=== PATIENT | female | born 1950 | race Hispanic/Latino ===

== ENCOUNTER 2017-08-07 15:00 | Outpatient (RCR) | payer MEDICARE, OTHER ==
[~2017-08-07 15:00] MED LIST: CARAFATE1 GM PO; DIOVAN80 MG PO; ESTER-C 500 MG1 EACH PO; KEFLEX500 MG PO; LANTUS100 UNITS/ SC; LOVASTATIN40 MG PO; NORCO 7.5-3251 EACH PO; TYLENOL PO; TYLENOL W/ CODEINE PO
== END 2017-08-08 ==
LOC: PT 15:00
PROVIDERS: ATTEND Specialist
DX: M47.816 Spondylosis without myelopathy or radiculopathy, lumbar region (principal); M54.5 Low back pain; M53.86 Other specified dorsopathies, lumbar region; M62.81 Muscle weakness (generalized)
CPT/HCPCS: 97110 ×2; 97162; G8978; G8979

== ENCOUNTER 2017-08-25 11:00 | Outpatient (RCR) | payer MEDICARE, OTHER | END 2017-09-08 | LOC: PT 11:00 | PROVIDERS: ATTEND Specialist | DX: M47.816 Spondylosis without myelopathy or radiculopathy, lumbar region (principal); M53.86 Other specified dorsopathies, lumbar region; M54.5 Low back pain; M62.81 Muscle weakness (generalized) | CPT/HCPCS: 97010; 97110 ×7; G8979; G8980 ==

== ENCOUNTER 2018-08-06 10:00 | Outpatient (RCR) | payer MEDICARE, OTHER | END 2018-08-08 | LOC: ST 10:00 | PROVIDERS: ATTEND Physical Medicine & Rehabilitation | DX: I62.9 Nontraumatic intracranial hemorrhage, unspecified (principal); R13.10 Dysphagia, unspecified; Z87.01 Personal history of pneumonia (recurrent) | CPT/HCPCS: 92523 ==

== ENCOUNTER 2018-08-25 11:53 | Outpatient (RCR) | payer MEDICARE, OTHER | END 2018-09-08 | LOC: ST 11:53 | PROVIDERS: ATTEND Physical Medicine & Rehabilitation | DX: I62.9 Nontraumatic intracranial hemorrhage, unspecified (principal); I69.315 Cognitive social or emotional deficit following cerebral infarction; R53.1 Weakness; M62.81 Muscle weakness (generalized); R27.8 Other lack of coordination; R26.9 Unspecified abnormalities of gait and mobility; R26.81 Unsteadiness on feet ==

== ENCOUNTER 2018-09-11 14:58 | Inpatient (IN) | payer MEDICARE, OTHER ==
[~2018-09-11] VITALS: Ht 160 cm; Wt 72.1 kg
--- OUTSIDE RECORDS SUMMARY | 2018-09-11 15:03 | XMS REPORT ---
Author Author [facility] Address Unknown Phone Unavailable Care Team Providers Care Call Or Contact Centre Operator Name Role Phone Unavailable Unavailable Payers Payer Name Policy Type Policy Number Effective Date Expiration Date Problems This patient has no known problems. Allergies, Adverse Reactions, Alerts Allergy Name Allergy Type Status Severity Reaction(s) Onset Date Inactive Date Treating Clinician Comments No Known Allergies DA Active U 2018-08-10 00:00:00 No Known Allergies DA Active U 2018-07-02 00:00:00 No Known Allergies DA Active U 2018-06-24 00:00:00 No Known Allergies DA Active U 2017-09-11 00:00:00 Medications This patient has no known medications. Results Test Description Test Time Test Comments Text Results Atomic Results Result Comments GLUBED 2018-08-10 04:59:00 GLUBED (test code=GLUBED) 185 mg/dL 74-106 Performed by certified chief operator hydroformer at [facility] B-TYPE NATRIURETIC [id number] 04:25:00* Test Item Value Reference Range Comments B-TYPE NATRIURETIC PEPTIDE (test code=BNP) 71.85 pgram/mL 0-100 COMPREHENSIVE METABOLIC [id number] 04:18:00* Test Item Value Reference Range Comments SODIUM (test code=NA) 142 mmol/L 136-145 POTASSIUM (test code=K) 3.6 mmol/L 3.5-5.1 CHLORIDE (test code=CL) 110.0 mmol/L 98-107 CARBON DIOXIDE (test code=CO2) 23.0 mmol/L 21-32 ANION GAP (test code=GAP) 12.6 10-20 GLUCOSE (test code=GLU) 112 mg/dL 74-106 BLOOD UREA NITROGEN (test code=BUN) 12 mg/dL 7-18 GLOMERULAR FILTRATION RATE (test code=GFR) > 60 mL/min >=60 Estimated GFR by using Modified MDRD formula.Chronic kidney disease is defined as either kidney damageor GFR <60 mL/min/1.73 m2 for >3 months. CREATININE (test code=CREAT) 0.80 mg/dL 0.55-1.02 Note change in reference range due to change in reagent. BUN/CREATININE RATIO (test code=BUN/CREA) 15.0 10-20 TOTAL PROTEIN (test code=PROT) 6.2 gram/dL 6.4-8.2 ALBUMIN (test code=ALB) 2.2 g/dL 3.4-5.0 GLOBULIN (test code=GLOB) 4.0 gram/dL 2.7-4.2 ALBUMIN/GLOBULIN RATIO (test code=A/G) 0.6 0.75-1.50 CALCIUM (test code=CA) 8.5 mg/dL 8.5-10.1 BILIRUBIN TOTAL (test code=BILT) 0.20 mg/dL 0.0-1.0 SGOT/AST (test code=AST) 27 IUnit/L 15-37 SGPT/ALT (test code=ALT) 15 IUnit/L 12-78 ALKALINE PHOSPHATASE TOTAL (test code=ALKP) 95 IUnit/L 45-117 Note change in reference range due to change in reagent. [id number] 04:18:00* Test Item Value Reference Range Comments LIPASE (test code=LIP) 27 U/L 73.0-393.0 [id number] 04:18:00* Test Item Value Reference Range Comments CKMB (test code=CKMBT) < 1.0 ng/mL 0-6.0 [id number] 04:18:00* Test Item Value Reference Range Comments TROPONIN-I (test code=TROPI) <0.015 ng/mL 0-0.045 COMPREHENSIVE METABOLIC [id number] 04:01:00* Test Item Value Reference Range Comments SODIUM (test code=NA) 142 mmol/L 136-145 POTASSIUM (test code=K) 3.6 mmol/L 3.5-5.1 CHLORIDE (test code=CL) 110.0 mmol/L 98-107 CARBON DIOXIDE (test code=CO2) mmol/L 21-32 ANION GAP (test code=GAP) 10-20 GLUCOSE (test code=GLU) mg/dL 74-106 BLOOD UREA NITROGEN (test code=BUN) mg/dL 7-18 GLOMERULAR FILTRATION RATE (test code=GFR) mL/min >=60 CREATININE (test code=CREAT) mg/dL 0.55-1.02 BUN/CREATININE RATIO (test code=BUN/CREA) 10-20 TOTAL PROTEIN (test code=PROT) gram/dL 6.4-8.2 ALBUMIN (test code=ALB) g/dL 3.4-5.0 GLOBULIN (test code=GLOB) gram/dL 2.7-4.2 ALBUMIN/GLOBULIN RATIO (test code=A/G) 0.75-1.50 CALCIUM (test code=CA) mg/dL 8.5-10.1 BILIRUBIN TOTAL (test code=BILT) mg/dL 0.0-1.0 SGOT/AST (test code=AST) IUnit/L 15-37 SGPT/ALT (test code=ALT) IUnit/L 12-78 ALKALINE PHOSPHATASE TOTAL (test code=ALKP) IUnit/L 45-117 [id number] 04:01:00* Test Item Value Reference Range Comments LIPASE (test code=LIP) U/L 73.0-393.0 [id number] 04:01:00* Test Item Value Reference Range Comments CKMB (test code=CKMBT) ng/mL 0-6.0 [id number] 04:01:00* Test Item Value Reference Range Comments TROPONIN-I (test code=TROPI) ng/mL 0-0.045 URINALYSIS [id number] 03:49:00* Test Item Value Reference Range Comments UA COLOR (test code=COLU) COLORLESS YELLOW UA APPEARANCE (test code=APPU) CLEAR CLEAR UA GLUCOSE DIPSTICK (test code=DGLUU) NEGATIVE mg/dL NEGATIVE UA BILIRUBIN DIPSTICK (test code=BILU) NEGATIVE mg/dL NEGATIVE UA KETONE DIPSTICK (test code=KETU) NEGATIVE mg/dL NEGATIVE UA SPECIFIC GRAVITY (test code=SGU) 1.005 1.001-1.035 UA BLOOD DIPSTICK (test code=AZAEL) Negative mg/dL NEGATIVE UA PH DIPSTICK (test code=MARK) 6.0 5.0-8.0 UA PROTEIN DIPSTICK (test code=PROU) NEGATIVE mg/dL NEGATIVE UA UROBILINIOGEN DIPSTICK (test code=URO) Normal mg/dL NEGATIVE UA NITRITE DIPSTICK (test code=ROXANN) NEGATIVE NEGATIVE UA LEUKOCYTE ESTERASE W REFLEX (test code=LEUUR) NEGATIVE Gloria/uL NEGATIVE UA WBC (test code=WBCU) 0-5 per HPF 0-5 UA RBC (test code=RBCU) 0-2 #/HPF 0-5 UA EPITHELIAL CELLS (test code=EPIU) FEW per HPF FEW UA BACTERIA (test code=BACU) MODERATE #/HPF NONE Urine Source? Clean CatchCBC W/AUTO [id number] 03:43:00* Test Item Value Reference Range Comments WHITE BLOOD CELL (test code=WBC) 7.3 K/mm3 4.5-12.5 RED BLOOD CELL (test code=RBC) 4.04 mill/mm3 3.7-5.2 HEMOGLOBIN (test code=HGB) 12.9 gram/dL 11.5-15.5 HEMATOCRIT (test code=HCT) 41.3 % 36.0-46.0 MEAN CELL VOLUME (test code=MCV) 102.2 fL 80-98 MEAN CELL HGB (test code=MCH) 31.9 picogram 27.0-33.0 MEAN CELL HGB CONCETRATION (test code=MCHC) 31.2 gram/dL 33.0-36.0 RED CELL DISTRIBUTION WIDTH (test code=RDW) 12.3 % 11.6-16.2 RED CELL DISTRIBUTION WIDTH SD (test code=RDW-SD) 45.9 fL 37.0-51.0 PLATELET COUNT (test code=PLT) 171 K/mm3 150-450 MEAN PLATELET VOLUME (test code=MPV) 9.8 fL 6.7-11.0 NEUTROPHIL % (test code=NT%) 73.1 % 39.0-69.0 IMMATURE GRANULOCYTE % (test code=IG%) 0.3 % 0.0-5.0 LYMPHOCYTE % (test code=LY%) 19.2 % 25.0-55.0 MONOCYTE % (test code=MO%) 6.6 % 0.0-10.0 EOSINOPHIL % (test code=EO%) 0.4 % 0.0-5.0 BASOPHIL % (test code=BA%) 0.4 % 0.0-1.0 NUCLEATED RBC % (test code=NRBC%) 0.0 % 0-0 NEUTROPHIL # (test code=NT#) 5.30 K/mm3 1.8-7.7 IMMATURE GRANULOCYTE # (test code=IG#) 0.02 x10 3/uL 0-0.03 LYMPHOCYTE # (test code=LY#) 1.39 K/mm3 1.0-5.0 MONOCYTE # (test code=MO#) 0.48 K/mm3 0-0.8 EOSINOPHIL # (test code=EO#) 0.03 K/mm3 0.0-0.5 BASOPHIL # (test code=BA#) 0.03 K/mm3 0.0-0.2 NUCLEATED RBC # (test code=NRBC#) 0.00 K/mm3 0.0-0.1 CBC W/AUTO [id number] 03:39:00* Test Item Value Reference Range Comments WHITE BLOOD CELL (test code=WBC) K/mm3 4.5-12.5 RED BLOOD CELL (test code=RBC) mill/mm3 3.7-5.2 HEMOGLOBIN (test code=HGB) 12.9 gram/dL 11.5-15.5 HEMATOCRIT (test code=HCT) 41.3 % 36.0-46.0 MEAN CELL VOLUME (test code=MCV) fL 80-98 MEAN CELL HGB (test code=MCH) picogram 27.0-33.0 MEAN CELL HGB CONCETRATION (test code=MCHC) gram/dL 33.0-36.0 RED CELL DISTRIBUTION WIDTH (test code=RDW) % 11.6-16.2 RED CELL DISTRIBUTION WIDTH SD (test code=RDW-SD) fL 37.0-51.0 PLATELET COUNT (test code=PLT) K/mm3 150-450 MEAN PLATELET VOLUME (test code=MPV) fL 6.7-11.0 NEUTROPHIL % (test code=NT%) % 39.0-69.0 IMMATURE GRANULOCYTE % (test code=IG%) % 0.0-5.0 LYMPHOCYTE % (test code=LY%) % 25.0-55.0 MONOCYTE % (test code=MO%) % 0.0-10.0 EOSINOPHIL % (test code=EO%) % 0.0-5.0 BASOPHIL % (test code=BA%) % 0.0-1.0 NEUTROPHIL # (test code=NT#) K/mm3 1.8-7.7 LYMPHOCYTE # (test code=LY#) K/mm3 1.0-5.0 MONOCYTE # (test code=MO#) K/mm3 0-0.8 EOSINOPHIL # (test code=EO#) K/mm3 0.0-0.5 BASOPHIL # (test code=BA#) K/mm3 0.0-0.2 - CT HEAD/BRAIN W/O [id number] 03:07:00 Name: DALLINSABRINA [facility] : 1950 Age/S: 68 / F [address] [facility] Unit #: [id number] Loc: [place] [address] Phys: Audrey Valencia MD Acct: [id number] Dis Date: Status: PRE ER PHONE #: [phone] Exam Date: 08/10/2018 0300 FAX #: [phone] Reason: ams EXAMS: CPT CODE: [id number] CT HEAD/BRAIN W/O CONT 24182 EXAM: - CT HEAD/BRAIN W/O CONT Location code:C3 HISTORY: 68 years -old Female with ams TECHNIQUE: Axial CT images from the skull base to the vertex without intravenous contrast. Coronal and sagittal reformatted images were created from the data set. One or more of the following dose reduction techniques were used: Automated exposure control, adjustment of the mA and/or kV according to patient size, and/or utilization of iterative reconstruction technique. COMPARISON: 07/13/2018 FINDINGS: Intracranial: There is left temporal encepha lomalacia present in the area of previously seen hemorrhage or infarction. No new area of intracranial hemorrhage demonstrated No hyd rocephalus. No intracranial mass demonstrated. Previously seen mass effe ct is improved. No acute osseous abnormalities. No significant sinus opa cification. Vascular calcifications are noted. No other changes. IMPRESSION: 1. Expected evolutionary changes of prev iously seen area left temporal hemorrhage with encephalomalacia noted in this region. Mass effect is improved. No new hemorrhage demonstrated. No other changes. at 0307 Reported and signed by: Pratibha Donovan MD CC: John Santillan MD; Audrey Valencia MD Technol ogist:JOSEPHINE ARANDA CT CTDI: DLP: Trnscb Date/Time: 08/10/2018 (030) [email or web address] Orig Print D/T: S: 08/10/2018 (6849) PAGE 1 Signed Report - XR CHEST 1 [id number] 03:04:00 FAX: John Lombardo [phone] [place]: St: PRE FAX: Audrey Marquez [phone] Name: SABRINA ZAMARRIPA [facility] : 1950 Age/S: 68/F [address] [facility] Unit #: [id number] Loc: [place] [address] Phys: Audrey Valencia MD Acct: [id number] Dis Date: Status: PRE ER PHONE #: [phone] Exam Date: 08/10/2018 030 FAX #: [phone] Reason: ams EXAMS: CPT CODE: [id number] XR CHEST 1 V 24050 HISTORY: Altered mental status Location: C3 COMPARISON:07/09/2018 FINDINGS: There is car diomegaly. Vascularity is upper normal. The lungs are clear of focal con solidation. No effusion, pneumothorax, or acute osseous abnormality. IMPRESSION: 1. Cardiomegaly. No focal con solidation. at 0304 Reported and signed by: Pratibha Donovan MD CC: John Santillan MD; Audrey Valencia MD Techn ologist: RT RAKESH Trnscrd Date/Grant e/By: 08/10/2018 (030) : By: [email or web address] Orig Print D/T: S: 08/10/2018 (6891) PAGE 1 Signed Report [id number] 02:54:00* Test Item Value Reference Range Comments GLUBED (test code=GLUBED) 72 mg/dL 74-106 Performed by certified chief operator hydroformer at [facility] [id number] 11:11:00* Test Item Value Reference Range Comments GLUBED (test code=GLUBED) 172 mg/dL 74-106 Performed by certified chief operator hydroformer at [facility] [id number] 21:32:00* Test Item Value Reference Range Comments GLUBED (test code=GLUBED) 168 mg/dL 74-106 Performed by certified chief operator hydroformer at [facility] [id number] 20:16:00* Test Item Value Reference Range Comments GLUBED (test code=GLUBED) 66 mg/dL 74-106 Performed by certified chief operator hydroformer at [facility] [id number] 15:57:00* Test Item Value Reference Range Comments GLUBED (test code=GLUBED) 168 mg/dL 74-106 Performed by certified chief operator hydroformer at [facility] - CT HEAD/BRAIN W/O [id number] 13:13:00 Name: SABRINA ZAMARRIPA [facility] : 1950 Age/S: 68 / F [address] [facility] Unit #: [id number] Loc: [place] [address] Phys: Doris Bush MD Acct: [id number] Dis Date: Status: ADM IN PHONE #: [phone] Exam Date: 07/13/2018 1305 FAX #: [phone] Reason: AMS, headache EXAMS: CPT CODE: [id number] CT HEAD/BRAIN W/O CONT 08688 HISTORY: Confusion and headaches. COMPARISON: Head CT July 05, 2018. CT brain without contrast: Automated exposure control.. Resolving extensive left frontal and parietal hemorrhage noted. There is decreasing mass effect on the subjacent brain parenchyma. Decreasing subfalcine herniation towards the right side estimated at 7.3 cm. No new hemorrhage is noted. 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 No new hemorrhage. No hydrocephalus. Fourth ventricle remains midline. No new acute territorial vascular infarction. Chronic white matter ischemic disease. The intraorbital contents are unremarkable. The paranasal sinuses are clear. Mastoid air cells are clear. 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 IMPRESSION: Decreasing parenchymal hemorrhage in the left temporal and parietal cortex with decreasing mass effect and decreasing subfalcine herniation. No new hemorrhage or new territorial infarction. at 1313 Reported and sign ed by: Cortez Esparza M.D. CC: Doris Bush MD; Wendi Chaudhary [facility]; John Santillan MD Technologist:Rajwinder Daly RT(R),CT CTDI: D LP: Trnscb Date/Time: 07/13/2018 (1313) [email or web address] Orig Print D/T: S: 07/13/2018 (5775) PAGE 1 Signed R eport [id number] 11:19:00* Test Item Value Reference Range Comments GLUBED (test code=GLUBED) 240 mg/dL 74-106 Performed by certified chief operator hydroformer at [facility] [id number] 06:49:00* Test Item Value Reference Range Comments GLUBED (test code=GLUBED) 104 mg/dL 74-106 Performed by certified chief operator hydroformer at [facility] [id number] 20:41:00* Test Item Value Reference Range Comments GLUBED (test code=GLUBED) 130 mg/dL 74-106 Performed by certified chief operator hydroformer at [facility] [id number] 15:23:00* Test Item Value Reference Range Comments GLUBED (test code=GLUBED) 198 mg/dL 74-106 Performed by certified chief operator hydroformer at [facility] [id number] 10:51:00* Test Item Value Reference Range Comments GLUBED (test code=GLUBED) 160 mg/dL 74-106 Performed by certified chief operator hydroformer at [facility] [id number] 07:14:00* Test Item Value Reference Range Comments GLUBED (test code=GLUBED) 99 mg/dL 74-106 Performed by certified chief operator hydroformer at [facility] URINALYSIS [id number] 21:51:00* Test Item Value Reference Range Comments UA COLOR (test code=COLU) YELLOW YELLOW UA APPEARANCE (test code=APPU) CLEAR CLEAR UA GLUCOSE DIPSTICK (test code=DGLUU) NEGATIVE mg/dL NEGATIVE UA BILIRUBIN DIPSTICK (test code=BILU) NEGATIVE mg/dL NEGATIVE UA KETONE DIPSTICK (test code=KETU) NEGATIVE mg/dL NEGATIVE UA SPECIFIC GRAVITY (test code=SGU) 1.019 1.001-1.035 UA BLOOD DIPSTICK (test code=AZAEL) Negative mg/dL NEGATIVE UA PH DIPSTICK (test code=MARK) 7.0 5.0-8.0 UA PROTEIN DIPSTICK (test code=PROU) NEGATIVE mg/dL NEGATIVE UA UROBILINIOGEN DIPSTICK (test code=URO) 4.0 (2+) mg/dL NEGATIVE UA NITRITE DIPSTICK (test code=ROXANN) NEGATIVE NEGATIVE UA LEUKOCYTE ESTERASE W REFLEX (test code=LEUUR) NEGATIVE Gloria/uL NEGATIVE UA WBC (test code=WBCU) 0-5 per HPF 0-5 UA RBC (test code=RBCU) 0-2 #/HPF 0-5 UA EPITHELIAL CELLS (test code=EPIU) FEW per HPF FEW UA BACTERIA (test code=BACU) FEW #/HPF NONE UA MUCUS (test code=MUCU) FEW #/LPF FEW Urine Source? Clean CatchURINALYSIS [id number] 21:47:00* Test Item Value Reference Range Comments UA COLOR (test code=COLU) YELLOW YELLOW UA APPEARANCE (test code=APPU) CLEAR CLEAR UA GLUCOSE DIPSTICK (test code=DGLUU) NEGATIVE mg/dL NEGATIVE UA BILIRUBIN DIPSTICK (test code=BILU) NEGATIVE mg/dL NEGATIVE UA KETONE DIPSTICK (test code=KETU) NEGATIVE mg/dL NEGATIVE UA SPECIFIC GRAVITY (test code=SGU) 1.019 1.001-1.035 UA BLOOD DIPSTICK (test code=AZAEL) Negative mg/dL NEGATIVE UA PH DIPSTICK (test code=MARK) 7.0 5.0-8.0 UA PROTEIN DIPSTICK (test code=PROU) NEGATIVE mg/dL NEGATIVE UA UROBILINIOGEN DIPSTICK (test code=URO) 4.0 (2+) mg/dL NEGATIVE UA NITRITE DIPSTICK (test code=ROXANN) NEGATIVE NEGATIVE UA LEUKOCYTE ESTERASE W REFLEX (test code=LEUUR) NEGATIVE Gloria/uL NEGATIVE UA WBC (test code=WBCU) per HPF 0-5 UA RBC (test code=RBCU) per HPF 0-5 UA EPITHELIAL CELLS (test code=EPIU) per HPF Few UA BACTERIA (test code=BACU) per HPF NONE Urine Source? Clean [id number] 20:05:00* Test Item Value Reference Range Comments GLUBED (test code=GLUBED) 166 mg/dL 74-106 Performed by certified chief operator hydroformer at [facility] BASIC METABOLIC [id number] 19:56:00* Test Item Value Reference Range Comments SODIUM (test code=NA) 140 mmol/L 136-145 POTASSIUM (test code=K) 3.9 mmol/L 3.5-5.1 CHLORIDE (test code=CL) 104.0 mmol/L 98-107 CARBON DIOXIDE (test code=CO2) 31.0 mmol/L 21-32 ANION GAP (test code=GAP) 8.9 10-20 GLUCOSE (test code=GLU) 174 mg/dL 74-106 BLOOD UREA NITROGEN (test code=BUN) 16 mg/dL 7-18 GLOMERULAR FILTRATION RATE (test code=GFR) > 60 mL/min >=60 Estimated GFR by using Modified MDRD formula.Chronic kidney disease is defined as either kidney damageor GFR <60 mL/min/1.73 m2 for >3 months. CREATININE (test code=CREAT) 0.80 mg/dL 0.55-1.02 Note change in reference range due to change in reagent. BUN/CREATININE RATIO (test code=BUN/CREA) 20.0 10-20 CALCIUM (test code=CA) 9.3 mg/dL 8.5-10.1 BASIC METABOLIC [id number] 19:53:00* Test Item Value Reference Range Comments SODIUM (test code=NA) 140 mmol/L 136-145 POTASSIUM (test code=K) 3.9 mmol/L 3.5-5.1 CHLORIDE (test code=CL) 104.0 mmol/L 98-107 CARBON DIOXIDE (test code=CO2) mmol/L 21-32 ANION GAP (test code=GAP) 10-20 GLUCOSE (test code=GLU) mg/dL 74-106 BLOOD UREA NITROGEN (test code=BUN) mg/dL 7-18 GLOMERULAR FILTRATION RATE (test code=GFR) mL/min >=60 CREATININE (test code=CREAT) mg/dL 0.55-1.02 BUN/CREATININE RATIO (test code=BUN/CREA) 10-20 CALCIUM (test code=CA) mg/dL 8.5-10.1 BASIC METABOLIC [id number] 19:53:00* Test Item Value Reference Range Comments SODIUM (test code=NA) 140 mmol/L 136-145 POTASSIUM (test code=K) 3.9 mmol/L 3.5-5.1 CHLORIDE (test code=CL) 104.0 mmol/L 98-107 CARBON DIOXIDE (test code=CO2) mmol/L 21-32 ANION GAP (test code=GAP) 10-20 GLUCOSE (test code=GLU) mg/dL 74-106 BLOOD UREA NITROGEN (test code=BUN) mg/dL 7-18 GLOMERULAR FILTRATION RATE (test code=GFR) mL/min >=60 CREATININE (test code=CREAT) mg/dL 0.55-1.02 BUN/CREATININE RATIO (test code=BUN/CREA) 10-20 CALCIUM (test code=CA) 9.3 mg/dL 8.5-10.1 CBC W/AUTO [id number] 19:33:00* Test Item Value Reference Range Comments WHITE BLOOD CELL (test code=WBC) 8.9 K/mm3 4.5-12.5 RED BLOOD CELL (test code=RBC) 3.46 mill/mm3 3.7-5.2 HEMOGLOBIN (test code=HGB) 11.8 gram/dL 11.5-15.5 HEMATOCRIT (test code=HCT) 37.7 % 36.0-46.0 MEAN CELL VOLUME (test code=MCV) 109.0 fL 80-98 MEAN CELL HGB (test code=MCH) 34.1 picogram 27.0-33.0 MEAN CELL HGB CONCETRATION (test code=MCHC) 31.3 gram/dL 33.0-36.0 RED CELL DISTRIBUTION WIDTH (test code=RDW) 12.8 % 11.6-16.2 RED CELL DISTRIBUTION WIDTH SD (test code=RDW-SD) 51.6 fL 37.0-51.0 PLATELET COUNT (test code=PLT) 235 K/mm3 150-450 MEAN PLATELET VOLUME (test code=MPV) 9.3 fL 6.7-11.0 NEUTROPHIL % (test code=NT%) 71.7 % 39.0-69.0 IMMATURE GRANULOCYTE % (test code=IG%) 0.4 % 0.0-5.0 LYMPHOCYTE % (test code=LY%) 17.0 % 25.0-55.0 MONOCYTE % (test code=MO%) 9.1 % 0.0-10.0 EOSINOPHIL % (test code=EO%) 1.6 % 0.0-5.0 BASOPHIL % (test code=BA%) 0.2 % 0.0-1.0 NUCLEATED RBC % (test code=NRBC%) 0.0 % 0-0 NEUTROPHIL # (test code=NT#) 6.40 K/mm3 1.8-7.7 IMMATURE GRANULOCYTE # (test code=IG#) 0.04 x10 3/uL 0-0.03 LYMPHOCYTE # (test code=LY#) 1.52 K/mm3 1.0-5.0 MONOCYTE # (test code=MO#) 0.81 K/mm3 0-0.8 EOSINOPHIL # (test code=EO#) 0.14 K/mm3 0.0-0.5 BASOPHIL # (test code=BA#) 0.02 K/mm3 0.0-0.2 NUCLEATED RBC # (test code=NRBC#) 0.00 K/mm3 0.0-0.1 MANUAL DIFF REQUIRED (test code=MDIFF) NO CBC W/AUTO [id number] 19:32:00* Test Item Value Reference Range Comments WHITE BLOOD CELL (test code=WBC) K/mm3 4.5-12.5 RED BLOOD CELL (test code=RBC) mill/mm3 3.7-5.2 HEMOGLOBIN (test code=HGB) 11.8 gram/dL 11.5-15.5 HEMATOCRIT (test code=HCT) 37.7 % 36.0-46.0 MEAN CELL VOLUME (test code=MCV) fL 80-98 MEAN CELL HGB (test code=MCH) picogram 27.0-33.0 MEAN CELL HGB CONCETRATION (test code=MCHC) gram/dL 33.0-36.0 RED CELL DISTRIBUTION WIDTH (test code=RDW) % 11.6-16.2 RED CELL DISTRIBUTION WIDTH SD (test code=RDW-SD) fL 37.0-51.0 PLATELET COUNT (test code=PLT) K/mm3 150-450 MEAN PLATELET VOLUME (test code=MPV) fL 6.7-11.0 NEUTROPHIL % (test code=NT%) % 39.0-69.0 IMMATURE GRANULOCYTE % (test code=IG%) % 0.0-5.0 LYMPHOCYTE % (test code=LY%) % 25.0-55.0 MONOCYTE % (test code=MO%) % 0.0-10.0 EOSINOPHIL % (test code=EO%) % 0.0-5.0 BASOPHIL % (test code=BA%) % 0.0-1.0 NEUTROPHIL # (test code=NT#) K/mm3 1.8-7.7 LYMPHOCYTE # (test code=LY#) K/mm3 1.0-5.0 MONOCYTE # (test code=MO#) K/mm3 0-0.8 EOSINOPHIL # (test code=EO#) K/mm3 0.0-0.5 BASOPHIL # (test code=BA#) K/mm3 0.0-0.2 [id number] 15:35:00* Test Item Value Reference Range Comments GLUBED (test code=GLUBED) 200 mg/dL 74-106 Performed by certified chief operator hydroformer at [facility] [id number] 12:24:00* Test Item Value Reference Range Comments GLUBED (test code=GLUBED) 199 mg/dL 74-106 Performed by certified chief operator hydroformer at [facility] [id number] 06:26:00* Test Item Value Reference Range Comments GLUBED (test code=GLUBED) 125 mg/dL 74-106 Performed by certified chief operator hydroformer at [facility] [id number] 19:57:00* Test Item Value Reference Range Comments GLUBED (test code=GLUBED) 282 mg/dL 74-106 Performed by certified chief operator hydroformer at [facility] [id number] 16:18:00* Test Item Value Reference Range Comments GLUBED (test code=GLUBED) 222 mg/dL 74-106 Performed by certified chief operator hydroformer at [facility] [id number] 11:29:00* Test Item Value Reference Range Comments GLUBED (test code=GLUBED) 165 mg/dL 74-106 Performed by certified chief operator hydroformer at [facility] [id number] 07:17:00* Test Item Value Reference Range Comments GLUBED (test code=GLUBED) 88 mg/dL 74-106 Performed by certified chief operator hydroformer at [facility] BASIC METABOLIC [id number] 07:15:00* Test Item Value Reference Range Comments SODIUM (test code=NA) 144 mmol/L 136-145 POTASSIUM (test code=K) 3.5 mmol/L 3.5-5.1 CHLORIDE (test code=CL) 108.0 mmol/L 98-107 CARBON DIOXIDE (test code=CO2) 33.0 mmol/L 21-32 ANION GAP (test code=GAP) 6.5 10-20 GLUCOSE (test code=GLU) 66 mg/dL 74-106 BLOOD UREA NITROGEN (test code=BUN) 21 mg/dL 7-18 GLOMERULAR FILTRATION RATE (test code=GFR) > 60 mL/min >=60 Estimated GFR by using Modified MDRD formula.Chronic kidney disease is defined as either kidney damageor GFR <60 mL/min/1.73 m2 for >3 months. CREATININE (test code=CREAT) 0.60 mg/dL 0.55-1.02 Note change in reference range due to change in reagent. BUN/CREATININE RATIO (test code=BUN/CREA) 35.0 10-20 CALCIUM (test code=CA) 9.0 mg/dL 8.5-10.1 [id number] 07:15:00* Test Item Value Reference Range Comments MAGNESIUM (test code=MAG) 2.0 mg/dL 1.8-2.4 BASIC METABOLIC [id number] 07:09:00* Test Item Value Reference Range Comments SODIUM (test code=NA) 144 mmol/L 136-145 POTASSIUM (test code=K) 3.5 mmol/L 3.5-5.1 CHLORIDE (test code=CL) 108.0 mmol/L 98-107 CARBON DIOXIDE (test code=CO2) mmol/L 21-32 ANION GAP (test code=GAP) 10-20 GLUCOSE (test code=GLU) mg/dL 74-106 BLOOD UREA NITROGEN (test code=BUN) mg/dL 7-18 GLOMERULAR FILTRATION RATE (test code=GFR) mL/min >=60 CREATININE (test code=CREAT) mg/dL 0.55-1.02 BUN/CREATININE RATIO (test code=BUN/CREA) 10-20 CALCIUM (test code=CA) mg/dL 8.5-10.1 [id number] 07:09:00* Test Item Value Reference Range Comments MAGNESIUM (test code=MAG) mg/dL 1.8-2.4 CBC W/O [id number] 06:54:00* Test Item Value Reference Range Comments WHITE BLOOD CELL (test code=WBC) 12.0 K/mm3 4.5-12.5 RED BLOOD CELL (test code=RBC) 3.13 mill/mm3 3.7-5.2 HEMOGLOBIN (test code=HGB) 10.8 gram/dL 11.5-15.5 HEMATOCRIT (test code=HCT) 34.3 % 36.0-46.0 MEAN CELL VOLUME (test code=MCV) 109.6 fL 80-98 MEAN CELL HGB (test code=MCH) 34.5 picogram 27.0-33.0 MEAN CELL HGB CONCETRATION (test code=MCHC) 31.5 gram/dL 33.0-36.0 RED CELL DISTRIBUTION WIDTH (test code=RDW) 13.0 % 11.6-16.2 PLATELET COUNT (test code=PLT) 223 K/mm3 150-450 MEAN PLATELET VOLUME (test code=MPV) 9.7 fL 6.7-11.0 [id number] 19:59:00* Test Item Value Reference Range Comments GLUBED (test code=GLUBED) 231 mg/dL 74-106 Performed by certified chief operator hydroformer at [facility] [id number] 15:56:00* Test Item Value Reference Range Comments GLUBED (test code=GLUBED) 290 mg/dL 74-106 Performed by certified chief operator hydroformer at [facility] - XR CHEST 2 [id number] 12:11:00 FAX: Grant Sotelo [phone] [place]: St: ADM FAX: John Lombardo [phone] Name: SABRINA ZAMARRIPA [facility] : 1950 Age/S: 68/F [address] [facility] Unit #: [id number] Loc: V.3095 [place] [address] Phys: Grant Chaudhary DO Acct: [id number] Dis Date: Status: ADM IN PHONE #: [phone] Exam Date: 07/09/2018 1120 FAX #: [phone] Reason: congestion EXAMS: CPT CODE: [id number] XR CHEST 2 V 24642 HISTORY: Congestion. COMPARISON: July 01, 2018. AP and lateral view of the chest: No acute infiltrates, effusion or congestion. Suboptimal inspiration. Dependent changes. Cardiac silhouette is mildly enlarged. DJD of the dorsal spine. IMPRESSION: No acute infiltrates, effusion or congestion. at 1211 Reported and signed by: Cortez Esparza M.D. CC: Grant Chaudhary DO; John Santillan MD Technologist: SUKI MEAD) Trnscrd Date/Time/By: 07/09/2018 (6931) : By: [email or web address] Orig Print D/T: S: 07/09/2018 (0820) PAGE 1 Signed Report [id number] 11:08:00* Test Item Value Reference Range Comments GLUBED (test code=GLUBED) 230 mg/dL 74-106 Performed by certified chief operator hydroformer at [facility] [id number] 06:07:00* Test Item Value Reference Range Comments GLUBED (test code=GLUBED) 123 mg/dL 74-106 Performed by certified chief operator hydroformer at [facility] [id number] 20:08:00* Test Item Value Reference Range Comments GLUBED (test code=GLUBED) 228 mg/dL 74-106 Performed by certified chief operator hydroformer at [facility] [id number] 19:53:00* Test Item Value Reference Range Comments GLUBED (test code=GLUBED) 240 mg/dL 74-106 Performed by certified chief operator hydroformer at [facility] [id number] 11:19:00* Test Item Value Reference Range Comments GLUBED (test code=GLUBED) 137 mg/dL 74-106 Performed by certified chief operator hydroformer at [facility] [id number] 06:23:00* Test Item Value Reference Range Comments GLUBED (test code=GLUBED) 153 mg/dL 74-106 Performed by certified chief operator hydroformer at [facility] [id number] 20:25:00* Test Item Value Reference Range Comments GLUBED (test code=GLUBED) 142 mg/dL 74-106 Performed by certified chief operator hydroformer at [facility] [id number] 16:22:00* Test Item Value Reference Range Comments GLUBED (test code=GLUBED) 150 mg/dL 74-106 Performed by certified chief operator hydroformer at [facility] [id number] 11:52:00* Test Item Value Reference Range Comments GLUBED (test code=GLUBED) 131 mg/dL 74-106 Performed by certified chief operator hydroformer at [facility] [id number] 06:45:00* Test Item Value Reference Range Comments GLUBED (test code=GLUBED) 166 mg/dL 74-106 Performed by certified chief operator hydroformer at [facility] URINALYSIS [id number] 22:15:00* Test Item Value Reference Range Comments UA COLOR (test code=COLU) YELLOW YELLOW UA APPEARANCE (test code=APPU) Cloudy CLEAR UA GLUCOSE DIPSTICK (test code=DGLUU) NEGATIVE mg/dL NEGATIVE UA BILIRUBIN DIPSTICK (test code=BILU) NEGATIVE mg/dL NEGATIVE UA KETONE DIPSTICK (test code=KETU) NEGATIVE mg/dL NEGATIVE UA SPECIFIC GRAVITY (test code=SGU) 1.025 1.001-1.035 UA BLOOD DIPSTICK (test code=AZAEL) Negative mg/dL NEGATIVE UA PH DIPSTICK (test code=MARK) 6.0 5.0-8.0 UA PROTEIN DIPSTICK (test code=PROU) 10 (Trace) mg/dL NEGATIVE UA UROBILINIOGEN DIPSTICK (test code=URO) 4.0 (2+) mg/dL NEGATIVE UA NITRITE DIPSTICK (test code=ROXANN) NEGATIVE NEGATIVE UA LEUKOCYTE ESTERASE W REFLEX (test code=LEUUR) 250 Gloria/uL (2+) Gloria/uL NEGATIVE UA WBC (test code=WBCU) 21-50 per HPF 0-5 UA RBC (test code=RBCU) 0-2 #/HPF 0-5 UA EPITHELIAL CELLS (test code=EPIU) FEW per HPF FEW UA BACTERIA (test code=BACU) MANY #/HPF NONE UA MUCUS (test code=MUCU) FEW #/LPF FEW Urine Source? CatheterURINALYSIS [id number] 22:12:00* Test Item Value Reference Range Comments UA COLOR (test code=COLU) YELLOW YELLOW UA APPEARANCE (test code=APPU) Cloudy CLEAR UA GLUCOSE DIPSTICK (test code=DGLUU) NEGATIVE mg/dL NEGATIVE UA BILIRUBIN DIPSTICK (test code=BILU) NEGATIVE mg/dL NEGATIVE UA KETONE DIPSTICK (test code=KETU) NEGATIVE mg/dL NEGATIVE UA SPECIFIC GRAVITY (test code=SGU) 1.025 1.001-1.035 UA BLOOD DIPSTICK (test code=AZAEL) Negative mg/dL NEGATIVE UA PH DIPSTICK (test code=MARK) 6.0 5.0-8.0 UA PROTEIN DIPSTICK (test code=PROU) 10 (Trace) mg/dL NEGATIVE UA UROBILINIOGEN DIPSTICK (test code=URO) 4.0 (2+) mg/dL NEGATIVE UA NITRITE DIPSTICK (test code=ROXANN) NEGATIVE NEGATIVE UA LEUKOCYTE ESTERASE W REFLEX (test code=LEUUR) 250 Gloria/uL (2+) Gloria/uL NEGATIVE UA WBC (test code=WBCU) per HPF 0-5 UA RBC (test code=RBCU) per HPF 0-5 UA EPITHELIAL CELLS (test code=EPIU) per HPF Few UA BACTERIA (test code=BACU) per HPF NONE Urine Source? [id number] 20:27:00* Test Item Value Reference Range Comments GLUBED (test code=GLUBED) 163 mg/dL 74-106 Performed by certified chief operator hydroformer at [facility] [id number] 16:14:00* Test Item Value Reference Range Comments GLUBED (test code=GLUBED) 209 mg/dL 74-106 Performed by certified chief operator hydroformer at [facility] - XR SWLW FUNC W/C [id number] 14:25:00 FAX: Grant Sotelo [phone] [place]: St: ADM FAX: John Lombardo [phone] Name: SABRINA ZAMARRIPA [facility] : 1950 Age/S: 68/F [address] [facility] Unit #: [id number] Loc: V.3095 [place] [address] Phys: Grant Chaudhary Adams DO Acct: [id number] Dis Date: Status: ADM IN PHONE #: [phone] Exam Date: 07/06/2018 1220 FAX #: [phone] Reason: SWALLOW EVAL EXAMS: CPT CODE: [id number] XR SWLW FUNC W/C V 45524 HISTORY: Dysphagia and aspiration. This study was performed in concert with the speech pathologist. Varying grades o f barium were administered. Single episode of aspiration with thin liquids. IMPRESSION: Single episode of aspira tion with thin liquids. For detailed evaluation please see the accompanying sheet provided by the speech therapist. Fluoroscopy time utilized was 86 seconds and 8 images were obtained duri ng the study. 19 at 1425 Reported and signed by: Cortez Esparza M.D. CC: Grant Chaudhary DO; John Santillan MD echnologist: RT KELSEY(R) Trnscrd Date /Time/By: 07/06/2018 (3561) : By: [email or web address] Orig Print D/T: S: 019 (5133) PAGE 1 Signed Report [id number] 11:33:00* Test Item Value Reference Range Comments GLUBED (test code=GLUBED) 143 mg/dL 74-106 Performed by certified chief operator hydroformer at [facility] [id number] 07:09:00* Test Item Value Reference Range Comments GLUBED (test code=GLUBED) 167 mg/dL 74-106 Performed by certified chief operator hydroformer at [facility] [id number] 20:55:00* Test Item Value Reference Range Comments GLUBED (test code=GLUBED) 101 mg/dL 74-106 Performed by certified chief operator hydroformer at [facility] [id number] 15:56:00* Test Item Value Reference Range Comments GLUBED (test code=GLUBED) 173 mg/dL 74-106 Performed by certified chief operator hydroformer at [facility] - CT HEAD/BRAIN W/O [id number] 12:32:00 Name: SABRINA ZAMARRIPA [facility] : 1950 Age/S: 68 / F [address] [facility] Unit #: [id number] Loc: [place] [address] Phys: Grant Chaudhary DO Acct: [id number] Dis Date: Status: ADM IN PHONE #: [phone] Exam Date: 07/05/2018 1211 FAX #: [phone] Reason: FALL EXAMS: CPT CODE: [id number] CT HEAD/BRAIN W/O CONT 08269 HISTORY: FALL; status post craniotomy TECHNIQUE: Noncontrast 2.[address] of the head. Examination acquired within 24 hours of arrival. Automated exposure control for dose reduction; DLP: 769 mGy-cm. COMPARISON: 07/01/18 FINDINGS: No acute hemorrhage. No CT evidence of acute infarct. No intracranial mass or mass effect. No hydrocephalus. No extra-axial fluid collection. Visualized paranasal sinuses are clear. Mastoid air cells and middle ear cavities are clear. Orbital contents are unremarkable. Calvarium and skull base are intact. IMPRESSION: Negative CT head. El ectronically Signed by Aure Rios D.O. on 07/05/2018 at 1232 Reported and signed by: Aure Rios D.O. CC: Grant Chaudhary DO; John Santillan MD Technologist:Rajwinder Daly RT(R),CT CTDI: DLP: Trnscb Date/Time: 07/05/2018 (1232) t.[email or web address] Orig Print D/T: S: 07/05/2018 (7347) PAGE 1 Signed Report [id number] 11:20:00* Test Item Value Reference Range Comments GLUBED (test code=GLUBED) 163 mg/dL 74-106 Performed by certified chief operator hydroformer at [facility] [id number] 07:17:00* Test Item Value Reference Range Comments GLUBED (test code=GLUBED) 141 mg/dL 74-106 Performed by certified chief operator hydroformer at [facility] [id number] 20:53:00* Test Item Value Reference Range Comments GLUBED (test code=GLUBED) 151 mg/dL 74-106 Performed by certified chief operator hydroformer at [facility] [id number] 15:58:00* Test Item Value Reference Range Comments GLUBED (test code=GLUBED) 218 mg/dL 74-106 Performed by certified chief operator hydroformer at [facility] [id number] 11:18:00* Test Item Value Reference Range Comments GLUBED (test code=GLUBED) 134 mg/dL 74-106 Performed by certified chief operator hydroformer at [facility] [id number] 07:14:00* Test Item Value Reference Range Comments GLUBED (test code=GLUBED) 123 mg/dL 74-106 Performed by certified chief operator hydroformer at [facility] [id number] 20:02:00* Test Item Value Reference Range Comments GLUBED (test code=GLUBED) 160 mg/dL 74-106 Performed by certified chief operator hydroformer at [facility] [id number] 16:25:00* Test Item Value Reference Range Comments GLUBED (test code=GLUBED) 304 mg/dL 74-106 Performed by certified chief operator hydroformer at [facility] [id number] 11:22:00* Test Item Value Reference Range Comments GLUBED (test code=GLUBED) 128 mg/dL 74-106 Performed by certified chief operator hydroformer at [facility] [id number] 06:02:00* Test Item Value Reference Range Comments GLUBED (test code=GLUBED) 155 mg/dL 74-106 Performed by certified chief operator hydroformer at [facility] [id number] 20:25:00* Test Item Value Reference Range Comments GLUBED (test code=GLUBED) 259 mg/dL 74-106 Performed by certified chief operator hydroformer at [facility] [id number] 16:55:00* Test Item Value Reference Range Comments GLUBED (test code=GLUBED) 277 mg/dL 74-106 Performed by certified chief operator hydroformer at [facility] [id number] 12:32:00* Test Item Value Reference Range Comments GLUBED (test code=GLUBED) 162 mg/dL 74-106 Performed by certified chief operator hydroformer at [facility] CBC W/O [id number] 10:18:00* Test Item Value Reference Range Comments WHITE BLOOD CELL (test code=WBC) 17.9 K/mm3 4.5-12.5 RED BLOOD CELL (test code=RBC) 3.22 mill/mm3 3.7-5.2 HEMOGLOBIN (test code=HGB) 11.1 gram/dL 11.5-15.5 HEMATOCRIT (test code=HCT) 34.9 % 36.0-46.0 MEAN CELL VOLUME (test code=MCV) 108.4 fL 80-98 MEAN CELL HGB (test code=MCH) 34.5 picogram 27.0-33.0 MEAN CELL HGB CONCETRATION (test code=MCHC) 31.8 gram/dL 33.0-36.0 RED CELL DISTRIBUTION WIDTH (test code=RDW) 12.0 % 11.6-16.2 PLATELET COUNT (test code=PLT) 203 K/mm3 150-450 MEAN PLATELET VOLUME (test code=MPV) 10.2 fL 6.7-11.0 [id number] 08:19:00* Test Item Value Reference Range Comments GLUBED (test code=GLUBED) 84 mg/dL 74-106 Performed by certified chief operator hydroformer at [facility] COMPREHENSIVE METABOLIC [id number] 05:16:00* Test Item Value Reference Range Comments SODIUM (test code=NA) 142 mmol/L 136-145 POTASSIUM (test code=K) 4.1 mmol/L 3.5-5.1 CHLORIDE (test code=CL) 109.0 mmol/L 98-107 CARBON DIOXIDE (test code=CO2) 24.0 mmol/L 21-32 ANION GAP (test code=GAP) 13.1 10-20 GLUCOSE (test code=GLU) 72 mg/dL 74-106 BLOOD UREA NITROGEN (test code=BUN) 22 mg/dL 7-18 GLOMERULAR FILTRATION RATE (test code=GFR) > 60 mL/min >=60 Estimated GFR by using Modified MDRD formula.Chronic kidney disease is defined as either kidney damageor GFR <60 mL/min/1.73 m2 for >3 months. CREATININE (test code=CREAT) 0.50 mg/dL 0.55-1.02 Note change in reference range due to change in reagent. BUN/CREATININE RATIO (test code=BUN/CREA) 44.0 10-20 TOTAL PROTEIN (test code=PROT) 5.1 gram/dL 6.4-8.2 ALBUMIN (test code=ALB) 2.1 g/dL 3.4-5.0 GLOBULIN (test code=GLOB) 3.0 gram/dL 2.7-4.2 ALBUMIN/GLOBULIN RATIO (test code=A/G) 0.7 0.75-1.50 CALCIUM (test code=CA) 7.5 mg/dL 8.5-10.1 BILIRUBIN TOTAL (test code=BILT) 0.50 mg/dL 0.0-1.0 SGOT/AST (test code=AST) 37 IUnit/L 15-37 SGPT/ALT (test code=ALT) 42 IUnit/L 12-78 ALKALINE PHOSPHATASE TOTAL (test code=ALKP) 68 IUnit/L 45-117 Note change in reference range due to change in reagent. [id number] 05:16:00* Test Item Value Reference Range Comments LIPASE (test code=LIP) 93 U/L 73.0-393.0 [id number] 05:11:00* Test Item Value Reference Range Comments AMMONIA (test code=AMM) 20 umol/L 11-32 COMPREHENSIVE METABOLIC [id number] 05:11:00* Test Item Value Reference Range Comments SODIUM (test code=NA) 142 mmol/L 136-145 POTASSIUM (test code=K) 4.1 mmol/L 3.5-5.1 CHLORIDE (test code=CL) 109.0 mmol/L 98-107 CARBON DIOXIDE (test code=CO2) mmol/L 21-32 ANION GAP (test code=GAP) 10-20 GLUCOSE (test code=GLU) mg/dL 74-106 BLOOD UREA NITROGEN (test code=BUN) mg/dL 7-18 GLOMERULAR FILTRATION RATE (test code=GFR) mL/min >=60 CREATININE (test code=CREAT) mg/dL 0.55-1.02 BUN/CREATININE RATIO (test code=BUN/CREA) 10-20 TOTAL PROTEIN (test code=PROT) gram/dL 6.4-8.2 ALBUMIN (test code=ALB) g/dL 3.4-5.0 GLOBULIN (test code=GLOB) gram/dL 2.7-4.2 ALBUMIN/GLOBULIN RATIO (test code=A/G) 0.75-1.50 CALCIUM (test code=CA) mg/dL 8.5-10.1 BILIRUBIN TOTAL (test code=BILT) mg/dL 0.0-1.0 SGOT/AST (test code=AST) IUnit/L 15-37 SGPT/ALT (test code=ALT) IUnit/L 12-78 ALKALINE PHOSPHATASE TOTAL (test code=ALKP) IUnit/L 45-117 [id number] 05:11:00* Test Item Value Reference Range Comments LIPASE (test code=LIP) U/L 73.0-393.0 [id number] 03:37:00* Test Item Value Reference Range Comments GLUBED (test code=GLUBED) 76 mg/dL 74-106 Performed by certified chief operator hydroformer at [facility] [id number] 20:33:00* Test Item Value Reference Range Comments GLUBED (test code=GLUBED) 302 mg/dL 74-106 Performed by certified chief operator hydroformer at [facility] - XR CHEST 1 [id number] 20:06:00 FAX: Byron Woodard MD [phone] [place]: St: ADM FAX: John Lombardo [phone] FAX: Josephine Ha [phone] Name: SABRINA ZAMARRIPA [facility] : 1950 Age/S: 68/F [address] [facility] Unit #: [id number] Loc: V.5005 [place] [address] Phys: Byron Barron MD Acct: [id number] Dis Date: Status: ADM IN [facility] #: [phone] Exam Date: 07/01/20181947 FAX #: [phone] Reason: screening, AMS EXAMS: CPT CODE: [id number] XR CHEST 1 V 37303 HISTORY: Confu duran. COMPARISON: June 29, 2018. No acute infiltrates , effusion or congestion is noted. Suboptimal inspiration with dependent changes. Cardiomegaly. IMPRESSION: No acute infiltrates, effusion or congestion. Electronically Si gned by Lm Esparza on 07/01/2018 at 2006 Reported and signed by: Cortez Esparza M.D. CC: Byron Barron MD; John Santillan MD; Josephine Ha Technologist: Dari Gregorio) [facility] Date/Time/By: 07/01/2018 (2005) : By: [email or web address] Orig Print D/T: S: 07/01/2018 (2008) PAGE 1 Signed Report GLURAMIN 2018-07-01 17:31:00* Test Item Value Reference Range Comments GLURAMIN (test code=GLURAMIN) 405 mg/dL 74-106 Performed by certified chief operator hydroformer at [facility] - CT HEAD/BRAIN W/O [id number] 16:49:00 Name: SABRINA ZAMARRIPA [facility] : 1950 Age/S: 68 / F [address] [facility] Unit #: [id number] Loc: [facility] [place] [address] Phys: Emaneul Lam MD Acct: [id number] Dis Date: Status: ADM IN PHONE #: [phone] Exam Date: 07/01/2018 1640 FAX #: [phone] Reason: f/u hemorrhage EXAMS: CPT CODE: [id number] CT HEAD/BRAIN W/O CONT 69640 TECHNIQUE: - CT HEAD/BRAIN W/O CONT . This exam was performed using one or more of the following dose reduction techniques: Automated exposure control, adjustment of the mA and/ or kV according to patient size or use of iterative reconstruction technique. COMPARISON: CT brain 06/26/2018 HISTORY: 68 years Female f/u hemorrhage FINDINGS: Diffuse areas of hemorrhage most prominent left temporal lobe, left frontal lobe, left basal ganglia. Moderate surrounding edema and mass effect. This area of hemorrhage measures at least 7 x 3 cm in greatest diameter. Effacement of the left lateral ventricle. Yvcv-zs-ckhrd shift of the midline at the level of the lateral ventricles are at least 8 mm. Diffuse swelling of the left cerebral hemisphere. Subtle prominence of the right lateral ventricle suggesting early entrapment. Effacement of the basilar cisterns on the left side. Overall since the previous CT of the brain 06/26/2018 decreased left to right shift of midli ne. Decreased dilatation of the right lateral ventricle. Decreased areas o f swelling and hemorrhage on the left side. Previously seen air in the ext ra-axial space has resolved on the current exam. Left tempor al frontal craniotomy unremarkable. IMPRESSION: Diffuse areas of hemorrhage most prominent left temporal lobe, left fron katalina lobe, left basal ganglia. Moderate surrounding edema and mass effect . This area of hemorrhage measures at least 7 x 3 cm in greatest diamete r. Effacement of the left lateral ventricle. Dzlm-lu-opiqi shift of the midline at the level of the lateral ventricles are at least 8 mm. Diffus e swelling of the left cerebral hemisphere. Subtle prominence of the rig ht lateral ventricle suggesting early entrapment. Effacement of the basi lar cisterns on the left side. Overall since the previous CT of the brai n 06/26/2018 decreased left to right shift of PAGE 1 S igned Report (CONTINUED) Name: SABRINA ZAMARRIPA [facility] : 1950 Age/S: 68 / F [address] [facility] Unit #: [id number] Loc: [place] [address] Phys: Emanuel Lam MD Acct: [id number] Dis Date: Status: ADM IN PHONE #: [phone] Exam Date: 07/01/2018 1640 FAX #: [phone] Reason: f/u hemorrhage EXAMS: CPT CODE: [id number] CT HEAD/BRAIN W/O CONT 94406 <Continued> midline. Decreased dilatation of the right lateral ventricle. Decreased areas of swelling and hemorrhage on the left side. Previously seen air in the extra-axial space has resolved on the current exam. at 4437 Reported and signed by: Josephine Luciano M.D. CC: Emanuel Lam MD; John Santillan MD; Josephine Ha Technologist:PRATIBHA DUFF, RT(R) CT CTDI: DLP: Trnscb Date/Time: 07/01/2018 (164) t.TOMI Orig Print D/T: S: 07/01/2018 (738) PAGE 2 Signed Report CBC W/AUTO [id number] 16:38:00* Test Item Value Reference Range Comments WHITE BLOOD CELL (test code=WBC) 17.0 K/mm3 4.5-12.5 RED BLOOD CELL (test code=RBC) 3.47 mill/mm3 3.7-5.2 HEMOGLOBIN (test code=HGB) 12.1 gram/dL 11.5-15.5 HEMATOCRIT (test code=HCT) 36.7 % 36.0-46.0 MEAN CELL VOLUME (test code=MCV) 105.8 fL 80-98 MEAN CELL HGB (test code=MCH) 34.9 picogram 27.0-33.0 MEAN CELL HGB CONCETRATION (test code=MCHC) 33.0 gram/dL 33.0-36.0 RED CELL DISTRIBUTION WIDTH (test code=RDW) 12.0 % 11.6-16.2 RED CELL DISTRIBUTION WIDTH SD (test code=RDW-SD) 47.0 fL 37.0-51.0 PLATELET COUNT (test code=PLT) 222 K/mm3 150-450 RESULT VERIFIED BY REPEAT ANALYSIS MEAN PLATELET VOLUME (test code=MPV) 10.1 fL 6.7-11.0 NEUTROPHIL % (test code=NT%) 89.4 % 39.0-69.0 IMMATURE GRANULOCYTE % (test code=IG%) 1.6 % 0.0-5.0 LYMPHOCYTE % (test code=LY%) 4.4 % 25.0-55.0 MONOCYTE % (test code=MO%) 4.3 % 0.0-10.0 EOSINOPHIL % (test code=EO%) 0.1 % 0.0-5.0 BASOPHIL % (test code=BA%) 0.2 % 0.0-1.0 NUCLEATED RBC % (test code=NRBC%) 0.0 % 0-0 NEUTROPHIL # (test code=NT#) 15.23 K/mm3 1.8-7.7 IMMATURE GRANULOCYTE # (test code=IG#) 0.28 x10 3/uL 0-0.03 LYMPHOCYTE # (test code=LY#) 0.75 K/mm3 1.0-5.0 MONOCYTE # (test code=MO#) 0.73 K/mm3 0-0.8 EOSINOPHIL # (test code=EO#) 0.01 K/mm3 0.0-0.5 BASOPHIL # (test code=BA#) 0.03 K/mm3 0.0-0.2 NUCLEATED RBC # (test code=NRBC#) 0.00 K/mm3 0.0-0.1 MANUAL DIFF REQUIRED (test code=MDIFF) NO BASIC METABOLIC [id number] 16:15:00* Test Item Value Reference Range Comments SODIUM (test code=NA) 139 mmol/L 136-145 POTASSIUM (test code=K) 4.3 mmol/L 3.5-5.1 CHLORIDE (test code=CL) 103.0 mmol/L 98-107 CARBON DIOXIDE (test code=CO2) 24.0 mmol/L 21-32 ANION GAP (test code=GAP) 16.3 10-20 GLUCOSE (test code=GLU) 365 mg/dL 74-106 BLOOD UREA NITROGEN (test code=BUN) 27 mg/dL 7-18 GLOMERULAR FILTRATION RATE (test code=GFR) > 60 mL/min >=60 Estimated GFR by using Modified MDRD formula.Chronic kidney disease is defined as either kidney damageor GFR <60 mL/min/1.73 m2 for >3 months. CREATININE (test code=CREAT) 0.70 mg/dL 0.55-1.02 Note change in reference range due to change in reagent. BUN/CREATININE RATIO (test code=BUN/CREA) 38.6 10-20 CALCIUM (test code=CA) 8.5 mg/dL 8.5-10.1 BASIC METABOLIC [id number] 16:08:00* Test Item Value Reference Range Comments SODIUM (test code=NA) 139 mmol/L 136-145 POTASSIUM (test code=K) 4.3 mmol/L 3.5-5.1 CHLORIDE (test code=CL) 103.0 mmol/L 98-107 CARBON DIOXIDE (test code=CO2) mmol/L 21-32 ANION GAP (test code=GAP) 10-20 GLUCOSE (test code=GLU) mg/dL 74-106 BLOOD UREA NITROGEN (test code=BUN) mg/dL 7-18 GLOMERULAR FILTRATION RATE (test code=GFR) mL/min >=60 CREATININE (test code=CREAT) mg/dL 0.55-1.02 BUN/CREATININE RATIO (test code=BUN/CREA) 10-20 CALCIUM (test code=CA) mg/dL 8.5-10.1 [id number] 13:50:00* Test Item Value Reference Range Comments GLUBED (test code=GLUBED) 144 mg/dL 74-106 Performed by certified chief operator hydroformer at [facility] [id number] 10:27:00* Test Item Value Reference Range Comments GLUBED (test code=GLUBED) 264 mg/dL 74-106 Performed by certified chief operator hydroformer at [facility] [id number] 05:45:00* Test Item Value Reference Range Comments GLUBED (test code=GLUBED) 114 mg/dL 74-106 Performed by certified chief operator hydroformer at [facility] [id number] 01:45:00* Test Item Value Reference Range Comments GLUBED (test code=GLUBED) 116 mg/dL 74-106 Performed by certified chief operator hydroformer at [facility] [id number] 21:55:00* Test Item Value Reference Range Comments GLUBED (test code=GLUBED) 129 mg/dL 74-106 Performed by certified chief operator hydroformer at [facility] [id number] 17:59:00* Test Item Value Reference Range Comments GLUBED (test code=GLUBED) 114 mg/dL 74-106 Performed by certified chief operator hydroformer at [facility] [id number] 14:47:00* Test Item Value Reference Range Comments GLUBED (test code=GLUBED) 252 mg/dL 74-106 Performed by certified chief operator hydroformer at [facility] [id number] 14:43:00* Test Item Value Reference Range Comments GLUBED (test code=GLUBED) 342 mg/dL 74-106 Performed by certified chief operator hydroformer at [facility] CBC W/AUTO [id number] 06:32:00* Test Item Value Reference Range Comments WHITE BLOOD CELL (test code=WBC) 13.5 K/mm3 4.5-12.5 RED BLOOD CELL (test code=RBC) 3.50 mill/mm3 3.7-5.2 HEMOGLOBIN (test code=HGB) 12.1 gram/dL 11.5-15.5 HEMATOCRIT (test code=HCT) 38.1 % 36.0-46.0 MEAN CELL VOLUME (test code=MCV) 108.9 fL 80-98 MEAN CELL HGB (test code=MCH) 34.6 picogram 27.0-33.0 MEAN CELL HGB CONCETRATION (test code=MCHC) 31.8 gram/dL 33.0-36.0 RED CELL DISTRIBUTION WIDTH (test code=RDW) 11.9 % 11.6-16.2 RED CELL DISTRIBUTION WIDTH SD (test code=RDW-SD) 48.0 fL 37.0-51.0 PLATELET COUNT (test code=PLT) 160 K/mm3 150-450 RESULT VERIFIED BY REPEAT ANALYSIS MEAN PLATELET VOLUME (test code=MPV) 11.3 fL 6.7-11.0 NEUTROPHIL % (test code=NT%) 84.0 % 39.0-69.0 IMMATURE GRANULOCYTE % (test code=IG%) 1.6 % 0.0-5.0 LYMPHOCYTE % (test code=LY%) 8.9 % 25.0-55.0 MONOCYTE % (test code=MO%) 5.2 % 0.0-10.0 EOSINOPHIL % (test code=EO%) 0.0 % 0.0-5.0 BASOPHIL % (test code=BA%) 0.3 % 0.0-1.0 NUCLEATED RBC % (test code=NRBC%) 0.1 % 0-0 NEUTROPHIL # (test code=NT#) 11.38 K/mm3 1.8-7.7 IMMATURE GRANULOCYTE # (test code=IG#) 0.22 x10 3/uL 0-0.03 LYMPHOCYTE # (test code=LY#) 1.20 K/mm3 1.0-5.0 MONOCYTE # (test code=MO#) 0.70 K/mm3 0-0.8 EOSINOPHIL # (test code=EO#) 0.00 K/mm3 0.0-0.5 BASOPHIL # (test code=BA#) 0.04 K/mm3 0.0-0.2 NUCLEATED RBC # (test code=NRBC#) 0.02 K/mm3 0.0-0.1 MANUAL DIFF REQUIRED (test code=MDIFF) NO, ONLY SCAN NEEDED DIFFERENTIAL [id number] 06:32:00* Test Item Value Reference Range Comments STAIN ACCEPTABILITY (test code=STN ACCEPTABLE) STAIN ACCEPTABLE POLYCHROMASIA (test code=POLC) 3+ POIKILOCYTOSIS (test code=POIK) 2+ ANISOCYTOSIS (test code=ANISO) 3+ MACROCYTOSIS (test code=MACR) 3+ CRENATED CELLS (test code=CREN) 2+ PLATELET ESTIMATE (test code=PLTEST) ADEQUATE PLATELET MORPHOLOGY (test code=PLTMORPH) NORMAL [id number] 06:13:00* Test Item Value Reference Range Comments GLUBED (test code=GLUBED) 172 mg/dL 74-106 Performed by certified chief operator hydroformer at [facility] BASIC METABOLIC [id number] 05:56:00* Test Item Value Reference Range Comments SODIUM (test code=NA) 140 mmol/L 136-145 POTASSIUM (test code=K) 4.1 mmol/L 3.5-5.1 CHLORIDE (test code=CL) 105.0 mmol/L 98-107 CARBON DIOXIDE (test code=CO2) 25.0 mmol/L 21-32 ANION GAP (test code=GAP) 14.1 10-20 GLUCOSE (test code=GLU) 229 mg/dL 74-106 BLOOD UREA NITROGEN (test code=BUN) 26 mg/dL 7-18 RESULT VERIFIED BY REPEAT ANALYSIS GLOMERULAR FILTRATION RATE (test code=GFR) > 60 mL/min >=60 Estimated GFR by using Modified MDRD formula.Chronic kidney disease is defined as either kidney damageor GFR <60 mL/min/1.73 m2 for >3 months. CREATININE (test code=CREAT) 0.70 mg/dL 0.55-1.02 Note change in reference range due to change in reagent. BUN/CREATININE RATIO (test code=BUN/CREA) 37.1 10-20 CALCIUM (test code=CA) 8.9 mg/dL 8.5-10.1 VITAMIN [id number] 05:33:00* Test Item Value Reference Range Comments VITAMIN B12 (test code=VITB12) 355 pg/mL 193-986 CBC W/AUTO [id number] 04:49:00* Test Item Value Reference Range Comments WHITE BLOOD CELL (test code=WBC) 13.5 K/mm3 4.5-12.5 RED BLOOD CELL (test code=RBC) 3.50 mill/mm3 3.7-5.2 HEMOGLOBIN (test code=HGB) 12.1 gram/dL 11.5-15.5 HEMATOCRIT (test code=HCT) 38.1 % 36.0-46.0 MEAN CELL VOLUME (test code=MCV) 108.9 fL 80-98 MEAN CELL HGB (test code=MCH) 34.6 picogram 27.0-33.0 MEAN CELL HGB CONCETRATION (test code=MCHC) 31.8 gram/dL 33.0-36.0 RED CELL DISTRIBUTION WIDTH (test code=RDW) 11.9 % 11.6-16.2 RED CELL DISTRIBUTION WIDTH SD (test code=RDW-SD) 48.0 fL 37.0-51.0 PLATELET COUNT (test code=PLT) 160 K/mm3 150-450 RESULT VERIFIED BY REPEAT ANALYSIS MEAN PLATELET VOLUME (test code=MPV) 11.3 fL 6.7-11.0 NEUTROPHIL % (test code=NT%) 84.0 % 39.0-69.0 IMMATURE GRANULOCYTE % (test code=IG%) 1.6 % 0.0-5.0 LYMPHOCYTE % (test code=LY%) 8.9 % 25.0-55.0 MONOCYTE % (test code=MO%) 5.2 % 0.0-10.0 EOSINOPHIL % (test code=EO%) 0.0 % 0.0-5.0 BASOPHIL % (test code=BA%) 0.3 % 0.0-1.0 NUCLEATED RBC % (test code=NRBC%) 0.1 % 0-0 NEUTROPHIL # (test code=NT#) 11.38 K/mm3 1.8-7.7 IMMATURE GRANULOCYTE # (test code=IG#) 0.22 x10 3/uL 0-0.03 LYMPHOCYTE # (test code=LY#) 1.20 K/mm3 1.0-5.0 MONOCYTE # (test code=MO#) 0.70 K/mm3 0-0.8 EOSINOPHIL # (test code=EO#) 0.00 K/mm3 0.0-0.5 BASOPHIL # (test code=BA#) 0.04 K/mm3 0.0-0.2 NUCLEATED RBC # (test code=NRBC#) 0.02 K/mm3 0.0-0.1 MANUAL DIFF REQUIRED (test code=MDIFF) NO, ONLY SCAN NEEDED DIFFERENTIAL [id number] 04:49:00* Test Item Value Reference Range Comments STAIN ACCEPTABILITY (test code=STN ACCEPTABLE) CABOT RINGS (test code=CAB) MORPHOLOGY COMMENT (test code=MOC) PLATELET ESTIMATE (test code=PLTEST) PLATELET MORPHOLOGY (test code=PLTMORPH) CBC W/AUTO [id number] 04:49:00* Test Item Value Reference Range Comments WHITE BLOOD CELL (test code=WBC) 13.5 K/mm3 4.5-12.5 RED BLOOD CELL (test code=RBC) 3.50 mill/mm3 3.7-5.2 HEMOGLOBIN (test code=HGB) 12.1 gram/dL 11.5-15.5 HEMATOCRIT (test code=HCT) 38.1 % 36.0-46.0 MEAN CELL VOLUME (test code=MCV) 108.9 fL 80-98 MEAN CELL HGB (test code=MCH) 34.6 picogram 27.0-33.0 MEAN CELL HGB CONCETRATION (test code=MCHC) 31.8 gram/dL 33.0-36.0 RED CELL DISTRIBUTION WIDTH (test code=RDW) 11.9 % 11.6-16.2 RED CELL DISTRIBUTION WIDTH SD (test code=RDW-SD) 48.0 fL 37.0-51.0 PLATELET COUNT (test code=PLT) 160 K/mm3 150-450 RESULT VERIFIED BY REPEAT ANALYSIS MEAN PLATELET VOLUME (test code=MPV) 11.3 fL 6.7-11.0 NEUTROPHIL % (test code=NT%) 84.0 % 39.0-69.0 IMMATURE GRANULOCYTE % (test code=IG%) 1.6 % 0.0-5.0 LYMPHOCYTE % (test code=LY%) 8.9 % 25.0-55.0 MONOCYTE % (test code=MO%) 5.2 % 0.0-10.0 EOSINOPHIL % (test code=EO%) 0.0 % 0.0-5.0 BASOPHIL % (test code=BA%) 0.3 % 0.0-1.0 NUCLEATED RBC % (test code=NRBC%) 0.1 % 0-0 NEUTROPHIL # (test code=NT#) 11.38 K/mm3 1.8-7.7 IMMATURE GRANULOCYTE # (test code=IG#) 0.22 x10 3/uL 0-0.03 LYMPHOCYTE # (test code=LY#) 1.20 K/mm3 1.0-5.0 MONOCYTE # (test code=MO#) 0.70 K/mm3 0-0.8 EOSINOPHIL # (test code=EO#) 0.00 K/mm3 0.0-0.5 BASOPHIL # (test code=BA#) 0.04 K/mm3 0.0-0.2 NUCLEATED RBC # (test code=NRBC#) 0.02 K/mm3 0.0-0.1 MANUAL DIFF REQUIRED (test code=MDIFF) NO, ONLY SCAN NEEDED DIFFERENTIAL [id number] 04:49:00* Test Item Value Reference Range Comments STAIN ACCEPTABILITY (test code=STN ACCEPTABLE) CABOT RINGS (test code=CAB) MORPHOLOGY COMMENT (test code=MOC) PLATELET ESTIMATE (test code=PLTEST) PLATELET MORPHOLOGY (test code=PLTMORPH) CBC W/AUTO [id number] 04:49:00* Test Item Value Reference Range Comments WHITE BLOOD CELL (test code=WBC) 13.5 K/mm3 4.5-12.5 RED BLOOD CELL (test code=RBC) 3.50 mill/mm3 3.7-5.2 HEMOGLOBIN (test code=HGB) 12.1 gram/dL 11.5-15.5 HEMATOCRIT (test code=HCT) 38.1 % 36.0-46.0 MEAN CELL VOLUME (test code=MCV) 108.9 fL 80-98 MEAN CELL HGB (test code=MCH) 34.6 picogram 27.0-33.0 MEAN CELL HGB CONCETRATION (test code=MCHC) 31.8 gram/dL 33.0-36.0 RED CELL DISTRIBUTION WIDTH (test code=RDW) 11.9 % 11.6-16.2 RED CELL DISTRIBUTION WIDTH SD (test code=RDW-SD) 48.0 fL 37.0-51.0 PLATELET COUNT (test code=PLT) 160 K/mm3 150-450 RESULT VERIFIED BY REPEAT ANALYSIS MEAN PLATELET VOLUME (test code=MPV) 11.3 fL 6.7-11.0 NEUTROPHIL % (test code=NT%) 84.0 % 39.0-69.0 IMMATURE GRANULOCYTE % (test code=IG%) 1.6 % 0.0-5.0 LYMPHOCYTE % (test code=LY%) 8.9 % 25.0-55.0 MONOCYTE % (test code=MO%) 5.2 % 0.0-10.0 EOSINOPHIL % (test code=EO%) 0.0 % 0.0-5.0 BASOPHIL % (test code=BA%) 0.3 % 0.0-1.0 NUCLEATED RBC % (test code=NRBC%) 0.1 % 0-0 NEUTROPHIL # (test code=NT#) 11.38 K/mm3 1.8-7.7 IMMATURE GRANULOCYTE # (test code=IG#) 0.22 x10 3/uL 0-0.03 LYMPHOCYTE # (test code=LY#) 1.20 K/mm3 1.0-5.0 MONOCYTE # (test code=MO#) 0.70 K/mm3 0-0.8 EOSINOPHIL # (test code=EO#) 0.00 K/mm3 0.0-0.5 BASOPHIL # (test code=BA#) 0.04 K/mm3 0.0-0.2 NUCLEATED RBC # (test code=NRBC#) 0.02 K/mm3 0.0-0.1 MANUAL DIFF REQUIRED (test code=MDIFF) NO, ONLY SCAN NEEDED DIFFERENTIAL [id number] 04:49:00* Test Item Value Reference Range Comments STAIN ACCEPTABILITY (test code=STN ACCEPTABLE) MORPHOLOGY COMMENT (test code=MOC) PLATELET ESTIMATE (test code=PLTEST) PLATELET MORPHOLOGY (test code=PLTMORPH) CBC W/AUTO [id number] 04:49:00* Test Item Value Reference Range Comments WHITE BLOOD CELL (test code=WBC) 13.5 K/mm3 4.5-12.5 RED BLOOD CELL (test code=RBC) 3.50 mill/mm3 3.7-5.2 HEMOGLOBIN (test code=HGB) 12.1 gram/dL 11.5-15.5 HEMATOCRIT (test code=HCT) 38.1 % 36.0-46.0 MEAN CELL VOLUME (test code=MCV) 108.9 fL 80-98 MEAN CELL HGB (test code=MCH) 34.6 picogram 27.0-33.0 MEAN CELL HGB CONCETRATION (test code=MCHC) 31.8 gram/dL 33.0-36.0 RED CELL DISTRIBUTION WIDTH (test code=RDW) 11.9 % 11.6-16.2 RED CELL DISTRIBUTION WIDTH SD (test code=RDW-SD) 48.0 fL 37.0-51.0 PLATELET COUNT (test code=PLT) 160 K/mm3 150-450 RESULT VERIFIED BY REPEAT ANALYSIS MEAN PLATELET VOLUME (test code=MPV) 11.3 fL 6.7-11.0 NEUTROPHIL % (test code=NT%) 84.0 % 39.0-69.0 IMMATURE GRANULOCYTE % (test code=IG%) 1.6 % 0.0-5.0 LYMPHOCYTE % (test code=LY%) 8.9 % 25.0-55.0 MONOCYTE % (test code=MO%) 5.2 % 0.0-10.0 EOSINOPHIL % (test code=EO%) 0.0 % 0.0-5.0 BASOPHIL % (test code=BA%) 0.3 % 0.0-1.0 NUCLEATED RBC % (test code=NRBC%) 0.1 % 0-0 NEUTROPHIL # (test code=NT#) 11.38 K/mm3 1.8-7.7 IMMATURE GRANULOCYTE # (test code=IG#) 0.22 x10 3/uL 0-0.03 LYMPHOCYTE # (test code=LY#) 1.20 K/mm3 1.0-5.0 MONOCYTE # (test code=MO#) 0.70 K/mm3 0-0.8 EOSINOPHIL # (test code=EO#) 0.00 K/mm3 0.0-0.5 BASOPHIL # (test code=BA#) 0.04 K/mm3 0.0-0.2 NUCLEATED RBC # (test code=NRBC#) 0.02 K/mm3 0.0-0.1 MANUAL DIFF REQUIRED (test code=MDIFF) NO, ONLY SCAN NEEDED DIFFERENTIAL [id number] 04:49:00* Test Item Value Reference Range Comments STAIN ACCEPTABILITY (test code=STN ACCEPTABLE) CABOT RINGS (test code=CAB) MORPHOLOGY COMMENT (test code=MOC) PLATELET ESTIMATE (test code=PLTEST) PLATELET MORPHOLOGY (test code=PLTMORPH) BASIC METABOLIC [id number] 04:47:00* Test Item Value Reference Range Comments SODIUM (test code=NA) 140 mmol/L 136-145 POTASSIUM (test code=K) 4.1 mmol/L 3.5-5.1 CHLORIDE (test code=CL) 105.0 mmol/L 98-107 CARBON DIOXIDE (test code=CO2) mmol/L 21-32 ANION GAP (test code=GAP) 10-20 GLUCOSE (test code=GLU) mg/dL 74-106 BLOOD UREA NITROGEN (test code=BUN) mg/dL 7-18 GLOMERULAR FILTRATION RATE (test code=GFR) mL/min >=60 CREATININE (test code=CREAT) mg/dL 0.55-1.02 BUN/CREATININE RATIO (test code=BUN/CREA) 10-20 CALCIUM (test code=CA) mg/dL 8.5-10.1 [id number] 02:28:00* Test Item Value Reference Range Comments GLUBED (test code=GLUBED) 249 mg/dL 74-106 Performed by certified chief operator hydroformer at [facility] [id number] 20:33:00* Test Item Value Reference Range Comments GLUBED (test code=GLUBED) 332 mg/dL 74-106 Performed by certified chief operator hydroformer at [facility] [id number] 17:33:00* Test Item Value Reference Range Comments GLUBED (test code=GLUBED) 102 mg/dL 74-106 Performed by certified chief operator hydroformer at [facility] [id number] 13:58:00* Test Item Value Reference Range Comments GLUBED (test code=GLUBED) 207 mg/dL 74-106 Performed by certified chief operator hydroformer at [facility] [id number] 10:09:00* Test Item Value Reference Range Comments GLUBED (test code=GLUBED) 291 mg/dL 74-106 Performed by certified chief operator hydroformer at [facility] - XR CHEST 1 [id number] 06:43:00 FAX: Byron Woodard MD [phone] [place]: St: [facility] FAX: John Lombardo [phone] FAX: Josephine Ha [facility] [phone] Name: SABRINA ZAMARRIPA [facility] : 1950 Age/S: 68/F [address] Unit #: [id number] Loc: [place] [address] Phys: Byron Barron MD Acct: [id number] Dis Date: Status: ADM IN ONE #: [phone] Exam Date: 06/29/2018 05 FAX #: [phone] Reason: chf EXAMS: CPT CODE: [id number] XR CHEST 1 V [id number] REASON FOR EXAM: chf EXAM ORDER DATE: 06/29/2018 5:00 AM Or kyle Amato: Byron Barron MD PROCEDURE: - XR CHEST 1 V COMPARISON: 06/28/2018 FINDINGS: Portable AP frontal view of the chest obtained at 5:15 AM shows diffuse airspace opacity. There is no evidence of effusion. The heart size is minimally enlarged. Pulmonary vasculatures are minimally congested. IMPRESSION: Congest chase heart failure with pulmonary edema at 0643 Reported and signed by: Dashawn Plasencia M.D. CC: Byron Barron MD; John Santillan MD; Josephine Hah Technologist: PAL Rodriguez Trnscrd Date/Time/By: 06/29/2018 (0643) : By: [email or web address] Orig Print D /T: S: 06/29/2018 (0646) PAGE 1 S igned Report [id number] 05:30:00* Test Item Value Reference Range Comments GLUBED (test code=GLUBED) 163 mg/dL 74-106 Performed by certified chief operator hydroformer at [facility] COMPREHENSIVE METABOLIC [id number] 04:59:00* Test Item Value Reference Range Comments SODIUM (test code=NA) 144 mmol/L 136-145 POTASSIUM (test code=K) 3.8 mmol/L 3.5-5.1 CHLORIDE (test code=CL) 113.0 mmol/L 98-107 CARBON DIOXIDE (test code=CO2) 23.0 mmol/L 21-32 ANION GAP (test code=GAP) 11.8 10-20 GLUCOSE (test code=GLU) 177 mg/dL 74-106 BLOOD UREA NITROGEN (test code=BUN) 18 mg/dL 7-18 GLOMERULAR FILTRATION RATE (test code=GFR) > 60 mL/min >=60 Estimated GFR by using Modified MDRD formula.Chronic kidney disease is defined as either kidney damageor GFR <60 mL/min/1.73 m2 for >3 months. CREATININE (test code=CREAT) 0.50 mg/dL 0.55-1.02 Note change in reference range due to change in reagent. BUN/CREATININE RATIO (test code=BUN/CREA) 36.0 10-20 TOTAL PROTEIN (test code=PROT) 6.7 gram/dL 6.4-8.2 ALBUMIN (test code=ALB) 2.5 g/dL 3.4-5.0 GLOBULIN (test code=GLOB) 4.2 gram/dL 2.7-4.2 ALBUMIN/GLOBULIN RATIO (test code=A/G) 0.6 0.75-1.50 CALCIUM (test code=CA) 8.2 mg/dL 8.5-10.1 BILIRUBIN TOTAL (test code=BILT) 0.60 mg/dL 0.0-1.0 SGOT/AST (test code=AST) 34 IUnit/L 15-37 SGPT/ALT (test code=ALT) 25 IUnit/L 12-78 ALKALINE PHOSPHATASE TOTAL (test code=ALKP) 63 IUnit/L 45-117 Note change in reference range due to change in reagent. [id number] 04:59:00* Test Item Value Reference Range Comments PHOSPHORUS (test code=PHOS) 1.8 mg/dL 2.5-4.9 [id number] 04:59:00* Test Item Value Reference Range Comments MAGNESIUM (test code=MAG) 1.8 mg/dL 1.8-2.4 CBC W/O [id number] 04:53:00* Test Item Value Reference Range Comments WHITE BLOOD CELL (test code=WBC) 12.0 K/mm3 4.5-12.5 RED BLOOD CELL (test code=RBC) 3.00 mill/mm3 3.7-5.2 HEMOGLOBIN (test code=HGB) 10.5 gram/dL 11.5-15.5 HEMATOCRIT (test code=HCT) 31.7 % 36.0-46.0 MEAN CELL VOLUME (test code=MCV) 105.7 fL 80-98 MEAN CELL HGB (test code=MCH) 35.0 picogram 27.0-33.0 MEAN CELL HGB CONCETRATION (test code=MCHC) 33.1 gram/dL 33.0-36.0 RED CELL DISTRIBUTION WIDTH (test code=RDW) 11.9 % 11.6-16.2 PLATELET COUNT (test code=PLT) 244 K/mm3 150-450 MEAN PLATELET VOLUME (test code=MPV) 10.1 fL 6.7-11.0 COMPREHENSIVE METABOLIC [id number] 04:49:00* Test Item Value Reference Range Comments SODIUM (test code=NA) 144 mmol/L 136-145 POTASSIUM (test code=K) 3.8 mmol/L 3.5-5.1 CHLORIDE (test code=CL) 113.0 mmol/L 98-107 CARBON DIOXIDE (test code=CO2) mmol/L 21-32 ANION GAP (test code=GAP) 10-20 GLUCOSE (test code=GLU) mg/dL 74-106 BLOOD UREA NITROGEN (test code=BUN) mg/dL 7-18 GLOMERULAR FILTRATION RATE (test code=GFR) mL/min >=60 CREATININE (test code=CREAT) mg/dL 0.55-1.02 BUN/CREATININE RATIO (test code=BUN/CREA) 10-20 TOTAL PROTEIN (test code=PROT) gram/dL 6.4-8.2 ALBUMIN (test code=ALB) g/dL 3.4-5.0 GLOBULIN (test code=GLOB) gram/dL 2.7-4.2 ALBUMIN/GLOBULIN RATIO (test code=A/G) 0.75-1.50 CALCIUM (test code=CA) mg/dL 8.5-10.1 BILIRUBIN TOTAL (test code=BILT) mg/dL 0.0-1.0 SGOT/AST (test code=AST) IUnit/L 15-37 SGPT/ALT (test code=ALT) IUnit/L 12-78 ALKALINE PHOSPHATASE TOTAL (test code=ALKP) IUnit/L 45-117 [id number] 04:49:00* Test Item Value Reference Range Comments PHOSPHORUS (test code=PHOS) mg/dL 2.5-4.9 [id number] 04:49:00* Test Item Value Reference Range Comments MAGNESIUM (test code=MAG) mg/dL 1.8-2.4 [id number] 01:45:00* Test Item Value Reference Range Comments GLUBED (test code=GLUBED) 188 mg/dL 74-106 Performed by certified chief operator hydroformer at [facility] [id number] 20:51:00* Test Item Value Reference Range Comments GLUBED (test code=GLUBED) 210 mg/dL 74-106 Performed by certified chief operator hydroformer at [facility] [id number] 16:54:00* Test Item Value Reference Range Comments GLUBED (test code=GLUBED) 213 mg/dL 74-106 Performed by certified chief operator hydroformer at [facility] [id number] 11:25:00* Test Item Value Reference Range Comments GLUBED (test code=GLUBED) 287 mg/dL 74-106 Performed by certified chief operator hydroformer at [facility] - XR CHEST 1 [id number] 08:15:00 FAX: Byron Woodard MD [phone] [place]: B St: ADM FAX: John Lombardo [phone] FAX: Josephine Ha [facility] [phone] Name: SABRINA ZAMARRIPA [facility] : 1950 Age/S: 68/F [address] Unit #: [id number] Loc: V.S11 [place] [address] Phys: Byron Barron MD Acct: [id number] Dis Date: Status: ADM IN ONE #: [phone] Exam Date: 06/28/2018409 FAX #: [phone] Reason: chf EXAMS: CPT CODE: [id number] XR CHEST 1 V 38563 TECHNIQUE - XR CHEST 1 V . COMPARISON: Chest x-ray 06/27/2018 HIS TORY: 68 years Female chf FINDINGS: Moderate congestion. This is more prominent since old study 2018. No pneumothorax. Cardiac selected is enlarged. Lungs are hyp oinflated. IMPRESSION: Moderate congestion. Th is is more prominent since old study 06/27/2018. Electronically Alisson d by Josephine Luciano M.D. on 06/28/2018 at 0815 Reported and signed by: Josephine Luciano M.D. CC: Byron Barron MD; John Victoria MD; Josephine Ha Technologist: RT ALYCE(R) Trnscrd Date/Time/By: 06/28/2018 (814) : By: [email or web address] Orig Print D/T: S: 06/28/2018 (817) PAGE 1 Signed Report BASIC METABOLIC PANEL 2018-06-28 07:15:00* Test Item Value Reference Range Comments SODIUM (test code=NA) 147 mmol/L 136-145 POTASSIUM (test code=K) 4.0 mmol/L 3.5-5.1 CHLORIDE (test code=CL) 119.0 mmol/L 98-107 CARBON DIOXIDE (test code=CO2) 22.0 mmol/L 21-32 ANION GAP (test code=GAP) 10.0 10-20 GLUCOSE (test code=GLU) 178 mg/dL 74-106 BLOOD UREA NITROGEN (test code=BUN) 23 mg/dL 7-18 RESULT VERIFIED BY REPEAT ANALYSIS GLOMERULAR FILTRATION RATE (test code=GFR) > 60 mL/min >=60 Estimated GFR by using Modified MDRD formula.Chronic kidney disease is defined as either kidney damageor GFR <60 mL/min/1.73 m2 for >3 months. CREATININE (test code=CREAT) 0.50 mg/dL 0.55-1.02 Note change in reference range due to change in reagent. BUN/CREATININE RATIO (test code=BUN/CREA) 46.0 10-20 CALCIUM (test code=CA) 7.7 mg/dL 8.5-10.1 BASIC METABOLIC [id number] 07:08:00* Test Item Value Reference Range Comments SODIUM (test code=NA) 147 mmol/L 136-145 POTASSIUM (test code=K) 4.0 mmol/L 3.5-5.1 CHLORIDE (test code=CL) 119.0 mmol/L 98-107 CARBON DIOXIDE (test code=CO2) mmol/L 21-32 ANION GAP (test code=GAP) 10-20 GLUCOSE (test code=GLU) mg/dL 74-106 BLOOD UREA NITROGEN (test code=BUN) mg/dL 7-18 GLOMERULAR FILTRATION RATE (test code=GFR) mL/min >=60 CREATININE (test code=CREAT) mg/dL 0.55-1.02 BUN/CREATININE RATIO (test code=BUN/CREA) 10-20 CALCIUM (test code=CA) mg/dL 8.5-10.1 CBC W/O [id number] 07:02:00* Test Item Value Reference Range Comments WHITE BLOOD CELL (test code=WBC) 17.6 K/mm3 4.5-12.5 RED BLOOD CELL (test code=RBC) 2.88 mill/mm3 3.7-5.2 HEMOGLOBIN (test code=HGB) 10.0 gram/dL 11.5-15.5 HEMATOCRIT (test code=HCT) 30.8 % 36.0-46.0 MEAN CELL VOLUME (test code=MCV) 106.9 fL 80-98 MEAN CELL HGB (test code=MCH) 34.7 picogram 27.0-33.0 MEAN CELL HGB CONCETRATION (test code=MCHC) 32.5 gram/dL 33.0-36.0 RED CELL DISTRIBUTION WIDTH (test code=RDW) 12.2 % 11.6-16.2 PLATELET COUNT (test code=PLT) 235 K/mm3 150-450 MEAN PLATELET VOLUME (test code=MPV) 10.3 fL 6.7-11.0 [id number] 05:54:00* Test Item Value Reference Range Comments GLUBED (test code=GLUBED) 169 mg/dL 74-106 Performed by certified chief operator hydroformer at [facility] [id number] 01:56:00* Test Item Value Reference Range Comments GLUBED (test code=GLUBED) 217 mg/dL 74-106 Performed by certified chief operator hydroformer at [facility] [id number] 00:04:00* Test Item Value Reference Range Comments GLUBED (test code=GLUBED) 301 mg/dL 74-106 Performed by certified chief operator hydroformer at [facility] [id number] 18:14:00* Test Item Value Reference Range Comments GLUBED (test code=GLUBED) 408 mg/dL 74-106 Performed by certified chief operator hydroformer at [facility] [id number] 16:13:00* Test Item Value Reference Range Comments GLUBED (test code=GLUBED) 311 mg/dL 74-106 Performed by certified chief operator hydroformer at [facility] BASIC METABOLIC [id number] 07:22:00* Test Item Value Reference Range Comments SODIUM (test code=NA) 145 mmol/L 136-145 POTASSIUM (test code=K) 3.9 mmol/L 3.5-5.1 CHLORIDE (test code=CL) 117.0 mmol/L 98-107 CARBON DIOXIDE (test code=CO2) 20.0 mmol/L 21-32 ANION GAP (test code=GAP) 11.9 10-20 GLUCOSE (test code=GLU) 321 mg/dL 74-106 BLOOD UREA NITROGEN (test code=BUN) 31 mg/dL 7-18 GLOMERULAR FILTRATION RATE (test code=GFR) > 60 mL/min >=60 Estimated GFR by using Modified MDRD formula.Chronic kidney disease is defined as either kidney damageor GFR <60 mL/min/1.73 m2 for >3 months. CREATININE (test code=CREAT) 0.80 mg/dL 0.55-1.02 Note change in reference range due to change in reagent. BUN/CREATININE RATIO (test code=BUN/CREA) 38.8 10-20 CALCIUM (test code=CA) 7.3 mg/dL 8.5-10.1 [id number] 07:22:00* Test Item Value Reference Range Comments PHOSPHORUS (test code=PHOS) 2.0 mg/dL 2.5-4.9 [id number] 07:22:00* Test Item Value Reference Range Comments MAGNESIUM (test code=MAG) 2.1 mg/dL 1.8-2.4 CALCIUM [id number] 07:22:00* Test Item Value Reference Range Comments CALCIUM IONIZED (test code=JEVON) 1.15 mmol/L 1.12-1.32 - XR CHEST 1 [id number] 07:17:00 FAX: Byron Woodard MD [phone] [place]: [address]: ADM FAX: John Lombardo [phone] FAX: Josephine Ha [phone] Name: SABRINA ZAMARRIPA [facility] : 1950 Age/S: 68/F [address] [facility] Unit #: [id number] Loc: [address] [address] Phys: Byron Barron MD Acct: [id number] Dis Date: Status: ADM IN ONE #: [phone] Exam Date: 06/27/2018 0435 FAX #: [phone] Reason: screening EXAMS: CPT CODE: [id number] XR CHEST 1 V [id number] REASON FOR EXAM: screening Exam Order Date: 06/27/2018 5:00 AM Ordering M.D.: Byron Barron MD PROCEDURE: - XR CHEST 1 V COMPARISON: AP chest x-ray June 24, 2018 FINDINGS: ET tube and OG tube are appropriately positioned. There is w orsening opacification of the bilateral lung bases and the left hemidiaphr agm is no longer clearly visualized. These opacities may reflect any combi nation of layering effusions, atelectatic changes, and consolidations. The cardiomediastinal silhouette appears slightly prominent however this may be due to technique and patient positioning. Degener ative changes of the spine and other musculoskeletal findings are unchange d. IMPRESSION: Worsening opacification of the bilateral lung ba ses may reflect any combination of layering effusions, atelectatic garcias es, and consolidations. at 0717 Reported and signed by: Raphael Baptiste MD CC: Byron Barron MD; John Santillan MD; Josephine Ha Te chnologist: LISA SHERIFF, RT(R); Alison SantosMiguel Trnscrd Date/ Time/By: 06/27/2018 (0751) : By: [email or web address] [facility] Print D/T: S: 06/28/19 (4717) PAGE 1 Signed Report BASIC METABOLIC [id number] 07:15:00* Test Item Value Reference Range Comments SODIUM (test code=NA) 145 mmol/L 136-145 POTASSIUM (test code=K) 3.9 mmol/L 3.5-5.1 CHLORIDE (test code=CL) 117.0 mmol/L 98-107 CARBON DIOXIDE (test code=CO2) 20.0 mmol/L 21-32 ANION GAP (test code=GAP) 11.9 10-20 GLUCOSE (test code=GLU) 321 mg/dL 74-106 BLOOD UREA NITROGEN (test code=BUN) 31 mg/dL 7-18 GLOMERULAR FILTRATION RATE (test code=GFR) > 60 mL/min >=60 Estimated GFR by using Modified MDRD formula.Chronic kidney disease is defined as either kidney damageor GFR <60 mL/min/1.73 m2 for >3 months. CREATININE (test code=CREAT) 0.80 mg/dL 0.55-1.02 Note change in reference range due to change in reagent. BUN/CREATININE RATIO (test code=BUN/CREA) 38.8 10-20 CALCIUM (test code=CA) 7.3 mg/dL 8.5-10.1 [id number] 07:15:00* Test Item Value Reference Range Comments PHOSPHORUS (test code=PHOS) 2.0 mg/dL 2.5-4.9 [id number] 07:15:00* Test Item Value Reference Range Comments MAGNESIUM (test code=MAG) 2.1 mg/dL 1.8-2.4 CALCIUM [id number] 07:15:00* Test Item Value Reference Range Comments CALCIUM IONIZED (test code=JEVON) mmol/L 1.12-1.32 [id number] 07:07:00* Test Item Value Reference Range Comments GLUBED (test code=GLUBED) 343 mg/dL 74-106 Performed by certified chief operator hydroformer at [facility] [id number] 07:07:00* Test Item Value Reference Range Comments GLUBED (test code=GLUBED) 295 mg/dL 74-106 Performed by certified chief operator hydroformer at [facility] CBC W/AUTO [id number] 06:47:00* Test Item Value Reference Range Comments WHITE BLOOD CELL (test code=WBC) 16.7 K/mm3 4.5-12.5 RED BLOOD CELL (test code=RBC) 2.66 mill/mm3 3.7-5.2 HEMOGLOBIN (test code=HGB) 9.5 gram/dL 11.5-15.5 HEMATOCRIT (test code=HCT) 28.7 % 36.0-46.0 MEAN CELL VOLUME (test code=MCV) 107.9 fL 80-98 MEAN CELL HGB (test code=MCH) 35.7 picogram 27.0-33.0 MEAN CELL HGB CONCETRATION (test code=MCHC) 33.1 gram/dL 33.0-36.0 RED CELL DISTRIBUTION WIDTH (test code=RDW) 12.2 % 11.6-16.2 RED CELL DISTRIBUTION WIDTH SD (test code=RDW-SD) 47.9 fL 37.0-51.0 PLATELET COUNT (test code=PLT) 233 K/mm3 150-450 MEAN PLATELET VOLUME (test code=MPV) 10.4 fL 6.7-11.0 NEUTROPHIL % (test code=NT%) 91.9 % 39.0-69.0 IMMATURE GRANULOCYTE % (test code=IG%) 0.5 % 0.0-5.0 LYMPHOCYTE % (test code=LY%) 4.1 % 25.0-55.0 MONOCYTE % (test code=MO%) 3.4 % 0.0-10.0 EOSINOPHIL % (test code=EO%) 0.0 % 0.0-5.0 BASOPHIL % (test code=BA%) 0.1 % 0.0-1.0 NUCLEATED RBC % (test code=NRBC%) 0.0 % 0-0 NEUTROPHIL # (test code=NT#) 15.39 K/mm3 1.8-7.7 IMMATURE GRANULOCYTE # (test code=IG#) 0.09 x10 3/uL 0-0.03 LYMPHOCYTE # (test code=LY#) 0.68 K/mm3 1.0-5.0 MONOCYTE # (test code=MO#) 0.57 K/mm3 0-0.8 EOSINOPHIL # (test code=EO#) 0.00 K/mm3 0.0-0.5 BASOPHIL # (test code=BA#) 0.01 K/mm3 0.0-0.2 NUCLEATED RBC # (test code=NRBC#) 0.00 K/mm3 0.0-0.1 MANUAL DIFF REQUIRED (test code=MDIFF) NO [id number] 20:35:00* Test Item Value Reference Range Comments GLUBED (test code=GLUBED) 251 mg/dL 74-106 Performed by certified chief operator hydroformer at [facility] [id number] 17:40:00* Test Item Value Reference Range Comments GLUBED (test code=GLUBED) 215 mg/dL 74-106 Performed by certified chief operator hydroformer at [facility] [id number] 12:22:00* Test Item Value Reference Range Comments GLUBED (test code=GLUBED) 220 mg/dL 74-106 Performed by certified chief operator hydroformer at [facility] BASIC METABOLIC [id number] 06:53:00* Test Item Value Reference Range Comments SODIUM (test code=NA) 146 mmol/L 136-145 POTASSIUM (test code=K) 4.0 mmol/L 3.5-5.1 CHLORIDE (test code=CL) 114.0 mmol/L 98-107 CARBON DIOXIDE (test code=CO2) 24.0 mmol/L 21-32 ANION GAP (test code=GAP) 12.0 10-20 GLUCOSE (test code=GLU) 209 mg/dL 74-106 BLOOD UREA NITROGEN (test code=BUN) 19 mg/dL 7-18 GLOMERULAR FILTRATION RATE (test code=GFR) > 60 mL/min >=60 Estimated GFR by using Modified MDRD formula.Chronic kidney disease is defined as either kidney damageor GFR <60 mL/min/1.73 m2 for >3 months. CREATININE (test code=CREAT) 0.70 mg/dL 0.55-1.02 Note change in reference range due to change in reagent. BUN/CREATININE RATIO (test code=BUN/CREA) 27.1 10-20 CALCIUM (test code=CA) 7.7 mg/dL 8.5-10.1 [id number] 06:53:00* Test Item Value Reference Range Comments PHOSPHORUS (test code=PHOS) 2.9 mg/dL 2.5-4.9 [id number] 06:53:00* Test Item Value Reference Range Comments MAGNESIUM (test code=MAG) 2.0 mg/dL 1.8-2.4 VITAMIN [id number] 06:53:00* Test Item Value Reference Range Comments VITAMIN B12 (test code=VITB12) 322 pg/mL 193-986 THYROID PROFILE [id number] 06:53:00* Test Item Value Reference Range Comments T3 UPTAKE (test code=T3UP) 37.0 % 30.0-40.0 T4 (THYROXINE) (test code=T4) 9.1 ug/dL 4.5-13.9 T7 (FREE THYROXINE INDEX) (test code=T7) 3.36 FTI 1.3-5.1 THYROID STIMULATING HORMONE (test code=TSH) 0.395 uIU/mL 0.36-3.74 TSH REFERENCE RANGES: EUTHYROID: 0.35 - 4.3 mIU/mL HYPO : > 5.5 mIU/mL HYPER : < 0.35 mIU/mL [id number] 06:21:00* Test Item Value Reference Range Comments GLYCOSYLATED HEMOGLOBIN (HA1C) (test code=GLYHGB) 7.5 % HbA1 4.8-6.0 ESTIMATED AVERAGE GLUCOSE (test code=EAG) 169 MG/DL BASIC METABOLIC [id number] 06:09:00* Test Item Value Reference Range Comments SODIUM (test code=NA) 146 mmol/L 136-145 POTASSIUM (test code=K) 4.0 mmol/L 3.5-5.1 CHLORIDE (test code=CL) 114.0 mmol/L 98-107 CARBON DIOXIDE (test code=CO2) mmol/L 21-32 ANION GAP (test code=GAP) 10-20 GLUCOSE (test code=GLU) mg/dL 74-106 BLOOD UREA NITROGEN (test code=BUN) mg/dL 7-18 GLOMERULAR FILTRATION RATE (test code=GFR) mL/min >=60 CREATININE (test code=CREAT) mg/dL 0.55-1.02 BUN/CREATININE RATIO (test code=BUN/CREA) 10-20 CALCIUM (test code=CA) mg/dL 8.5-10.1 [id number] 06:09:00* Test Item Value Reference Range Comments PHOSPHORUS (test code=PHOS) mg/dL 2.5-4.9 [id number] 06:09:00* Test Item Value Reference Range Comments MAGNESIUM (test code=MAG) mg/dL 1.8-2.4 VITAMIN [id number] 06:09:00* Test Item Value Reference Range Comments VITAMIN B12 (test code=VITB12) pg/mL 193-986 THYROID PROFILE [id number] 06:09:00* Test Item Value Reference Range Comments T3 UPTAKE (test code=T3UP) % 30.0-40.0 T4 (THYROXINE) (test code=T4) ug/dL 4.5-13.9 T7 (FREE THYROXINE INDEX) (test code=T7) FTI 1.3-5.1 THYROID STIMULATING HORMONE (test code=TSH) uIU/mL 0.36-3.74 CBC W/AUTO [id number] 06:03:00* Test Item Value Reference Range Comments WHITE BLOOD CELL (test code=WBC) 21.4 K/mm3 4.5-12.5 RED BLOOD CELL (test code=RBC) 2.88 mill/mm3 3.7-5.2 HEMOGLOBIN (test code=HGB) 10.2 gram/dL 11.5-15.5 HEMATOCRIT (test code=HCT) 31.1 % 36.0-46.0 MEAN CELL VOLUME (test code=MCV) 108.0 fL 80-98 MEAN CELL HGB (test code=MCH) 35.4 picogram 27.0-33.0 MEAN CELL HGB CONCETRATION (test code=MCHC) 32.8 gram/dL 33.0-36.0 RED CELL DISTRIBUTION WIDTH (test code=RDW) 12.0 % 11.6-16.2 RED CELL DISTRIBUTION WIDTH SD (test code=RDW-SD) 48.6 fL 37.0-51.0 PLATELET COUNT (test code=PLT) 266 K/mm3 150-450 MEAN PLATELET VOLUME (test code=MPV) 9.6 fL 6.7-11.0 NEUTROPHIL % (test code=NT%) 91.7 % 39.0-69.0 IMMATURE GRANULOCYTE % (test code=IG%) 0.7 % 0.0-5.0 LYMPHOCYTE % (test code=LY%) 3.6 % 25.0-55.0 MONOCYTE % (test code=MO%) 3.9 % 0.0-10.0 EOSINOPHIL % (test code=EO%) 0.0 % 0.0-5.0 BASOPHIL % (test code=BA%) 0.1 % 0.0-1.0 NUCLEATED RBC % (test code=NRBC%) 0.0 % 0-0 NEUTROPHIL # (test code=NT#) 19.62 K/mm3 1.8-7.7 IMMATURE GRANULOCYTE # (test code=IG#) 0.16 x10 3/uL 0-0.03 LYMPHOCYTE # (test code=LY#) 0.78 K/mm3 1.0-5.0 MONOCYTE # (test code=MO#) 0.84 K/mm3 0-0.8 EOSINOPHIL # (test code=EO#) 0.00 K/mm3 0.0-0.5 BASOPHIL # (test code=BA#) 0.02 K/mm3 0.0-0.2 NUCLEATED RBC # (test code=NRBC#) 0.00 K/mm3 0.0-0.1 [id number] 05:46:00* Test Item Value Reference Range Comments GLUBED (test code=GLUBED) 166 mg/dL 74-106 Performed by certified chief operator hydroformer at [facility] - CT HEAD/BRAIN W/O [id number] 04:28:00 Name: SABRINA ZAMARRIPA [facility] : 1950 Age/S: 68 / F [address] [facility] Unit #: [id number] Loc: [facility] [address] Phys: Emanuel Lam MD Acct: [id number] Dis Date: Status: ADM IN PHONE #: [phone] Exam Date: 06/26/2018 0410 FAX #: [phone] Reason: f/u hemorrhage EXAMS: CPT CODE: [id number] CT HEAD/BRAIN W/O CONT [id number] EXAM: CT Head without contrast Location code:J9 HISTORY: Postoperative COMPARISON: CT head 06/25/2018 TECHNIQUE: Multiple transaxial images of the brain were obtained without intravenous contrast using 5mm slices. FINDINGS: Postsurgical changes from left parietal craniotomy are noted. Stable large left temporal lobe hemorrhage.. Interval decrease in pneumocephalus noted in the subdural space anterior to the frontal lobes and in the middle cranial fossa. Interval decrease in acute hemorrhage is noted in the left subdural space adjacent to the temporal lobe at the surgical bed. Stable 7 mm of rightward midline shift is noted. Stable mass effect on the left lateral ventricle is noted. Stable mass effect on the midbrain is noted. Brain parenchymal volume and ventricular caliber are within normal limits. Kaur-white differentiation is maintained. There is no evidence for acute major vessel infarct. P aranasal sinuses, mastoid air cells and visualized orbital contents are wi thin normal limits. Osseous structures are within normal limits. IMPRESSION: No significant interval change. Stable large left temporal lobe hemorrhage with postsurgical changes from left craniotomy and evacuation and rightward midline shift. at 0428 Reported and signed by: Aleksander Guerra M.D. CC: Emanuel Calhoun MD; John Santillan MD; Josephine Hah Technologist:RT RAKESH CTDI: DLP: Trnscb Date/Time: 06/26/2018 (0428) [email or web address] Orig Print D/T: S: 06/26/2018 (0431) PAGE 1 Signed Report [id number] 00:41:00* Test Item Value Reference Range Comments GLUBED (test code=GLUBED) 271 mg/dL 74-106 Performed by certified chief operator hydroformer at [facility] [id number] 22:10:00* Test Item Value Reference Range Comments GLUBED (test code=GLUBED) 298 mg/dL 74-106 Performed by certified chief operator hydroformer at [facility] [id number] 19:11:00* Test Item Value Reference Range Comments GLUBED (test code=GLUBED) 280 mg/dL 74-106 Performed by certified chief operator hydroformer at [facility] BASIC METABOLIC [id number] 05:51:00* Test Item Value Reference Range Comments SODIUM (test code=NA) 142 mmol/L 136-145 POTASSIUM (test code=K) 3.4 mmol/L 3.5-5.1 CHLORIDE (test code=CL) 108.0 mmol/L 98-107 CARBON DIOXIDE (test code=CO2) 24.0 mmol/L 21-32 ANION GAP (test code=GAP) 13.4 10-20 GLUCOSE (test code=GLU) 196 mg/dL 74-106 BLOOD UREA NITROGEN (test code=BUN) 12 mg/dL 7-18 GLOMERULAR FILTRATION RATE (test code=GFR) > 60 mL/min >=60 Estimated GFR by using Modified MDRD formula.Chronic kidney disease is defined as either kidney damageor GFR <60 mL/min/1.73 m2 for >3 months. CREATININE (test code=CREAT) 0.80 mg/dL 0.55-1.02 Note change in reference range due to change in reagent. BUN/CREATININE RATIO (test code=BUN/CREA) 15.0 10-20 CALCIUM (test code=CA) 8.1 mg/dL 8.5-10.1 [id number] 05:51:00* Test Item Value Reference Range Comments PHOSPHORUS (test code=PHOS) 1.3 mg/dL 2.5-4.9 [id number] 05:51:00* Test Item Value Reference Range Comments MAGNESIUM (test code=MAG) 1.3 mg/dL 1.8-2.4 CALCIUM [id number] 05:51:00* Test Item Value Reference Range Comments CALCIUM IONIZED (test code=JEVON) 1.19 mmol/L 1.12-1.32 BASIC METABOLIC [id number] 05:49:00* Test Item Value Reference Range Comments SODIUM (test code=NA) 142 mmol/L 136-145 POTASSIUM (test code=K) 3.4 mmol/L 3.5-5.1 CHLORIDE (test code=CL) 108.0 mmol/L 98-107 CARBON DIOXIDE (test code=CO2) mmol/L 21-32 ANION GAP (test code=GAP) 10-20 GLUCOSE (test code=GLU) mg/dL 74-106 BLOOD UREA NITROGEN (test code=BUN) mg/dL 7-18 GLOMERULAR FILTRATION RATE (test code=GFR) mL/min >=60 CREATININE (test code=CREAT) mg/dL 0.55-1.02 BUN/CREATININE RATIO (test code=BUN/CREA) 10-20 CALCIUM (test code=CA) mg/dL 8.5-10.1 [id number] 05:49:00* Test Item Value Reference Range Comments PHOSPHORUS (test code=PHOS) mg/dL 2.5-4.9 [id number] 05:49:00* Test Item Value Reference Range Comments MAGNESIUM (test code=MAG) mg/dL 1.8-2.4 CALCIUM [id number] 05:49:00* Test Item Value Reference Range Comments CALCIUM IONIZED (test code=JEVON) 1.19 mmol/L 1.12-1.32 BASIC METABOLIC [id number] 05:46:00* Test Item Value Reference Range Comments SODIUM (test code=NA) 142 mmol/L 136-145 POTASSIUM (test code=K) 3.4 mmol/L 3.5-5.1 CHLORIDE (test code=CL) 108.0 mmol/L 98-107 CARBON DIOXIDE (test code=CO2) mmol/L 21-32 ANION GAP (test code=GAP) 10-20 GLUCOSE (test code=GLU) mg/dL 74-106 BLOOD UREA NITROGEN (test code=BUN) mg/dL 7-18 GLOMERULAR FILTRATION RATE (test code=GFR) mL/min >=60 CREATININE (test code=CREAT) mg/dL 0.55-1.02 BUN/CREATININE RATIO (test code=BUN/CREA) 10-20 CALCIUM (test code=CA) mg/dL 8.5-10.1 [id number] 05:46:00* Test Item Value Reference Range Comments PHOSPHORUS (test code=PHOS) mg/dL 2.5-4.9 [id number] 05:46:00* Test Item Value Reference Range Comments MAGNESIUM (test code=MAG) mg/dL 1.8-2.4 CALCIUM [id number] 05:46:00* Test Item Value Reference Range Comments CALCIUM IONIZED (test code=JEVON) mmol/L 1.12-1.32 CBC W/AUTO [id number] 05:31:00* Test Item Value Reference Range Comments WHITE BLOOD CELL (test code=WBC) 12.3 K/mm3 4.5-12.5 RED BLOOD CELL (test code=RBC) 3.08 mill/mm3 3.7-5.2 HEMOGLOBIN (test code=HGB) 10.8 gram/dL 11.5-15.5 HEMATOCRIT (test code=HCT) 32.2 % 36.0-46.0 MEAN CELL VOLUME (test code=MCV) 104.5 fL 80-98 MEAN CELL HGB (test code=MCH) 35.1 picogram 27.0-33.0 MEAN CELL HGB CONCETRATION (test code=MCHC) 33.5 gram/dL 33.0-36.0 RED CELL DISTRIBUTION WIDTH (test code=RDW) 11.8 % 11.6-16.2 RED CELL DISTRIBUTION WIDTH SD (test code=RDW-SD) 45.7 fL 37.0-51.0 PLATELET COUNT (test code=PLT) 246 K/mm3 150-450 MEAN PLATELET VOLUME (test code=MPV) 9.5 fL 6.7-11.0 NEUTROPHIL % (test code=NT%) 90.5 % 39.0-69.0 IMMATURE GRANULOCYTE % (test code=IG%) 0.4 % 0.0-5.0 LYMPHOCYTE % (test code=LY%) 6.9 % 25.0-55.0 MONOCYTE % (test code=MO%) 2.0 % 0.0-10.0 EOSINOPHIL % (test code=EO%) 0.0 % 0.0-5.0 BASOPHIL % (test code=BA%) 0.2 % 0.0-1.0 NUCLEATED RBC % (test code=NRBC%) 0.0 % 0-0 NEUTROPHIL # (test code=NT#) 11.12 K/mm3 1.8-7.7 IMMATURE GRANULOCYTE # (test code=IG#) 0.05 x10 3/uL 0-0.03 LYMPHOCYTE # (test code=LY#) 0.85 K/mm3 1.0-5.0 MONOCYTE # (test code=MO#) 0.25 K/mm3 0-0.8 EOSINOPHIL # (test code=EO#) 0.00 K/mm3 0.0-0.5 BASOPHIL # (test code=BA#) 0.02 K/mm3 0.0-0.2 NUCLEATED RBC # (test code=NRBC#) 0.00 K/mm3 0.0-0.1 [id number] 05:14:00* Test Item Value Reference Range Comments GLUBED (test code=GLUBED) 160 mg/dL 74-106 Performed by certified chief operator hydroformer at [facility] ARTERIAL BLOOD [id number] 04:54:00* Test Item Value Reference Range Comments ARTERIAL BLOOD GAS PH (test code=PHA) 7.45 7.35-7.45 ARTERIAL BLOOD GAS PCO2 (test code=PCO2A) 31.7 mm Hg 35-45 ARTERIAL BLOOD GAS PO2 (test code=PO2A) 189.2 mmHg 80-100 BICARBONATE TOTAL HCO3 (test code=HCO3) 21.3 mmol/L 23.0-27.0 BASE EXCESS (test code=SUSANA) -2.0 mmol/L -3.0-5.0 ABG O2 SATURATION (test code=SATA) 98.2 % 90.0-98.0 ABG TYPE (test code=TYPEA) Arterial FIO2 (test code=FIO2A) 50.0 ABG L/M (test code=L/M) 50.00 L/MIN ABG VENT MODE (test code=MODEA) Assist Control ABG VENT RESP RATE (test code=RRA) 14.0 per min ABG TIDAL VOLUME (test code=TVA) 450.0 mL ABG PEEP (test code=PEEPA) 5.0 cmH2O ABG TEMPERATURE (test code=TEMPA) 35.2 Celsius ABG SITE (test code=SITEA) ARTERIAL LINE MODIFIED ALLENS (test code=MODALL) Unable CHECK PERFORMED SODIUM (test code=NA/ABG) 138.5 mEq/L 135-148 POTASSIUM (test code=K/ABG) 3.3 mEq/L 3.5-4.5 CHLORIDE (test code=CL/ABG) 107 mEq/L 98-106 GLUCOSE (test code=GLU/ABG) 193 mg/dL 74-99 HEMATOCRIT (test code=HCT/ABG) 34 % 35-47 IONIZED CALCIUM (test code=CAIABG) 1.07 mmol/L 1.1-1.37 TOTAL HGB (test code=THB) 11.5 gram/dL 11.5-15.5 HGB O2 SAT (test code=HBOSAT) 97.9 % 94.00-98.00 CARBOXYHEMOGLOBIN (test code=HOHGBT) 0.3 %totalHg 0.5-1.5 Results called to and read back by Damian 04:50 - 06/25/2018; by Quinten Peterson, LUIS METHEMOGLOBIN (test code=METHGB) 0.0 % 0.0-1.50 O2 CONTENT (test code=O2CT) 16.2 % vol 18.0-22.0 A-A GRADIENT (test code=AAGRADE) 145.9 mm Hg - CT HEAD/BRAIN W/O [id number] 03:16:00 [facility] 1950 Age/S: 68 / F [address] [facility] Unit #: [id number] Loc: [place] [address] Phys: Emanuel Lam MD Acct: [id number] Dis Date: Status: ADM IN PHONE #: [phone] Exam Date: 06/25/2018 0240 FAX #: [phone] Reason: POST OP EXAMS: CPT CODE: [id number] CT HEAD/BRAIN W/O CONT [id number] EXAM: CT Head without contrast Location code:J9 HISTORY: Postoperative COMPARISON: CT head 06/24/2018, 2331 TECHNIQUE: Multiple transaxial images of the brain were obtained without intravenous contrast using 5mm slices. FINDINGS: Postsurgical changes from left parietal craniotomy are noted. Interval decrease in left temporal lobe hemorrhage. The left temporal hemorrhage measures 3.2 x 6.0 x 3.0 cm. Previously, the left temporal lobe hemorrhage measures 8.0 x 5.0 x 4.6 cm. Pneumocephalus is noted in the subdural space anterior to the frontal lobes and in the middle cranial fossa. Acute hemorrhage is noted in the left subdural space adjacent to the temporal lobe at the surgical bed. 7 mm of rightward midline shift is noted. Previously the midline shift measures 12 mm. Decreased mass effect on the left lateral ventricle is noted. Stable mass effect on the midbrain is noted. Brain parenchymal volume and ventricular caliber are within normal limits. Kaur-white differentiation is maintained. There is no evidence for acute major vessel infarct. Paranasal sinuses, mastoid air cells and visualized orbital contents are within normal limits. Osseous structures are within normal limits. IMPRESSION: Interval left parietal craniotomy and evacuation of left temporal lobe hemorrhage with expected postoperative changes. Interval decrease in left temporal lobe parenchymal hemorrhage and associated rightward midline shift. at 0316 Reported and signed by: Aleksander Guerra M.D. CC: Emanuel Lam MD; John Santillan MD; Josephine Ha Technologist:JOSEPHINE ARANDA CT CTDI: DLP: Trnscb Date/Time: 06/25/2018 (315) [email or web address] Orig Print D/T: S: 06/25/2018 (318) PAGE 1 Signed Report URINALYSIS [id number] 01:30:00* Test Item Value Reference Range Comments UA COLOR (test code=COLU) COLORLESS YELLOW UA APPEARANCE (test code=APPU) CLEAR CLEAR UA GLUCOSE DIPSTICK (test code=DGLUU) NEGATIVE mg/dL NEGATIVE UA BILIRUBIN DIPSTICK (test code=BILU) NEGATIVE mg/dL NEGATIVE UA KETONE DIPSTICK (test code=KETU) NEGATIVE mg/dL NEGATIVE UA SPECIFIC GRAVITY (test code=SGU) 1.007 1.001-1.035 UA BLOOD DIPSTICK (test code=AZAEL) Negative mg/dL NEGATIVE UA PH DIPSTICK (test code=MARK) 7.5 5.0-8.0 UA PROTEIN DIPSTICK (test code=PROU) NEGATIVE mg/dL NEGATIVE UA UROBILINIOGEN DIPSTICK (test code=URO) Normal mg/dL NEGATIVE UA NITRITE DIPSTICK (test code=ROXANN) NEGATIVE NEGATIVE UA LEUKOCYTE ESTERASE W REFLEX (test code=LEUUR) NEGATIVE Gloria/uL NEGATIVE UA WBC (test code=WBCU) 0-5 per HPF 0-5 UA RBC (test code=RBCU) 0-2 #/HPF 0-5 UA EPITHELIAL CELLS (test code=EPIU) FEW per HPF FEW UA BACTERIA (test code=BACU) FEW #/HPF NONE UA MUCUS (test code=MUCU) FEW #/LPF FEW Urine Source? Clean CatchDRUGS OF ABUSE SCREEN [id number] 01:30:00* Test Item Value Reference Range Comments URN COCAINE (test code=COCAURN) NEGATIVE <300 ng/mL URN CANNABINOIDS (test code=CANNABURN) NEGATIVE <50 ng/mL URN AMPHETAMINE (test code=AMPHETURN) NEGATIVE <1000 ng/mL URN BARBITURATE (test code=BARBITURN) NEGATIVE <200 ng/mL URN BENZODIAZEPINE (test code=BENZOURN) NEGATIVE <200 ng/mL URN OPIATES (test code=OPIATURN) NEGATIVE <300 ng/mL URN PHENCYCLIDINE (PCP) (test code=PHENCURN) NEGATIVE <25 ng/mL URN METHADONE (test code=METHAURN) NEGATIVE <300 ng/mL Urine Source? Clean Catch- CTA [id number] 01:22:00 Name: SABRINA ZAMARRIPA [facility] : 1950 Age/S: 68 / F [address] [facility] Unit #: [id number] Loc: [place] [address] Phys: Emanuel Lam MD Acct: [id number] Dis Date: Status: ADM IN PHONE #: [phone] Exam Date: 06/25/2018 0022 FAX #: [phone] Reason: r/o aneurysm EXAMS: CPT CODE: [id number] CTA HEAD 14779 HISTORY: r/o aneurysm TECHNIQUE: Axial CT images were obtained from the skull base to the vertex after intravenous contrast utilizing CTA protocol. Axial, coronal and sagittal maximum intensity projection images were created from the data set. One or more of the following dose reduction techniques were used: Automated exposure control, adjustment of the mA and/or kV according to patient size, and/or iterative reconstruction. COMPARISON: None FINDINGS: The petrous, cavernous, and supraclinoid segments of the bilateral internal carotid arteries are normal. The ophthalmic artery origins are visualized and normal. The posterior communicating arteries are patent. Anterior and middle cerebral arteries are normal bilaterally. The anterior communicating artery is patent. Both posterior cerebral arteries are normal. The vertebral arteries are patent and codominant. The basilar artery and origins of the bilateral posterior inferior cerebellar arteries, anterior inferior cerebellar arteries, and superior cerebellar arteries are normal. No saccular aneurysm, proximal arterial cut off, intra-arterial clot, or hemodynamically significant intracranial arterial stenosis is present. Axial, coronal and sagittal maximum int ensity projection images confirm these findings. Again noted is a large left parietal and temporal lobe acute hemorrhage which measures 8.0 x 5.0 x 4.6 cm. Rightward midline shift with mass effect on the mid brain is again noted. IMPRESSION: PAGE 1 Signed Report (CONTINUED) [facility] Age/S: 68 / F Lana Lopez Unit #: [id number] Loc: [place] [address] Phys: Emanuel Lam MD Acct: [id number] Dis Date: Status: ADM IN PHONE #: [phone] Exam Date: 06/25/2018 0022 FAX #: [phone] Re ason: r/o aneurysm EXAMS: CPT CODE: [id number] CTA HEAD [id number] <Continued> 1. No significant stenosis or aneurysm. 2. Again noted is a large left parietal and temporal lobe acute hemorrhage. at 0122 Reported and signed by: Aleksander Guerra M.D. CC: Emanuel Lam MD; John Santillan MD; Lokesh Elias DO Technologist:JOSEPHINE ARANDA CT CTDI: DLP: Trnscb Date/Time: 06/25/2018 (012) [id number] Orig Print D/T: S: 06/25/2018 (012) PAGE 2 Signed Report URINALYSIS [id number] 01:05:00* Test Item Value Reference Range Comments UA COLOR (test code=COLU) COLORLESS YELLOW UA APPEARANCE (test code=APPU) CLEAR CLEAR UA GLUCOSE DIPSTICK (test code=DGLUU) NEGATIVE mg/dL NEGATIVE UA BILIRUBIN DIPSTICK (test code=BILU) NEGATIVE mg/dL NEGATIVE UA KETONE DIPSTICK (test code=KETU) NEGATIVE mg/dL NEGATIVE UA SPECIFIC GRAVITY (test code=SGU) 1.007 1.001-1.035 UA BLOOD DIPSTICK (test code=AZAEL) Negative mg/dL NEGATIVE UA PH DIPSTICK (test code=MARK) 7.5 5.0-8.0 UA PROTEIN DIPSTICK (test code=PROU) NEGATIVE mg/dL NEGATIVE UA UROBILINIOGEN DIPSTICK (test code=URO) Normal mg/dL NEGATIVE UA NITRITE DIPSTICK (test code=ROXANN) NEGATIVE NEGATIVE UA LEUKOCYTE ESTERASE W REFLEX (test code=LEUUR) NEGATIVE Gloria/uL NEGATIVE UA WBC (test code=WBCU) 0-5 per HPF 0-5 UA RBC (test code=RBCU) 0-2 #/HPF 0-5 UA EPITHELIAL CELLS (test code=EPIU) FEW per HPF FEW UA BACTERIA (test code=BACU) FEW #/HPF NONE UA MUCUS (test code=MUCU) FEW #/LPF FEW Urine Source? Clean CatchDRUGS OF ABUSE SCREEN [id number] 01:05:00* Test Item Value Reference Range Comments URN COCAINE (test code=COCAURN) <300 ng/mL URN CANNABINOIDS (test code=CANNABURN) <50 ng/mL URN AMPHETAMINE (test code=AMPHETURN) <1000 ng/mL URN BARBITURATE (test code=BARBITURN) <200 ng/mL URN BENZODIAZEPINE (test code=BENZOURN) <200 ng/mL URN OPIATES (test code=OPIATURN) <300 ng/mL URN PHENCYCLIDINE (PCP) (test code=PHENCURN) <25 ng/mL URN METHADONE (test code=METHAURN) <300 ng/mL Urine Source? Clean CatchURINALYSIS [id number] 00:57:00* Test Item Value Reference Range Comments UA COLOR (test code=COLU) COLORLESS YELLOW UA APPEARANCE (test code=APPU) CLEAR CLEAR UA GLUCOSE DIPSTICK (test code=DGLUU) NEGATIVE mg/dL NEGATIVE UA BILIRUBIN DIPSTICK (test code=BILU) NEGATIVE mg/dL NEGATIVE UA KETONE DIPSTICK (test code=KETU) NEGATIVE mg/dL NEGATIVE UA SPECIFIC GRAVITY (test code=SGU) 1.007 1.001-1.035 UA BLOOD DIPSTICK (test code=AZAEL) Negative mg/dL NEGATIVE UA PH DIPSTICK (test code=MARK) 7.5 5.0-8.0 UA PROTEIN DIPSTICK (test code=PROU) NEGATIVE mg/dL NEGATIVE UA UROBILINIOGEN DIPSTICK (test code=URO) Normal mg/dL NEGATIVE UA NITRITE DIPSTICK (test code=ROXANN) NEGATIVE NEGATIVE UA LEUKOCYTE ESTERASE W REFLEX (test code=LEUUR) NEGATIVE Gloria/uL NEGATIVE UA WBC (test code=WBCU) per HPF 0-5 UA RBC (test code=RBCU) per HPF 0-5 UA EPITHELIAL CELLS (test code=EPIU) per HPF Few UA BACTERIA (test code=BACU) per HPF NONE Urine Source? Clean CatchDRUGS OF ABUSE SCREEN [id number] 00:57:00* Test Item Value Reference Range Comments URN COCAINE (test code=COCAURN) <300 ng/mL URN CANNABINOIDS (test code=CANNABURN) <50 ng/mL URN AMPHETAMINE (test code=AMPHETURN) <1000 ng/mL URN BARBITURATE (test code=BARBITURN) <200 ng/mL URN BENZODIAZEPINE (test code=BENZOURN) <200 ng/mL URN OPIATES (test code=OPIATURN) <300 ng/mL URN PHENCYCLIDINE (PCP) (test code=PHENCURN) <25 ng/mL URN METHADONE (test code=METHAURN) <300 ng/mL Urine Source? Clean CatchARTERIAL BLOOD [id number] 00:44:00* Test Item Value Reference Range Comments ARTERIAL BLOOD GAS PH (test code=PHA) 7.51 7.35-7.45 ARTERIAL BLOOD GAS PCO2 (test code=PCO2A) 31.6 mm Hg 35-45 ARTERIAL BLOOD GAS PO2 (test code=PO2A) 480.9 mmHg 80-100 BICARBONATE TOTAL HCO3 (test code=HCO3) 24.6 mmol/L 23.0-27.0 BASE EXCESS (test code=SUSANA) 2.1 mmol/L -3.0-5.0 ABG O2 SATURATION (test code=SATA) 98.8 % 90.0-98.0 ABG TYPE (test code=TYPEA) Arterial FIO2 (test code=FIO2A) 100.0 ABG L/M (test code=L/M) 50.00 L/MIN ABG VENT MODE (test code=MODEA) Assist Control ABG VENT RESP RATE (test code=RRA) 14.0 per min ABG TIDAL VOLUME (test code=TVA) 450.0 mL ABG PEEP (test code=PEEPA) 5.0 cmH2O ABG SITE (test code=SITEA) Rt RADIAL ARTERY MODIFIED ALLENS (test code=MODALL) Yes CHECK PERFORMED HEMATOCRIT (test code=HCT/ABG) 37 % 35-47 TOTAL HGB (test code=THB) 12.5 gram/dL 11.5-15.5 HGB O2 SAT (test code=HBOSAT) 98.4 % 94.00-98.00 CARBOXYHEMOGLOBIN (test code=HOHGBT) 0.1 %totalHg 0.5-1.5 Results called to and read back by Padmini 00:16 - 06/25/2018; by QUINTEN PETERSON, SAFETY SEALER METHEMOGLOBIN (test code=METHGB) 0.3 % 0.0-1.50 O2 CONTENT (test code=O2CT) 18.6 % vol 18.0-22.0 B-TYPE NATRIURETIC [id number] 00:30:00* Test Item Value Reference Range Comments B-TYPE NATRIURETIC PEPTIDE (test code=BNP) 19.18 pgram/mL 0-100 BASIC METABOLIC [id number] 00:11:00* Test Item Value Reference Range Comments SODIUM (test code=NA) 142 mmol/L 136-145 POTASSIUM (test code=K) 3.9 mmol/L 3.5-5.1 CHLORIDE (test code=CL) 105.0 mmol/L 98-107 CARBON DIOXIDE (test code=CO2) 28.0 mmol/L 21-32 ANION GAP (test code=GAP) 12.9 10-20 GLUCOSE (test code=GLU) 158 mg/dL 74-106 BLOOD UREA NITROGEN (test code=BUN) 12 mg/dL 7-18 GLOMERULAR FILTRATION RATE (test code=GFR) > 60 mL/min >=60 Estimated GFR by using Modified MDRD formula.Chronic kidney disease is defined as either kidney damageor GFR <60 mL/min/1.73 m2 for >3 months. CREATININE (test code=CREAT) 0.70 mg/dL 0.55-1.02 Note change in reference range due to change in reagent. BUN/CREATININE RATIO (test code=BUN/CREA) 17.1 10-20 CALCIUM (test code=CA) 8.6 mg/dL 8.5-10.1 HEPATIC FUNCTION [id number] 00:11:00* Test Item Value Reference Range Comments TOTAL PROTEIN (test code=PROT) 7.7 gram/dL 6.4-8.2 ALBUMIN (test code=ALB) 3.4 g/dL 3.4-5.0 GLOBULIN (test code=GLOB) 4.3 gram/dL 2.7-4.2 ALBUMIN/GLOBULIN RATIO (test code=A/G) 0.8 0.75-1.50 BILIRUBIN TOTAL (test code=BILT) 0.30 mg/dL 0.0-1.0 BILIRUBIN DIRECT (test code=BILD) 0.05 mg/dL 0.0-0.20 SGOT/AST (test code=AST) 44 IUnit/L 15-37 SGPT/ALT (test code=ALT) 24 IUnit/L 12-78 ALKALINE PHOSPHATASE TOTAL (test code=ALKP) 125 IUnit/L 45-117 Note change in reference range due to change in reagent. [id number] 00:11:00* Test Item Value Reference Range Comments LIPASE (test code=LIP) 45 U/L 73.0-393.0 [id number] 00:11:00* Test Item Value Reference Range Comments MAGNESIUM (test code=MAG) 1.4 mg/dL 1.8-2.4 [id number] 00:11:00* Test Item Value Reference Range Comments TROPONIN-I (test code=TROPI) <0.015 ng/mL 0-0.045 [id number] 00:11:00* Test Item Value Reference Range Comments ALCOHOL (test code=ALC) < 3 mg/dL 0.0-3.0 INTERPRETIVE DATA NOTE: POSITIVE SCREENING RESULTS SHOULD BE CONSIDERED PRESUMPTIVE.WHEN COLLECTED FOR MEDICAL PURPOSES ONLY. SPECIMEN WILL NOTBE COLLECTED BY CHAIN OF CUSTODY.IF A CONFIRMATION OF POSITIVE RESULTS IS DESIRED, ACONFIRMATION TEST MUST BE REQUESTED BY THE PHYSICIAN AT ANADDITIONAL CHARGE TO THE PATIENT. TROPONIN I [id number] 00:04:00* Test Item Value Reference Range Comments TROPONIN I RAPID (test code=TROPIRAP) 0.07 ng/mL <0.08 Please Note New Reference Range 0.00-0.079 ng/mL - Negative>or=0.08 ng/mL - Positive The use of serial sampling and testing protocol is arecommended practice.An elevated troponin level alone is often not sufficient fordiagnosis of myocardial infarction. Troponin results obtained by different assays may vary.Evaluation of the extent of myocardial damage based onincrease of troponin would be valid only if similarmethodology is used. PROTHROMBIN [id number] 00:01:00* Test Item Value Reference Range Comments PROTHROMBIN TIME PATIENT (test code=PTP) 11.6 seconds 9.0-14.0 INTERNATIONAL NORMAL RATIO (test code=INR) 1.0 0.8-1.2 The therapeutic range for oral anticoagulant therapy formost indications is an international normalized ratio (INR)of between 2.0 and 3.0. The recommended therapeutic INRrange for various clinical situations is listed below: Clinical Situation INR range Pulmonary e mbolism treatment (2.0-3.0)Venous thrombosis treatmentVenous thrombosis prophylaxis (high risk surgery)Prevention of systemic embolism from: Acute myocardial infarction Valvular heart disease Atrial fibrillation Mechanical prosthetic heart valves (2.5-3.5) IS PATIENT ON ANTICOAGULANTS? NTHROMBOPLASTIN TIME [id number] 00:01:00* Test Item Value Reference Range Comments THROMBOPLASTIN TIME PARTIAL (test code=PTT) 31.0 seconds 25.0-36.5 IS PATIENT ON ANTICOAGULANTS? NBASIC METABOLIC [id number] 23:55:00* Test Item Value Reference Range Comments SODIUM (test code=NA) 142 mmol/L 136-145 POTASSIUM (test code=K) 3.9 mmol/L 3.5-5.1 CHLORIDE (test code=CL) 105.0 mmol/L 98-107 CARBON DIOXIDE (test code=CO2) mmol/L 21-32 ANION GAP (test code=GAP) 10-20 GLUCOSE (test code=GLU) mg/dL 74-106 BLOOD UREA NITROGEN (test code=BUN) mg/dL 7-18 GLOMERULAR FILTRATION RATE (test code=GFR) mL/min >=60 CREATININE (test code=CREAT) mg/dL 0.55-1.02 BUN/CREATININE RATIO (test code=BUN/CREA) 10-20 CALCIUM (test code=CA) mg/dL 8.5-10.1 HEPATIC FUNCTION [id number] 23:55:00* Test Item Value Reference Range Comments TOTAL PROTEIN (test code=PROT) gram/dL 6.4-8.2 ALBUMIN (test code=ALB) g/dL 3.4-5.0 GLOBULIN (test code=GLOB) gram/dL 2.7-4.2 ALBUMIN/GLOBULIN RATIO (test code=A/G) 0.75-1.50 BILIRUBIN TOTAL (test code=BILT) mg/dL 0.0-1.0 BILIRUBIN DIRECT (test code=BILD) mg/dL 0.0-0.20 SGOT/AST (test code=AST) IUnit/L 15-37 SGPT/ALT (test code=ALT) IUnit/L 12-78 ALKALINE PHOSPHATASE TOTAL (test code=ALKP) IUnit/L 45-117 [id number] 23:55:00* Test Item Value Reference Range Comments LIPASE (test code=LIP) U/L 73.0-393.0 [id number] 23:55:00* Test Item Value Reference Range Comments MAGNESIUM (test code=MAG) mg/dL 1.8-2.4 [id number] 23:55:00* Test Item Value Reference Range Comments TROPONIN-I (test code=TROPI) ng/mL 0-0.045 [id number] 23:55:00* Test Item Value Reference Range Comments ALCOHOL (test code=ALC) mg/dL 0-3 - XR CHEST 1 [id number] 23:55:00 FAX: John Lombardo [phone] [place]: B St: REG FAX: Lokesh Elias DO Name: SABRINA ZAMARRIPA [facility] : 1950 Age/S: 68/F [address] [facility] Unit #: [id number] Loc: CHRISTINE Gandhi [address] Phys: Lokesh Elias DO Acct: [id number] Dis Date: Status: REG ER PHONE #: [phone] Exam Date: 06/24/2018 1222 FAX #: [phone] Reason: SHORTNESS OF BREATH EXAMS: CPT CODE: [id number] XR CHEST 1 V 34146 EXAM: - XR CHEST 1 V HISTORY: Unresponsive. COMPARISON: September 11, 2017. FINDINGS: Single AP view of the chest is provided. Endotracheal tube is 4 cm above the alejandra. Nasogastric tube is in the stomach. Heart size and vascularity are within normal limits. Calcific plaques in aorta. The lungs are clear of focal consolidation. No effusion, pneumothorax, or acute osseous abnormality. IMPRESSION: ET tube and NG tube are in place. No consolidation or effusion. at 1075 Reported and signed by: Efrain Judge MD CC: John Santillan MD; Lokesh Elias DO Technologist: Shani Rodriguez Trnscrd Date/Time/By: 06/24/2018 (7095) : By: [email or web address] Orig Print D/T: S: 06/24/2018 (5514) PAGE 1 Signed Report CBC W/AUTO [id number] 23:47:00* Test Item Value Reference Range Comments WHITE BLOOD CELL (test code=WBC) 11.0 K/mm3 4.5-12.5 RED BLOOD CELL (test code=RBC) 3.21 mill/mm3 3.7-5.2 HEMOGLOBIN (test code=HGB) 11.5 gram/dL 11.5-15.5 HEMATOCRIT (test code=HCT) 35.0 % 36.0-46.0 MEAN CELL VOLUME (test code=MCV) 109.0 fL 80-98 MEAN CELL HGB (test code=MCH) 35.8 picogram 27.0-33.0 MEAN CELL HGB CONCETRATION (test code=MCHC) 32.9 gram/dL 33.0-36.0 RED CELL DISTRIBUTION WIDTH (test code=RDW) 11.9 % 11.6-16.2 RED CELL DISTRIBUTION WIDTH SD (test code=RDW-SD) 47.9 fL 37.0-51.0 PLATELET COUNT (test code=PLT) 292 K/mm3 150-450 MEAN PLATELET VOLUME (test code=MPV) 10.4 fL 6.7-11.0 NEUTROPHIL % (test code=NT%) 53.2 % 39.0-69.0 IMMATURE GRANULOCYTE % (test code=IG%) 0.4 % 0.0-5.0 LYMPHOCYTE % (test code=LY%) 36.2 % 25.0-55.0 MONOCYTE % (test code=MO%) 5.9 % 0.0-10.0 EOSINOPHIL % (test code=EO%) 3.8 % 0.0-5.0 BASOPHIL % (test code=BA%) 0.5 % 0.0-1.0 NUCLEATED RBC % (test code=NRBC%) 0.0 % 0-0 NEUTROPHIL # (test code=NT#) 5.86 K/mm3 1.8-7.7 IMMATURE GRANULOCYTE # (test code=IG#) 0.04 x10 3/uL 0-0.03 LYMPHOCYTE # (test code=LY#) 3.98 K/mm3 1.0-5.0 MONOCYTE # (test code=MO#) 0.65 K/mm3 0-0.8 EOSINOPHIL # (test code=EO#) 0.42 K/mm3 0.0-0.5 BASOPHIL # (test code=BA#) 0.05 K/mm3 0.0-0.2 NUCLEATED RBC # (test code=NRBC#) 0.00 K/mm3 0.0-0.1 MANUAL DIFF REQUIRED (test code=MDIFF) NO - CT HEAD/BRAIN W/O [id number] 23:46:00 Name: SABRINA ZAMARRIPA [facility] : 1950 Age/S: 68 / F [address] Unit #: [id number] Loc: CHRISTINE Garcia [address] Phys: Lokesh Elias DO Acct: [id number] Dis Date: Status: REG ER PHONE #: [phone] Exam Date: 06/24/2018 2330 FAX #: [phone] Reason: CONFUSION EXAMS: CPT CODE: [id number] CT HEAD/BRAIN W/O CONT 57230 EXAM: - CT HEAD/BRAIN W/O CONT HISTORY: Altered level of consciousness TECHNIQUE: Axial tomograms through the brain were obtained without intravenous contrast. This exam was performed according to our departmental dose-optimization program, which includes automated exposure control, adjustment of the mA and/or kV according to patient size and/or use of iterative reconstruction technique. COMPARISON: None available time of interpretation. FINDINGS: There is a large acute intraparenchymal hematoma in left parietal lobe and left upper lobe. There is minimal extra- axial extension to the subdural space in left frontal region laterally. This hematoma is measuring approximately 8 x 5 x 4.6 cm in size. There is surrounding edema. There is mass effect on left lateral ventricle and midline shift to the right at 12 mm.. The osseous structures and orbits, show no significant abnormalities. The visualized sinuses are relatively clear. The soft tissues are unremarkable. Intubated. ET tube is partially seen. IMPRESSION: Acute parenchymal hematoma in left parietal and temporal lobes. There is midline shift to the right by [address] Elias in ED was called at 11:42 PM. at 5971 Reported and signed by: Efrain Judge MD PAGE 1 Signed Report (CONTINUED) Name: SABRINA ZAMARRIPA [facility] : 1950 Age/S: 68 / F [address] Unit #: [id number] Loc: CHRISTINE Garcia [address] Phys: Lokesh Elias DO Acct: [id number] Dis Date: Status: REG ER PHONE #: [phone] Exam Date: 06/24/2018 2330 FAX #: [phone] Reason: CONFUSION EXAMS: CPT CODE: [id number] CT HEAD/BRAIN W/O CONT 23129 < Continued> CC: John Santillan MD; Lokesh Elias DO Technologist:BELTRAN DAILEY RT; JOSEPHINE VAZQUEZ CTDI: DLP: Trnscb Date/Time: 06/24/2018 (6165) [email or web address] Orig Print D/T: S: 06/24/2018 (4223) PAGE 2 Signed Report [id number] 23:32:00* Test Item Value Reference Range Comments GLUBED (test code=GLUBED) 172 mg/dL 74-106 Performed by certified chief operator hydroformer at [facility] SCR MAMM BILATERAL [place] CAD [id number] 10:35:13 - SCR MAMM BILATERAL [place] CAD DIGITALBILATERAL DIGITAL SCREENING MAMMOGRAM 3D/2D WITH CAD: 02/15/2018CLINICAL: Asymptomatic. Digital breast tomosynthesis was performed in addition to routine CC and MLO views. Current mammographic images were evaluated by either a [employer] or a [employer] CAD (computer aided detection system). Comparison is made to exams dated 02/06/2017 mammogram, 12/07/2015 mammogram, and 11/10/2014 mammogram - [facility]. The re are scattered fibroglandular tissues in both breasts. No suspicious mass, ar chitectural distortion, malignant type calcification, or lymph node abnormality detected. Breast architecture is stable compared to prior exams.IMPRESSION: NEG ATIVEThere is no mammographic evidence of malignancy. Resume annual screening ma mmography in one year. Ankita Smith M.D. ar/penrad:02/15/2018 10:35 :13 Ambulance Paramedic: Cyndy Mares , [facility] sent: BIRADS 1-2 Normal Mammogram BI-RADS: 1 NegativeSCR MAMM BILATERAL [place] CAD [id number] 10:35:13 - SCR MAMM BILATERAL [place] CAD DIGITALBILATERAL DIGITAL SCREENING MAMMOGRAM 3D/2D WITH CAD: 02/15/2018CLINICAL: Asymptomatic. Digital breast tomosynthesis was performed in addition to routine CC and MLO views. Current mammographic images were evaluated by either a [employer]Vu or a [employer] CAD (computer aided detection system). Comparison is made to exams dated 02/06/2017 mammogram, 12/07/2015 mammogram, and 11/10/2014 mammogram - [facility] There are scattered fibroglandular tissues in both breasts. No suspicious mass, architectural distortion, malignant type calcification, or lymph node abnormality detected. Breast architecture is stable compared to prior exams.IMPRESSION: NEGATIVEThere is no mammographic evidence of malignancy. Resume annual screening mammography in one year. Ankita Smith M.D. ar/penrad:02/15/2018 10:35:13 Ambulance Paramedic: Cyndy Mares [place], [facility] sent: BIRADS 1-2 Normal Mammogram BI-RADS: 1 NegativeSURGICAL [id number] 10:43:00 RUN DATE: 09/19/17 [facility] *LIVE* PAGE 1 RUN TIME: 1043 Specimen Inqui ry RUN USER: INTERFACE PATIENT: SABRINA ZAMARRIPA ACCT #: [id number] LOC: [facility] U #: [id number] AGE/SX: 67/F ROOM: RE09/15/17REG DR: Freda Meyer MD : [birth year] BED: DIS: STATUS: [facility] TLOC: SPEC #: [id number] RECD: 09/16/17 STATUS: JESSE MERCADO #: [id number] TESSY: 09/16/[address] [facility] [address]: Freda Meyer MD ENTERED: 09/19/17 SP TYPE: SURG SPEC OTHR DR: John Barba MD ORDERED: LEVEL 4 CODES: [id number] - STOMACH, NOS COPIES TO: Freda Carbone MD [address] [place] [address] Ra rosmery Barba MD [address] [place] [address] PROCEDURES: GM LEVEL 4 (Incomplete) TISSUES: 1. STOMACH, NOS - Stomach, cardia, bx. 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 GROSS AND MICROSCOPIC GROSS EXAMINAT ION: Received in formalin and labeled gastric cardia polyp are segments of pink-palafox tissue that measure together up to 1.5 cm. Entirely submitted . MICROSCOPIC EXAMINATIO N: Sections of the "Stomach, cardia, bx." reveal changes of a tubulovillo us adenoma. The lesion is composed of elongated glands lined by tall colum marija epithelial cells arranged perpendicular to the gland lumens. Mitotic ac tivity is increased. No definite evidence of invasive carcinoma is seen in these slides. High-grade dysplasia and possibly adenocarcinoma in situ are identified. The Alcian blue/PAS stain does show goblet cell metaplasia. The immunostain for Helicobacter organisms is negative. (When special stains have been reviewed, the appropriate positive/negative controls have been reviewed and are appropriately positive/negative). CONTINUED ON NEXT PAGE RUN DATE: 09/19/17 [facility] *LIVE* PAGE 2 RUN TIME: 1043 Specimen Inquiry RUN USER: INTERFACE SPEC #: [id number] NATALY NT: SABRINA ZAMARRIPA #[id number] (Continued) POST-OP DIAGNOSIS Normal pancreas PRE-OP DIAGNOSIS Chronic pancr eatitis REVIEWED BY: DRE Signed SIGNATURE ON FILE Laurita Robert MD 09/19/17 1043 END OF REPORT
--- NOTE | 2018-09-11 15:57 | Diagnostic Imaging Report ---
History:Rule out stroke, MA S, slurred speech and right arm weakness Comparison studies:None Technique: Axial images were obtained from the skull base to the vertex. Coronal and sagittal images reconstructed from the axial data. Intravenous contrast: None Dose modulation, iterative reconstruction, and/or weight based adjustment of the mA/kV was utilized to reduce the radiation dose to as low as reasonably achievable. Findings: Scalp/skull: No acute abnormalities. Left temporal craniotomy changes. Extra-axial spaces: No masses. No fluid collections. Brain sulci: Mildly prominent. Ventricles: Mild compensatory dilatation. No hydrocephalus. Parenchyma: Cortical-based hypodensity at the left posterior temporal and lateral occipital lobes with associated volume loss. No other abnormal densities. No masses, hemorrhage or acute cortical vascular insults. Sellar/suprasellar region: No abnormalities. Craniocervical junction: Patent foramen magnum. No Chiari one malformation. Incidental findings: Atherosclerotic calcifications in the carotid siphons and vertebral arteries . Impression: No acute abnormalities. Chronic findings: 1. Remote infarct at the left inferior temporal and lateral occipital lobe. 2. Mild generalized volume loss. 3. Mild supratentorial white matter small vessel ischemic changes. Signed by: DR Haider Enriquez M.D. on 09/11/2018 3:54 PM
[2018-09-11 17:10] LABS: BASOPHILS % 0.4 % (0.0-1.0); EOSINOPHILS # (AUTO) 0.2 (0.0-0.4); EOSINOPHILS % 1.5 % (0.0-6.0); HEMATOCRIT 40.5 % (34.2-44.1); HEMOGLOBIN 13.3 g/dL (12.0-16.0); LYMPHOCYTES % 20.5 % (18.0-39.1); MEAN CORPUSCULAR HEMOGLOBIN 30.7 pg (28-32); MEAN CORPUSCULAR HGB CONC 32.8 g/dL (31-35); MEAN CORPUSCULAR VOLUME 93.5 fL (81-99); MONOCYTES # (AUTO) 0.5 (0.2-0.8); MONOCYTES % 5.1 % (4.4-11.3); NEUTROPHILS % 72.1 % (38.7-80.0); PLATELET COUNT 250 x10e3/uL (140-360); RED BLOOD COUNT 4.33 x10e6/uL (3.6-5.1); RED CELL DISTRIBUTION WIDTH 12.8 % (11.7-14.4)
[2018-09-11 17:27] LABS: INR 1.01; PROTHROMBIN TIME 13.8 seconds (11.9-14.5)
[2018-09-11 17:28] LABS: PARTIAL THROMBOPLASTIN TIME 28.4 seconds (23.8-35.5)
[2018-09-11 17:36] LABS: ALANINE AMINOTRANSFERASE 16 IU/L (0-55); ALBUMIN/GLOBULIN RATIO 0.8 (0.8-2.0); ALKALINE PHOSPHATASE 108 IU/L (40-150); ANION GAP 16.3 mmol/L (8-16); BLOOD UREA NITROGEN 13 mg/dL (7-26); BUN/CREATININE RATIO 15 (6-25); CARBON DIOXIDE 26 mmol/L (22-29); CHLORIDE 101 mmol/L (98-107); CREATININE, SERUM 0.84 mg/dL (0.57-1.11); EST GLOMERULAR FILTRATION RATE > 60 ML/MIN (60-); GLUCOSE 186 mg/dL (74-118); POTASSIUM 3.3 mmol/L (3.5-5.1); SODIUM 140 mmol/L (136-145)
--- NOTE | 2018-09-11 19:00 | NUR ---
received report from day nurse. patient is resting comfortably in bed. bed is in lowest position and call barajas is within reach. will continue to monitor patient.
[2018-09-11 19:49] LABS: CLARITY,URINE HAZY (CLEAR); COLOR,URINE YELLOW (YELLOW); LEUKOCYTE ESTERASE ,URINE SMALL (NEGATIVE)
[2018-09-11 19:50] LABS: BILIRUBIN,URINE NEGATIVE (NEGATIVE); KETONES,URINE NEGATIVE (NEGATIVE); NITRITE,URINE NEGATIVE (NEGATIVE); PROTEIN,URINE DIPSTICK NEGATIVE (NEGATIVE); URINE UROBILINOGEN 0.2 mg/dL (0.2 - 1)
[2018-09-11 19:54] LABS: BACTERIA,URINE MANY /HPF; EPITHELIAL CELLS,URINE FEW /LPF; RBC,URINE 0-5 /HPF (0-5)
[2018-09-11] MEDS ORDERED: POTASSIUM CHLORIDE 20 MEQ TAB CR PO STA (20:02)
[2018-09-11] MEDS ORDERED: DEXTROSE 50% SYRINGE 50 ML IV PRN (20:15)
[2018-09-11] MEDS: SODIUM CHLORIDE 0.9% 1000ML 1,000 ML IV SCH (20:54)
[2018-09-11] MEDS: ONDANSETRON HCL INJ 2MG/ML 2ML 2 MG/ML VIAL IV PRN (21:11)
[2018-09-11] MEDS: INSULIN REGULAR, HUMAN 100 UNIT/1 ML 3ML VIAL SQ SCH (21:56)
[2018-09-11 23:00] VITALS: BP 199/97
--- NOTE | 2018-09-11 23:00 | NUR ---
patient is a new admit that arrived via stretcher. patient has been transferred into the bed. bed is in the lowest position and call barajas is within reach. will continue to monitor patient.
[2018-09-11] MEDS ORDERED: LABETALOL HCL 5 MG/ML 20ML VIAL IV STA (23:04)
[2018-09-11] MEDS ORDERED: LABETALOL HCL 5 MG/ML 20ML VIAL IV PRN (23:15)
--- NOTE | 2018-09-11 23:20 | NUR ---
patients blood pressure is elevated. notified received new order for prn blood pressure medicines and STAT dose blood pressure medicine. will continue to monitor patient.
[2018-09-12] VITALS (8 sets, daily range): BP systolic 124–171; BP diastolic 76–101
[2018-09-12] MEDS: ONDANSETRON HCL INJ 2MG/ML 2ML 2 MG/ML VIAL IV PRN ×2 (02:03→08:30)
--- NOTE | 2018-09-12 06:51 | NUR ---
report given to day nurse. patient is resting comfortably in bed. bed is in lowest position and call barajas is within reach.
[2018-09-12] MEDS ORDERED: CARAFATE1 GM PO (08:20)
[2018-09-12] MEDS ORDERED: METOPROLOL TART25 MG PO (08:20)
[2018-09-12] MEDS ORDERED: METFORMIN HCL500 MG PO (08:20)
[2018-09-12] MEDS ORDERED: VITAMIN B-121000 MCG PO (08:20)
[2018-09-12] MEDS ORDERED: MULTI-VITAMIN1 EACH PO (08:20)
--- NOTE | 2018-09-12 08:40 | NUR ---
paged to notify T100.5. Awaiting call back
--- NOTE | 2018-09-12 09:22 | NUR ---
oral surgeon for . Aware of T 100.5 and HR 120. See orders
[2018-09-12] MEDS ORDERED: MAGNESIUM HYDROXIDE 30 ML UDC PO ONE (09:30)
[2018-09-12] MEDS ORDERED: BISACODYL 5 MG TAB EC PO ONE (09:30)
[2018-09-12] MEDS: ACETAMINOPHEN 325 MG TAB PO PRN ×2 (09:38→15:55)
[2018-09-12] MEDS: INSULIN REGULAR, HUMAN 100 UNIT/1 ML 3ML VIAL SQ SCH ×4 (09:38→21:00)
[2018-09-12] MEDS: SODIUM CHLORIDE 0.9% 1000ML 1,000 ML IV SCH ×2 (10:30→12:15)
[2018-09-12] MEDS ORDERED: ONDANSETRON HCL INJ 2MG/ML 2ML 2 MG/ML VIAL IV ONE (11:30)
[2018-09-12] MEDS ORDERED: LEVETIRACETAM 500MG/5ML VIAL 1,500 MG in SODIUM CHLORIDE 0.9% 100 ML 100 ML IV ONE (11:45)
--- NOTE | 2018-09-12 12:00 | NUR ---
states " I won't continue medications at this time. Patient is NPO. You can give PRN tylenol by mouth."
--- NOTE | 2018-09-12 12:02 | NUR ---
spoke with Byron with answering service to notify of new consult for
--- NOTE | 2018-09-12 12:33 | History and Physical ---
CHIEF COMPLAINT: Less responsiveness. HISTORY OF PRESENT ILLNESS: This is a 68-year-old woman, who was brought to [facility] because according to family members, she became less interactive and more confused over the last 24 hours. The patient apparently had intracerebral hemorrhage in June 2018 and since then has had right-sided weakness as well as well as difficulty with speech and difficulty in understanding directions. Adult daughter states these symptoms became much pronounced last few days prior to admission. Also the patient was experiencing rhythmic twitching of the right upper extremity and she was gazing towards the right for prolonged period of time. CT of the brain performed in the emergency room did not reveal any acute intracranial abnormality, but did reveal what appears to be remote infarct in the left inferior temporal and lateral occipital lobes. The patient's blood work was unremarkable. Potassium was 3.3. Urinalysis did reveal findings consistent with urinary tract infection with many bacteria, 11 to 20 white blood cells per high-power field. The patient was admitted for further evaluation and treatment. REVIEW OF SYSTEMS: GENERAL: Weight has been stable. More confused for last couple of days. No fever or chills. HEENT: No complaints of headaches, but the family states the patient was gazing toward the right for a prolonged period of time. CARDIOVASCULAR/RESPIRATORY: No complaints of chest pain, short of breath or cough. GI: She has been experiencing nausea and vomiting for the last 24 hours. No diarrhea according to family members. : UTI diagnosed in emergency room, but no UTI symptoms were endorsed by the family. NEUROMUSCULAR: The patient was experiencing rhythmic twitching of the right upper extremity, was gazing toward the right for a prolonged period of time according to family members. Also, the patient has been more confused usual for the last few days according to the daughter. ALLERGIES: NO KNOWN DRUG ALLERGIES. PAST MEDICAL HISTORY: 1. Cerebrovascular disease (intracerebral hemorrhage in June 2018). 2. Hypertensive heart disease. 3. Type 2 diabetes mellitus. 4. Hyperlipidemia. 5. Mild obesity. 6. Non ST elevated myocardial infarction June 2018. FAMILY HISTORY: Multiple family members with hypertensive heart disease. No family history of strokes. SOCIAL HISTORY: This woman is single. She lives in apartment alone, but her adult daughter do stay with her. No history of tobacco or alcohol use. PAST SURGICAL HISTORY: 1. Ventral hernia repair in 2014. 2. Hysterectomy. 3. Left upper extremity surgery. HOME MEDICATIONS: 1. Vitamin B12 1000 mcg daily. 2. Lovastatin 80 mg at bedtime. 3. Metformin 500 mg b.i.d. 4. Metoprolol tartrate 25 mg b.i.d. 5. Multivitamin daily. 6. Carafate 1 g t.i.d. 7. Valsartan 80 mg daily. 8. Tylenol 650 one every 4 hours p.r.n. pain. PHYSICAL EXAMINATION: GENERAL: She is awake, alert, speaks only Icelandic. She has both receptive and expressive aphasia. It is difficult for her to follow directions. Her adult daughter is at bedside, who provides most of the history. I examined the patient in conjunction with the neurologist. VITAL SIGNS: The patient's blood pressure at this time is 130/100, but it did get as high as 199/100 in the emergency room. Heart rate is 120, temperature has gotten as high as 100.5, respiratory rate 18, oxygen saturation 96%. Her height 5 feet 3 inches, weight 170 pounds, BMI 30. SKIN: Warm and dry. No pallor, jaundice, or diaphoresis. HEENT: Anicteric sclerae. Moist mucous membranes. No obvious facial droop. She has dysarthria as well as expressive and receptive aphasia. NECK: Supple. CARDIOVASCULAR: Distant heart sounds. Tachycardic rate, regular rhythm. The patient has S4 gallop. LUNGS: No rales. No rhonchi or wheezes. ABDOMEN: Obese, benign. EXTREMITIES: No edema. NEUROLOGIC: She has obvious right hemiparesis. DIAGNOSES: 1. Cerebrovascular disease (history of intracerebral hemorrhage in June 2018). 2. Seizure, likely. 3. Hypertensive heart disease. 4. Type 2 diabetes mellitus. 5. Urinary tract infection. PLAN: 1. Gentle blood pressure control. 2. Intravenous fluids. 3. Consult Neurology. 4. Agree with MRI of the brain as ordered by the emergency room physician. 5. I agree with antiseizure medications. 6. We will send urine for culture. 7. We will start intravenous ceftriaxone for patient's urinary tract infection. I spent 45 in the care of this patient. MD LILLY Harman/LUANA /[id number] NAVEEN
[2018-09-12] MEDS: PROMETHAZINE 25MG/ NS 50ML (IV) IV PRN ×2 (12:44→18:23)
--- NOTE | 2018-09-12 12:44 | NUR ---
Tele #[id number] ST [id number]. aware of HR. No new orders
[2018-09-12 12:51] LABS: BASOPHILS % 0.1 % (0.0-1.0); HEMATOCRIT 39.6 % (34.2-44.1); HEMOGLOBIN 13.4 g/dL (12.0-16.0); LYMPHOCYTES # (AUTO) 1.3 (1.0-3.2); LYMPHOCYTES % 9.4 % (18.0-39.1); MEAN CORPUSCULAR HEMOGLOBIN 30.7 pg (28-32); MEAN CORPUSCULAR HGB CONC 33.8 g/dL (31-35); MEAN CORPUSCULAR VOLUME 90.8 fL (81-99); MONOCYTES # (AUTO) 0.5 (0.2-0.8); MONOCYTES % 3.9 % (4.4-11.3); NEUTROPHILS # (AUTO) 11.6 (2.1-6.9); NEUTROPHILS % 86.1 % (38.7-80.0); PLATELET COUNT 309 x10e3/uL (140-360); RED BLOOD COUNT 4.36 x10e6/uL (3.6-5.1); RED CELL DISTRIBUTION WIDTH 12.7 % (11.7-14.4)
[2018-09-12] MEDS: CEFTRIAXONE SOD 1 GM/NS 50 ML 50 ML IV SCH (12:54)
--- NOTE | 2018-09-12 13:17 | Diagnostic Imaging Report ---
History: Confused, rule out stroke Comparison studies: CT head 09/11/2018 Technique: Sagittal T2; axial DWI, FLAIR, MPGR, T1, Coronal FLAIR. Intravenous contrast: None Findings: Scalp: Normal in signal . No masses . Bone marrow: Left temporal craniotomy changes Extra-axial: No masses, no fluid collections. Brain sulci: Mildly prominent. Ventricles: Mildly prominent . No hydrocephalus . Parenchyma: Encephalomalacia with volume loss is at the left mid temporal gyrus, inferior temporal gyrus and lateral occipital lobe, related to remote insult. Medial to the left temporo occipital encephalomalacia there is a linear area of restricted diffusion. Minimal blooming at the encephalomalacia site related to chronic blood products. No midline shift or function seen No masses or acute hemorrhage. Suprasellar region: No abnormalities. Craniocervical junction: No abnormalities. Patent foramen magnum. No Chiari one malformation. Vessels: Normal flow-voids in the arteries and sinuses. IMPRESSION: 1. Chronic infarct at the left temporo-occipital region with superimposed acute infarct in the medial margin of the encephalomalacia. No midline shift, acute hemorrhage or hydrocephalus. The remaining examination is stable Signed by: DR Haider Enriquez M.D. on 09/12/2018 1:13 PM
[2018-09-12 13:27] LABS: ALANINE AMINOTRANSFERASE 18 IU/L (0-55); ALBUMIN 2.9 g/dL (3.5-5.0); ALBUMIN/GLOBULIN RATIO 0.7 (0.8-2.0); ALKALINE PHOSPHATASE 99 IU/L (40-150); AMYLASE 22 U/L (25-125); ANION GAP 20.5 mmol/L (8-16); BLOOD UREA NITROGEN 9 mg/dL (7-26); BUN/CREATININE RATIO 11 (6-25); CALCIUM 8.4 mg/dL (8.4-10.2); CARBON DIOXIDE 25 mmol/L (22-29); CHLORIDE 98 mmol/L (98-107); CREATININE, SERUM 0.85 mg/dL (0.57-1.11); EST GLOMERULAR FILTRATION RATE > 60 ML/MIN (60-); GLUCOSE 241 mg/dL (74-118); POTASSIUM 3.5 mmol/L (3.5-5.1); SODIUM 140 mmol/L (136-145)
--- NOTE | 2018-09-12 13:30 | NUR ---
aware of MRI results. See orders
[2018-09-12 14:27] LABS: CHOL/HDL RATIO 2.1 (3.0-3.6)
[2018-09-12 14:36] LABS: AMYLASE 20 U/L (25-125); LIPASE 7 U/L (8-78)
[2018-09-12] MEDS: PANTOPRAZOLE 40 MG 10ML VIAL IV SCH (15:55)
[2018-09-12] MEDS: METOCLOPRAMIDE HCL 10 MG/2ML VIAL IV SCH ×2 (15:55→20:23)
--- NOTE | 2018-09-12 16:20 | NUR ---
patient c/o of urge to void, but unable. Bladder scan done. 267ml noted. Paged to notify of patient's status.
--- NOTE | 2018-09-12 17:00 | NUR ---
aware patient c/o of urge to void, but unable to. Per insert Srinivasan catheter.
--- NOTE | 2018-09-12 17:05 | NUR ---
16F wayne inserted. Elizabeth Guidry RN observed in the aseptic insertion of the catheter. 275ml cloudy yellow urine noted. Addendum: 09/12/18 at 1716 by JENSEN CLARK RN wayne securement in place
--- NOTE | 2018-09-12 18:53 | NUR ---
Report given to oncoming nurse of patient's status. Resting in bed, side rails upx2, call light within reach, daughter at bedside. NO s/s of acute distress noted.
--- NOTE | 2018-09-12 20:00 | Consultation ---
DATE OF CONSULTATION: 09/12/2018 Neurology Consult Note HISTORY OF PRESENT ILLNESS: Ms. Dorsey is a 68-year-old woman with an extensive past medical history including hypertension, hyperlipidemia, diabetes mellitus, type 2, and prior intracerebral hemorrhage with residual dysarthria, receptive aphasia, and right hemiparesis, admitted to [facility] on September 11, 2018, with worsening of neurological deficits. History is obtained from one of the patient's daughters, who is at the bedside. She reports Ms. Dorsey has experienced a 2-day history of worsening confusion as well as worsening of the residual deficits from her prior intracerebral hemorrhage (dysarthria, receptive aphasia, and right hemiparesis). On the day of admission, the patient's daughter noted Ms. Dorsey to have rightward gaze and head version with rhythmic jerking movements of the right hemibody for an unknown duration of time. The patient's daughter reports thinking Ms. Dorsey may be experiencing a seizure. Therefore, she was brought to the emergency center at [facility] for further evaluation of her symptoms. Upon arrival in the emergency center, the patient had a temperature of 97.4 degrees Fahrenheit, a blood pressure of 134/85 mmHg and a pulse of 69 beats per minute. Documentation of the patient's neurological examination is unavailable for review at this time. While in the emergency center, routine blood and urine studies were significant for mild hypokalemia, an elevated serum glucose of 186, and findings on urinalysis suspicious for urinary tract infection. A CT of the brain without contrast was performed while the patient was in the emergency center. There was no evidence of recent large territorial ischemia or hemorrhage on this study. Ms. Dorsey was then admitted to [facility] under observation status for further evaluation and treatment of her symptoms. There is no known personal history of febrile seizures. To her knowledge, Ms. Dorsey's daughter reports the patient has never experienced a seizure. However, after her intracerebral hemorrhage 2 months ago, the patient did take Keppra for seizure prophylaxis for 30 days. There is no known family history of seizures. As detailed, Ms. Dorsey did experience initial cerebral hemorrhage in July of 2014 affecting the left basal ganglia, temporal, and occipital lobes. There is no known history of meningitis or encephalitis. REVIEW OF SYSTEMS: Fever, nausea, vomiting, confusion, dysarthria, receptive aphasia, right facial weakness, weakness of the right arm and leg, seizures. Otherwise, a 12-point review of systems is negative. PAST MEDICAL HISTORY: Hypertension, hyperlipidemia, diabetes mellitus type 2, prior ST-elevation myocardial infarction, prior hemorrhagic stroke with residual dysarthria, receptive aphasia, and right hemiparesis. PAST SURGICAL HISTORY: Hysterectomy, ventral hernia repair, left arm surgery. PAST HOSPITALIZATIONS: Surgeries/procedures as listed, hemorrhagic stroke in July 2018. FAMILY MEDICAL HISTORY: Hypertension. SOCIAL HISTORY: Ms. Dorsey is . She lives in an apartment. Since her stroke 2 months ago, her daughters alternate living with and caring for the patient. Ms. Dorsey is retired. There is no reported current or prior tobacco, alcohol, or recreational drug use. HOME MEDICATIONS: Metoprolol 25 mg by mouth twice daily, valsartan 80 mg by mouth daily, lovastatin 80 mg by mouth at bedtime daily, metformin 500 mg by mouth twice daily, sucralfate 1 g by mouth three times daily, multivitamin one tablet by mouth daily, vitamin B12 1000 mcg by mouth daily, Tylenol 650 mg by mouth every 6 hours as needed for pain. HOSPITAL MEDICATIONS: Acetaminophen, ceftriaxone, insulin regular, Protonix, Keppra. ALLERGIES: NO KNOWN DRUG ALLERGIES. NO KNOWN FOOD ALLERGIES. NO KNOWN ALLERGIES TO LATEX. NO KNOWN ALLERGIES TO IODINE OR OTHER CONTRAST MATERIALS. PHYSICAL EXAMINATION: VITAL SIGNS: Height 63 inches, weight 170 pounds, BMI 30.1 kg/m2. Blood pressure 131/101 mmHg, pulse 120 beats per minute, respiratory rate 20 breaths per minute, oxygen saturation 96% on room air. GENERAL: The patient is awake and alert, mildly distressed. Obese. HEENT: Normocephalic, atraumatic. Pupils are equal, round, and reactive to light. Moist mucous membranes. NECK: Supple. No appreciable thyromegaly. No appreciable carotid bruits. CARDIOVASCULAR: S1, S2. Tachycardic, regular rhythm. No murmurs, rubs, or gallops. RESPIRATORY: Clear to auscultation bilaterally. No wheezes, rhonchi, or rales. EXTREMITIES: The skin is warm and dry. No clubbing, cyanosis, or edema. The posterior tibial and dorsalis pedis pulses are 1+ and symmetric. SKIN: No rashes or lesions. NEUROLOGIC: Memory/Attention: The patient is awake and alert, oriented to person. Cranial Nerves: Cranial nerve I - not tested. Cranial nerve II, III, IV, and - pupils are equal and round, react briskly to light (from 4 mm to 2 mm). Extraocular movements intact. No nystagmus. Cranial nerve 5 - sensation is grossly intact to light touch in the bilateral V1 through V3 distributions. Strength in the temporalis and masseter muscles are within normal limits. Cranial nerve VII - the face is asymmetric on the right as are all facial movements. Mild right central facial weakness is appreciated. Cranial nerve VIII - hearing is intact to finger rub bilaterally. Cranial nerve IX, X - the soft palate elevates equally and symmetrically. Cranial nerve XI - normal strength of the bilateral sternocleidomastoid and trapezius muscles. Cranial nerve XII - the tongue protrudes midline and moves symmetrically from [id number]. Strength: Bulk is normal. Strength is 5/5 in the left deltoid, biceps, triceps, wrist flexors and extensors, finger flexors and extensors, intrinsic hand muscles, hip flexors, knee flexors and extensors, ankle dorsiflexion and plantar flexion, and intrinsic foot muscles. Strength of the right arm flexors is 4+/5. Strength of the right arm extensors is 4/5. Strength of the right leg flexors is 4/5. Strength of the right leg extensors is 4+/5. Tone is mildly increased in the right arm and right leg. DTRs: Deep tendon reflexes are 2+ at the left triceps, biceps, brachioradialis, and patella. Deep tendon reflexes are 3+ at the right triceps, biceps, brachioradialis, and patella. Deep tendon reflexes are absent and symmetric at the Achilles. Plantar responses are flexor bilaterally. Sensation: Sensation is grossly intact to light touch in both arms and both legs. Cerebellar: Unable to assess secondary to receptive aphasia. Gait: Deferred. Speech: Spontaneous speech is moderately dysarthric with receptive aphasia. Repetition is not intact. Involuntary movements: None. Pronator Drift: Positive on the right. LABORATORY DATA: A comprehensive metabolic panel is significant for potassium of 3.3, anion gap of 16.3, glucose of 186, albumin of 3.0, and globulin of 3.9. Fingerstick serum glucoses have ranged from 166-172. The CBC with differential and platelets is unremarkable. A coagulation profile is unremarkable. The urinalysis reveals hazy urine with a specific gravity of 1.005, small leukocyte esterase, 11-20 white blood cells, and many urine bacteria. DIAGNOSTIC STUDIES: CT of the brain without contrast 09/11/2018: On my review, there is no evidence of recent large territorial ischemia, hemorrhage, mass, or mass effect. A chronic infarct is seen in the left inferior temporal and lateral occipital region. There is mild diffuse cerebral atrophy with compensatory dilatation of the ventricles, appropriate for the patient's age. There are scattered hypodensities compatible with [id number] chronic small-vessel ischemic disease. ASSESSMENT AND PLAN: Ms. Dorsey is a 68-year-old woman with multiple vascular risk factors, admitted to [facility] on September 11, 2018, with worsening of baseline neurological deficits and seizure-like activity. The patient has undergone a thorough neurological examination with findings detailed above. Her laboratory data and other diagnostic studies have been reviewed and are documented above. It is possible the patient has experienced an ischemic insult to the brain, probably in the distribution of the left middle cerebral artery. However, the patient's urinary tract infection as well as the report of seizure-like activity make these diagnoses the more likely causes for the patient's presentation. RECOMMENDATIONS: Are as follows: 1. A MRI of the brain without contrast has been ordered. 2. A routine EEG will be ordered. 3. Ms. Dorsey will receive a loading dose of levetiracetam 1500 mg (approximately 20 mg/kg) intravenously once now. For maintenance/seizure prophylaxis, she will receive Keppra 1000 mg by mouth twice daily. 4. Intravenous Rocephin has been prescribed for treatment of the patient's urinary tract infection. Continue antibiotic treatment for the patient's urinary tract infection. 5. Defer treatment of the remaining medical comorbidities to the primary and other services following the patient. Thank you for this consultation. I shall continue to follow the patient while she remains in the hospital. TIME SPENT: 70 minutes. Nerissa Walton MD CP/LUANA /[id number] MTDD
--- NOTE | 2018-09-12 21:56 | Consultation ---
DATE OF CONSULTATION: 09/12/2018 Consult Note HISTORY OF PRESENT ILLNESS: This is a 68 years old, who has a history of CVA from intracerebral hemorrhage in June 2018, history of hypertensive heart disease, diabetes, hyperlipidemia, who presented to the hospital because of some mental status changes and the patient has had chronic complaints of nausea and vomiting. She denies any abdominal pain along with this problem. She had an MRI of the brain, which on admission shows remote infarct at the left inferior temporal and lateral occipital lobe and otherwise no acute. Her CBC was okay. Her liver enzymes normal. She does have history of diabetes. PAST MEDICAL HISTORY: Significant for history of diabetes, history of hypertension. History of hyperlipidemia, obesity, CVA from intracerebral hemorrhage, status post ventral hernia repair. PAST SURGICAL HISTORY: Hysterectomy. HOME MEDICATIONS: Including vitamin B12, lovastatin, metformin, metoprolol, Carafate, valsartan, and Tylenol. SOCIAL HISTORY: No alcohol use. FAMILY HISTORY: Noncontributory. REVIEW OF SYSTEMS: At this point, she denies any chest pain. Denies any shortness of breath. Denies any dysphagia, odynophagia. Denies any dysuria, hematuria, or any kind of syncopal episodes. PHYSICAL EXAMINATION: GENERAL: The patient is awake, alert, appears to be stable, not in acute distress at this point. VITAL SIGNS: Afebrile, currently with stable vital signs. HEAD, EYES, EARS, NOSE AND THROAT: Normocephalic, atraumatic. Sclerae are anicteric. NECK: Supple. HEART: Regular. ABDOMEN: Soft. There is no distention at this point. It is nontender. EXTREMITIES: No cyanosis. No clubbing LABORATORY VALUES: Significant for WBC of 13.4, hemoglobin of 13.4. PT/INR is normal. BUN of 13, creatinine 0.8. Liver enzymes normal. IMPRESSION: 1. Nausea and vomiting, the patient's etiology is unclear at this point. 2. Mental status changes. 3. History of hemorrhagic cerebrovascular accident. RECOMMENDATIONS: To continue with antibiotics at this point. I will add Reglan and follow clinically. Morris Ham MD DHD/MODL /[id number] cc: Katharine Brantley MD
--- NOTE | 2018-09-12 22:38 | Diagnostic Imaging Report ---
EXAM: Right Upper Quadrant Ultrasound INDICATION: intractable nausea/vomiting COMPARISON: None. TECHNIQUE: Transverse and longitudinal images of the right upper abdomen were obtained. FINDINGS: Liver: Size: 14.7 cm in the right midclavicular line, normal Appearance: Normal echogenicity, smooth contour Mass: No focal masses Gallbladder: Stones/Sludge: Echogenic shadowing gallstone and biliary sludge. Wall: 3.4 mm, mildly thickened Appearance:. Distended. No definite pericholecystic fat stranding. Sonographic Martinez's Sign: Negative Bile Ducts: Intrahepatic Ducts: No dilatation Extrahepatic Ducts: Common bile duct measures 0.3 cm, no dilatation Pancreas: Visualized portions of the pancreatic head, neck and proximal body are normal. Right Kidney: Size: 10 cm Echogenicity: Normal Parenchymal thickness: Normal Collecting system: No hydronephrosis Stones: None Cyst/Mass: None Vessels: Aorta: Visualized portions are normal Inferior Vena Cava: Visualized portions are normal Main Portal Vein: 0.6 cm, normal size with hepatopetal flow. Free Fluid: No ascites or pleural effusion IMPRESSION: Findings raise suspicion for acute calculus cholecystitis. Signed by: Jose Roberto Kiran DO on 09/12/2018 10:35 PM
[2018-09-13] VITALS (10 sets, daily range): BP systolic 105–166; BP diastolic 59–96
[2018-09-13] MEDS: SODIUM CHLORIDE 0.9% 1000ML 1,000 ML IV SCH ×3 (01:35→21:55)
[2018-09-13 05:40] LABS: BASOPHILS % 0.2 % (0.0-1.0); HEMATOCRIT 36.3 % (34.2-44.1); HEMOGLOBIN 12.1 g/dL (12.0-16.0); LYMPHOCYTES # (AUTO) 1.7 (1.0-3.2); LYMPHOCYTES % 13.8 % (18.0-39.1); MEAN CORPUSCULAR HEMOGLOBIN 30.9 pg (28-32); MEAN CORPUSCULAR HGB CONC 33.3 g/dL (31-35); MEAN CORPUSCULAR VOLUME 92.6 fL (81-99); MONOCYTES # (AUTO) 0.8 (0.2-0.8); MONOCYTES % 6.2 % (4.4-11.3); NEUTROPHILS # (AUTO) 9.7 (2.1-6.9); NEUTROPHILS % 78.8 % (38.7-80.0); PLATELET COUNT 263 x10e3/uL (140-360); RED BLOOD COUNT 3.92 x10e6/uL (3.6-5.1)
[2018-09-13 06:16] LABS: ALANINE AMINOTRANSFERASE 18 IU/L (0-55); ALBUMIN 2.6 g/dL (3.5-5.0); ALBUMIN/GLOBULIN RATIO 0.7 (0.8-2.0); ALKALINE PHOSPHATASE 82 IU/L (40-150); ANION GAP 17.2 mmol/L (8-16); BLOOD UREA NITROGEN 8 mg/dL (7-26); BUN/CREATININE RATIO 11 (6-25); CALCIUM 7.9 mg/dL (8.4-10.2); CARBON DIOXIDE 27 mmol/L (22-29); CHLORIDE 97 mmol/L (98-107); CREATININE, SERUM 0.72 mg/dL (0.57-1.11); EST GLOMERULAR FILTRATION RATE > 60 ML/MIN (60-); GLUCOSE 199 mg/dL (74-118); POTASSIUM 3.2 mmol/L (3.5-5.1); SODIUM 138 mmol/L (136-145)
--- NOTE | 2018-09-13 07:00 | NUR ---
BEDSIDE SHIFT REPORT RECEIVED FROM NIGHT RN. PT DENIES NEEDS AT THIS TIME.
--- NOTE | 2018-09-13 07:02 | NUR ---
report given to morning nurse. patient is resting comfortably in bed. bed is in lowest position and call barajas is within reach.
[2018-09-13] MEDS: INSULIN REGULAR, HUMAN 100 UNIT/1 ML 3ML VIAL SQ SCH ×4 (07:30→21:52)
[2018-09-13] MEDS: PANTOPRAZOLE 40 MG 10ML VIAL IV SCH ×2 (08:37→16:53)
[2018-09-13] MEDS: LEVETIRACETAM 500 MG TAB PO SCH ×2 (08:37→16:53)
[2018-09-13] MEDS: METOCLOPRAMIDE HCL 10 MG/2ML VIAL IV SCH ×4 (08:37→21:36)
[2018-09-13] MEDS ORDERED: POTASSIUM CHLORIDE 20MEQ/100ML 100 ML IV ONE (09:00)
--- NOTE | 2018-09-13 11:09 | Progress Note ---
DATE: 09/13/2018 SUBJECTIVE: Ms. Dorsey is a 68-year-old female with history of intracerebral hemorrhage in June 2018, hypertension, diabetes, hyperlipidemia, and [id number] [place]. Also in June 2018, the patient was brought to the emergency room by the family because the patient was getting confused and had twitching of the right upper extremity. CT in the emergency room did not show any acute findings. The patient has been evaluated by neurologist, Dr. Walton. Apparently, she started having some vomiting and GI consult was requested with Dr. Ham. PHYSICAL EXAMINATION: GENERAL: Today, she is awake, but she gets confused at times. VITAL SIGNS: Temperature is 99.4, blood pressure 165/96. HEART: Regular rate. LUNGS: Poor inspiratory effort. ABDOMEN: Soft. NEUROLOGIC: She is alert, but she is slightly confused today. The speech, she has some dysarthria. The strength on the right side is decreased 4/5. LABORATORY DATA: On the blood work, white count is 12.26 with hemoglobin 12.1, hematocrit 36.3. Potassium was 3.2 today, glucose 199, creatinine 0.72. Lipase and amylase normal. Urine culture is pending. UA showed 11-[address] blood [address] Head CT was negative. Ultrasound of gallbladder shows suspicion of acute calculous cholecystitis. MRI of the brain is showing a chronic infarct at the left temporo-occipital region with a superimposed acute infarct in the medial margin with encephalomalacia. No acute hemorrhage. ASSESSMENT: 1. Acute stroke. 2. Chronic infarct in the left temporo-occipital region. 3. Probably seizure disorder. 4. Urinary tract infection. 5. Diabetes type 2. 6. Vomiting. 7. Acute calculous cholecystitis. 8. Hypertension. 9. Hyperlipidemia. PLAN: At the present time on this patient is, she needs bed swallow evaluation. Continue IV antibiotics. PT/OT evaluation. The patient was also started on Keppra 1000 mg twice a day. EEG results are pending. Continue on pantoprazole 40 mg IV twice a day. Continue sliding scale with insulin. The overall prognosis of the patient is guarded. All this was discussed with the patient and daughter at bedside. All questions were answered to their satisfaction. I spent more than 35 minutes examining the patient, reviewing overnight events, lab results, x-rays, and discussing plan of care with the patient and daughter at bedside. MD FAMILIA Pollard/LUANA /[id number]
[2018-09-13] MEDS: CEFTRIAXONE SOD 1 GM/NS 50 ML 50 ML IV SCH (11:55)
--- NOTE | 2018-09-13 13:00 | NUR ---
DR. MAC NOTIFIED OF EEG EQUIPMENT BEING DOWN AND NOT REPAIRABLE UNTIL TOMORROW. DR. MAC STATED SHE WOULD ROUND ON PT TOMORROW.
[2018-09-13] MEDS: PROMETHAZINE 25MG/ NS 50ML (IV) IV PRN ×2 (13:36→23:30)
--- NOTE | 2018-09-13 15:30 | NUR ---
REPORT GIVEN TO TAMERA AMADOR AND PT TRANSFER TO RM [id number] AT THIS TIME. PT TOLERATED. DAUGHTER AT BEDSIDE.
--- NOTE | 2018-09-13 15:36 | NUR ---
PATIENT ARRIVED ON THE UNIT PER STRETCHER FROM ROOM 175. PATIENT IS CONFUSED AND ALERT TO SELF. PATIENT IN STABLE CONDITION WITH NO S/S OF RESPIRATORY DISTRESS. NO PAIN INDICATED. IV FLUIDS INFUSING. GRAYSON INTACT AND DRAINING. TELEMETRY APPLIED- ST@118. DAUGHTER PRESENT IN ROOM AND DOES NOT WANT THE BED ALARM AT THIS TIME. DAUGHTER WILL CALL TO INFORM STAFF PRIOR HER NEEDING TO LEAVE THE ROOM. CALL LIGHT IS WITHIN REACH, INSTRUCTED TO CALL FOR ASSISTANCE NEEDED.
--- NOTE | 2018-09-13 18:32 | NUR ---
CALL PLACED OUT TO DR. PORTER FOR PRN AGITATION MEDICATION FOR PATIENT- AWAITING CALLBACK.
--- NOTE | 2018-09-13 19:12 | NUR ---
PATIENT RESTING IN BED- IN STABLE CONDITION WITH NO S/S OF RESPIRATORY DISTRESS. NO PAIN VOICED. IV FLUIDS INFUSING. DAUGHTER PRESENT IN ROOM. CALL LIGHT IS WITHIN REACH, PATIENT INSTRUCTED TO CALL FOR ASSISTANCE NEEDED. BEDSIDE REPORT GIVEN TO ONCOMING NURSE.
--- NOTE | 2018-09-13 19:33 | NUR ---
RECEIVED CALLBACK FROM DR. PORTER REGARDING MEDICATION FOR PATIENT'S AGITATION- RECEIVED ORDER FOR IV ATIVAN 0.5MG Q6H PRN AND ORDER TO RECEIVE OKAY FOR MED FROM NEUROLOGY. CALLED AND SPOKE WITH DR. MAC TO VERIFY THE MEDICATION AND DOSE OF IV ATIVAN 0.5MG Q6H PRN IS OKAY FOR THE PATIENT - RECEIVED OKAY FROM DR. MAC.
--- NOTE | 2018-09-13 19:52 | NUR ---
RECEIVED PT IN BED AOX3 .RESPIRATIONS ARE EVEN AND UNLABORED .RT SIDED WEAKNESS DENIES PAIN FAMILY AT THE SIDE .JAMES LIGHT WITH INREACH
[2018-09-13] MEDS: LORAZEPAM INJ 2 MG/ML VIAL IV PRN (20:38)
[2018-09-14] VITALS (55 sets, daily range): BP systolic 73–156; BP diastolic 28–86
[2018-09-14] MEDS ORDERED: MIDAZOLAM HCL 2 MG/2 ML VIAL ONE (02:46)
[2018-09-14 03:17] LABS: BASOPHILS % 0.3 % (0.0-1.0); EOSINOPHILS # (AUTO) 0.1 (0.0-0.4); EOSINOPHILS % 0.6 % (0.0-6.0); HEMATOCRIT 34.5 % (34.2-44.1); HEMOGLOBIN 11.5 g/dL (12.0-16.0); LYMPHOCYTES # (AUTO) 5.7 (1.0-3.2); LYMPHOCYTES % 63.2 % (18.0-39.1); MEAN CORPUSCULAR HEMOGLOBIN 30.7 pg (28-32); MEAN CORPUSCULAR HGB CONC 33.3 g/dL (31-35); MEAN CORPUSCULAR VOLUME 92.2 fL (81-99); MONOCYTES # (AUTO) 0.3 (0.2-0.8); MONOCYTES % 3.1 % (4.4-11.3); NEUTROPHILS # (AUTO) 2.8 (2.1-6.9); NEUTROPHILS % 30.3 % (38.7-80.0); PLATELET COUNT 246 x10e3/uL (140-360); RED BLOOD COUNT 3.74 x10e6/uL (3.6-5.1); RED CELL DISTRIBUTION WIDTH 13.1 % (11.7-14.4)
[2018-09-14 03:40] LABS: ALBUMIN 2.4 g/dL (3.5-5.0); ALBUMIN/GLOBULIN RATIO 0.8 (0.8-2.0); ANION GAP 21.9 mmol/L (8-16); CALCIUM 7.5 mg/dL (8.4-10.2); CREATININE, SERUM 0.97 mg/dL (0.57-1.11)
[2018-09-14 03:41] LABS: POTASSIUM 2.9 mmol/L (3.5-5.1)
[2018-09-14 04:22] LABS: CREATINE KINASE MB 8.4 ng/mL (0-5.0)
--- NOTE | 2018-09-14 04:30 | NUR ---
Recieved to ICU 190 at 0353. Amiodarone in use. IVF NS at 75, s/p 1 liter bolus. Called and spoke with Dr Brantley, she orders consult Dr Ag. Repeated calls to Dr Ag are not contacting with the answering service. Called retail warehouse supervisor, who was in ED, to notify regarding Dr Ag. product blending supervisor stated the ED physician, Baudilio Christensen MD, will continue to provide orders this shift. Dopamine was ordered, was instructed to be ready for central line placement and Ogt placement by Dr Christensen. Order to give 20kcl IV for the serum potassium of 2.9.
--- NOTE | 2018-09-14 04:44 | Diagnostic Imaging Report ---
EXAMINATION: CHEST SINGLE (PORTABLE) INDICATION: Intubation. COMPARISON: None FINDINGS: TUBES and LINES: ET tube with distal tip approximately 1.6 cm proximal to the alejandra. LUNGS: Lungs are not well inflated. Left basilar subsegmental atelectasis. There is no evidence of pneumonia or pulmonary edema. PLEURA: No pleural effusion or pneumothorax. HEART AND MEDIASTINUM: The cardiomediastinal silhouette is unremarkable. BONES AND SOFT TISSUES: No acute osseous lesion. Soft tissues are unremarkable. UPPER ABDOMEN: No free air under the diaphragm. IMPRESSION: ET tube with distal tip approximately 1.6 cm proximal to the alejandra. Signed by: Dr. Megan Dyer M.D. on 09/14/2018 4:40 AM
--- NOTE | 2018-09-14 04:58 | Diagnostic Imaging Report ---
EXAMINATION: Head CT without contrast. HISTORY:Altered mental status. COMPARISON:MRI brain from 09/12/[address] brain from 09/11/2018. TECHNIQUE: Multidetector axial images were obtained from the foramen magnum to the vertex without contrast. The images were reconstructed using brain and bone algorithms. Thin section brain images were reformatted into coronal and sagittal planes. Dose modulation, iterative reconstruction, and/or weight based adjustment of the mA/kV was utilized to reduce the radiation dose to as low as reasonably achievable. Intravenous contrast: None IMAGE QUALITY: Acceptable. FINDINGS: Skull/scalp: Unchanged expected postoperative changes from prior left temporal craniotomy. No acute abnormality. Parenchyma: Unchanged cortical-based hypodensity in the left temporal lobe and lateral left occipital lobe with persistent deep white matter hypodensity (vasogenic edema) in left anterior aspect of temporal lobe. Mild regional mass effect particularly with effacement of left hemispheric cortical sulci (image 28, series 401). No midline shift or herniation. No other new abnormal density. Nonspecific few, scattered supratentorial white matter hypodensity are likely related to small vessel ischemic changes. No acute hemorrhage, mass or acute major vascular territorial infarct. Arteries: No density suggestive of thrombosis. Dural sinuses: No abnormal density suggestive of thrombosis. Ventricles: Mild compensated dilatation due to volume loss. No hydrocephalus. Extra-axial spaces: No abnormal density. Brain volume: Normal for age. Craniocervical junction: No mass, Chiari malformation, or basilar invagination. Sella: No mass. Paranasal/mastoid sinuses: Imaged portions unremarkable. IMPRESSION: Unchanged chronic encephalomalacia in left temporal occipital region with surrounding vasogenic edema likely represents sequelae of prior vascular insult and/or in combination to prior intervention with possible underlying residual mass or subacute/chronic hemorrhage in the periphery, as seen as peripheral restricted diffusion particularly in the medial aspect on MRI brain from 09/12/2018. Due to the presence of vasogenic edema consider further evaluation with postcontrast MRI of the brain to rule out underlying mass. Prior surgical report or preoperative images if available for comparison will be helpful. Signed by: Dr. Ute Alejandra M.D. on 09/14/2018 4:55 AM
[2018-09-14] MEDS ORDERED: POTASSIUM CHLORIDE 20MEQ/100ML 100 ML IV ONE (05:00)
--- NOTE | 2018-09-14 05:07 | NUR ---
PT HR WAS 200 AT 2AM AND PT HAS NO PULSE .CALLED CODE RAPID .CPR AND INTUBATION DONE BY CODE BLUE TEAM AND PT IS TRANSFERRED TO ICU DAUGHTER WAS HERE DR HERMAN,DR MAC AND DR BECKWITH WAS NOTIFIED
[2018-09-14] MEDS: INSULIN REGULAR, HUMAN 100 UNIT/1 ML 3ML VIAL SQ SCH ×3 (07:30→18:00)
[2018-09-14] MEDS: HEPARIN SOD (PORCINE) 5,000 UNIT/ML VIAL SC SCH ×2 (09:00→22:10)
[2018-09-14] MEDS: PANTOPRAZOLE 40 MG 10ML VIAL IV SCH ×2 (09:07→18:01)
[2018-09-14] MEDS: METOCLOPRAMIDE HCL 10 MG/2ML VIAL IV SCH ×4 (09:07→22:10)
[2018-09-14 09:24] LABS: ABG PCO2 30 mmHg (41-51); ABG PH 7.53 (7.31-7.41)
[2018-09-14 09:25] LABS: ABG HCO3 25 mmol/L (23-28); ABG PO2 163 mmHg (80-105)
[2018-09-14 09:35] LABS: BAND NEUTROPHILS % (MANUAL) 5 %; EOSINOPHILS % (MANUAL) 2 % (0-7); LYMPHOCYTES % (MANUAL) 53 % (19-48); MONOCYTES % (MANUAL) 6 % (3.4-9.0); NEUTROPHILS % (MANUAL) 29 % (40-74); NUCLEATED RED BLOOD CELLS 1
[2018-09-14 09:36] LABS: ANISOCYTOSIS S; PLATELET ESTIMATE ADEQUATE; PLATELET MORPHOLOGY COMMENT NORMAL; POIKILOCYTOSIS S; RBC MORPHOLOGY COMMENT NORMAL
--- NOTE | 2018-09-14 10:38 | Progress Note ---
DATE: 09/14/2018 SUBJECTIVE: Ms. Dorsey is a 68-year-old female with history of intracranial hemorrhage in June 2018, hypertension, diabetes, hyperlipidemia, brought to the emergency room by the family because the patient started getting confused and had twitching of the right upper extremity. MRI showed that the patient had another acute stroke on top of the old one. She was having vomiting, so GI consult was requested with Dr. Ham. Last night, informed my nurse that the patient was very agitated and trying to get out of bed. She received a low-dose of IV Ativan that did not help her and then later in the police department secretary/night, I was called because code team had to be called because of cardiac arrest. The patient was resuscitated. She was intubated and she was transferred to the ICU and started on IV dopamine for low blood pressure. PHYSICAL EXAMINATION: GENERAL: Today, she opens her eyes and she moves her head like she is understanding what I say. She is orally intubated. VITAL SIGNS: Temperature is 98.1, blood pressure 100/55, oxygenation 100%, heart rate was 98. HEART: Regular rate. LUNGS: Poor inspiratory effort. ABDOMEN: Soft. LABORATORY DATA: On the blood work, white count is 9.07, hemoglobin is 11.5, hematocrit 34.5. Glucose 222, potassium was 2.9. BNP 1591. Troponin is 7.698. CPK is 402. CK is 8.40. Urine is showing gram-negative bacilli. Identification and susceptibility are pending. Had a head CT done today that shows unchanged with the one done on 09/12/2018. Gallbladder ultrasound showed findings suspicious for acute calculous cholecystitis. MRI of the brain showed chronic infarct with superimposed acute infarct in the medial margin of the encephalomalacia. ASSESSMENT AND PLAN: 1. Status post cardiac arrest and CPR. 2. Acute respiratory failure, on ventilator. 3. Acute stroke. 4. Elevated troponin, concerning for acute myocardial infarction. 5. History of chronic infarct in the left temporal and occipital area. 6. Seizure disorder. 7. Urinary tract infection with gram-negative bacilli. 8. Diabetes, type 2. 9. History of hypertension. 10. Possible acute calculous cholecystitis. PLAN: At present time, the patient is orally intubated on ventilator. She seems to understand what I am telling her. She is on dopamine until we can get a central line and start her on a higher dose if needed for hypertension. Cardiac enzymes are positive. We are going to get a Cardiology consult with Dr. Dao. We already placed a critical care consult with Dr. Ag. We are going to continue empirically IV antibiotics. Continue Keppra if needed twice a day. Continue pantoprazole IV. Continue sliding scale with insulin. The overall prognosis of the patient is guarded. I spent more than 40 minutes examining the patient, reviewing overnight events, lab results, x-ray, and discussing plan of care with her daughter at bedside and all questions were answered to satisfaction. MD FAMILIA Pollard/LUANA /[id number]
--- NOTE | 2018-09-14 11:44 | Diagnostic Imaging Report ---
Exam: KUB - 2 views Clinical History: NG tube placement Comparison: Chest radiograph of the same day. Findings: NG tube projects below the diaphragm and close in the stomach, terminating in the fundus with side-port in the body the stomach. Nonobstructive bowel gas pattern. Degenerative changes of the visualized spine. No free air. Impression: NG tube terminates in the stomach. Signed by: Monae Begum MD on 09/14/2018 11:40 AM
[2018-09-14] MEDS: POTASSIUM CHLORIDE 20MEQ/15ML UDC NG PRN (11:56)
[2018-09-14] MEDS: LEVETIRACETAM ORAL SOLUTION 500 MG/5 ML SOLN PEG SCH ×3 (11:56→21:22)
--- NOTE | 2018-09-14 13:51 | NUR ---
Speech Therapy NOTE: Pt moved to ICU overnight, now intubated with NG tube. Will continue to follow pt status and resume Speech Therapy when pt clinically appropriate. Handoff to MARJORIE Eldridge
--- NOTE | 2018-09-14 14:59 | Consultation ---
DATE OF CONSULTATION: September 14, 2018 Pulmonary Consultation Patient of Dr. Brantley, Dr. Walton, Dr. Armenta. HISTORY OF PRESENT ILLNESS: Charming but unfortunate 68-year-old woman with history of hemorrhagic stroke in June of this year. Family states it affected her speech, but not movement. She was admitted because of apparent focal seizures in the right hand. She has a history of hypertension, insulin-dependent diabetes, remote gastric cancer, esophageal stricture. Nonsmoker, nondrinker. Worked for [employer]. She has a chronic infarct at the left temporo-occipital region. She was apparently agitated and anxious to go home and then developed an episode of ventricular tachycardia arrest. She was promptly resuscitated and is awake and alert. She is intubated. She was shocky, placed on dopamine, which is weaning off. She is also on amiodarone. Plan is to discontinue the dopamine. PHYSICAL EXAMINATION: GENERAL: She is a well-developed white female, awake and alert. There is swelling of the left hand where amiodarone had been infiltrated. VITAL SIGNS: Temperature 98, pulse 100 and regular, respirations 16, blood pressure 100/60. HEENT: Head, normocephalic, atraumatic. LUNGS: Few rhonchi. She is intubated orally. HEART: Regular rhythm. ABDOMEN: Nontender. EXTREMITIES: There is swelling at the IV site of the left hand, which was amiodarone infusion. Cardiology evaluation is on the way, presumed IN and ventricular tachycardia arrest. We will defer weaning pending Cardiology evaluation. Troponins were elevated. Blood sugar has also been elevated. We will attempt to control blood sugar. Consider prophylactic heparin, prophylactic Protonix. Replace potassium. Thank you for this kind referral. MD FRANCOIS Lara/LUANA /[id number]
--- NOTE | 2018-09-14 15:38 | Diagnostic Imaging Report ---
EXAMINATION: CHEST XRAY POST PROCEDURE INDICATION: Line placement COMPARISON: Chest radiograph of earlier the same day FINDINGS: LINES/TUBES:Interval placement of right IJ nontunneled central venous catheter terminating in the SVC. Endotracheal tube terminates 2.5 cm above the alejandra. NG tube coils and terminates in the stomach. EKG leads overlie the chest. LUNGS:The lung volumes are low. There is perihilar fullness and indistinctness of the pulmonary vasculature. PLEURA:No pleural effusion or pneumothorax. MEDIASTINUM:The cardiomediastinal silhouette appears unchanged in size and shape. Atherosclerotic calcifications of the thoracic aorta. BONES/SOFT TISSUES:No acute osseous injury. ABDOMEN:No free air under the diaphragm. IMPRESSION: Interval placement of right IJ central venous catheter terminating in the SVC. Other lines and tubes as above. Low lung volumes. Possible mild pulmonary edema. Signed by: Monae Begum MD on 09/14/2018 3:35 PM
--- NOTE | 2018-09-14 15:57 | Diagnostic Imaging Report ---
PROCEDURE: Non-tunneled central venous catheter placement Procedural Personnel Attending physician(s): Monae Begum MD Fellow physician(s): None Resident physician(s): None Advanced practice provider(s): None Pre-procedure diagnosis: Hypotension Post-procedure diagnosis: Same Indication: Need for central venous access for pressor medication. Additional clinical history: None Complications: No immediate complications. IMPRESSION: Insertion of right-sided non-tunneled triple lumen Trialysis catheter, with tip in the expected location of the superior vena cava. Plan: The catheter may be used immediately. PROCEDURE SUMMARY: - Venous access with ultrasound guidance - Non-tunneled central venous catheter insertion with fluoroscopic guidance - Additional procedure(s): None PROCEDURE DETAILS: Pre-procedure Consent: Informed consent for the procedure including risks, benefits and alternatives was obtained and time-out was performed prior to the procedure. Preparation (MIPS): The site was prepared and draped using all elements of maximal sterile barrier technique including sterile gloves, sterile gown, cap, mask, large sterile sheet, sterile ultrasound probe cover, hand hygiene and cutaneous antisepsis with 2% chlorhexidine. Medical reason for site preparation exception (MIPS): Not applicable Anesthesia/sedation Level of anesthesia/sedation: No sedation Anesthesia/sedation administered by: Independent trained observer under attending supervision with continuous monitoring of the patient?s level of consciousness and physiologic status Access Local anesthesia was administered. The vessel was sonographically evaluated and determined to be patent. Real time ultrasound was used to visualize needle entry into the vessel and a permanent image was stored. Vein accessed: Internal jugular vein Access technique: Micropuncture set with 21 gauge needle Catheter placement The access site was dilated and the catheter was placed into the vein over a wire under fluoroscopic guidance. The catheter tip location was fluoroscopically verified and a permanent image was stored.. A sterile dressing was applied. Catheter placed: Trialysis Catheter size (Portuguese): 7 Catheter length (cm): 16 Catheter flush: Normal saline Catheter securement technique: Non-absorbable suture Contrast Contrast agent: None Radiation Dose None Additional Details Additional description of procedure: None Equipment details: None Specimens removed: None Estimated blood loss (mL): Less than 10 Standardized report: [email or web address] Attestation Signer name: Monae Begum MD I attest that I was present for the entire procedure. I reviewed the stored images and agree with the report as written. Signed by: Monae Begum MD on 09/14/2018 3:54 PM
[2018-09-14] MEDS: CEFTRIAXONE SOD 1 GM/NS 50 ML 50 ML IV SCH (16:41)
--- NOTE | 2018-09-14 16:58 | NUR ---
Nutrition Intervention Note RD Recommendation(s) for Physician: -When pt is hemodynamically stable, rec to initiate continuous TF with Glucerna 1.2 @10ml/hr, advance as tolerated to goal rate of 50mL/hr with 2pkts Beneprotein (1440kcal, 84g protein, and 966mL water) -Rec 50mL water flushes q 4hr, additional per MD -Check labs, gastric tolerance, weight daily Plan of Care: RD following, monitoring for tolerance and adequacy, TF rec Nutrition reason for involvement: New TF RD Assessment 09/14- 68yo F, who was admitted for CVA. Pt with hx of hemorrhagic stroke in June of this year, which affected her speech, but not movement. Pt was coded for cardiac arrest this morning. The patient was resuscitated. She was intubated and transferred to the ICU. Pt was weaning off Dopamine (5mcg/min). IVF was running at 75mL/hr. NGT has been placed. Reviewed her medical records and labs. No pressure wound noted. Left TF recommendation in chart; RN is aware. Will continue to monitor and follow. Principal Problems/Diagnoses: 1. Status post cardiac arrest and CPR. 2. Acute respiratory failure, on ventilator. 3. Acute stroke. PMH: intracranial hemorrhage in June 2018, hypertension, diabetes, hyperlipidemia GI: Abdomen soft, round, flatus present, +NGT Skin: no pressure wound noted Labs: (09/14) K 2.9 L, Glucose 257 H, Ca 7.5 L Meds: (09/14) KCl, insulin, reglan, protonix Ht: 63in Wt: 170lb BMI: 30.1kg/m2 IBW: 115lb +/- 10% Malnutrition Evaluation (09/14/2018) Unable to evaluate at this time. Nutrition Prescription (Diet Order): NPO Estimated Nutritional Needs: Calories: 1254 - 1425kcal(22 25kcal/kg/d) Weight used: IBW Protein: 85 - 142g(1.5-2.5g/kg/d) Weight used: IBW Diet Adequacy: Not meeting calorie needs, Not meeting protein needs Diet Education Needs Assessment: Diet education indicated, but patient not appropriate for education at this time. Nutrition Care Level: mod Nutrition Diagnosis: Inadequate oral intake related to current medical status (intubated/ ventilated) as evidenced by pt requiring EN as main source of nutrition. Goal: Patient will meet 75-100% of estimated needs by follow up Progress: Not Progressing Interventions: Composition, Rate, Route Monitoring/Evaluation: Total energy intake, Total protein intake, Formula/Solution, Weight change Signed: Monse Benavides MS, RD, LD
[2018-09-14] MEDS: LORAZEPAM INJ 2 MG/ML VIAL IV PRN (17:23)
[2018-09-14] MEDS ORDERED: NOREPINEPHRINE 8 MG/D5W 250 ML 250 ML ONE (17:28)
[2018-09-14] MEDS: NOREPINEPHRINE 8 MG/D5W 250 ML 250 ML IV SCH (17:30)
[2018-09-14] MEDS ORDERED: NOREPINEPHRINE INJ 4MG/4ML 8 MG in DEXTROSE 5% 250ML 250 ML IV SCH (17:30)
[2018-09-14] MEDS: SODIUM CHLORIDE 0.9% 1000ML 1,000 ML IV SCH (18:01)
--- NOTE | 2018-09-14 18:29 | NUR ---
729- Attempted to call Dr. Ag about potassium 2.9 this AM. No answer. 899- Dr. Ag rounded and informed of patients lack of IV access for pressor support. ordered Central line placement by interventional radiology. also informed that patients L arm is swollen, has dark discoloration, and feels cool to touch. Potassium replacement ordered as well. 1030- NG tube placed with bilious drainage. KUB ordered to confirm placement prior to usage. 1415- CVC RIJ placed at bedside by interventional radiology. X ray ordered to confirm placement. 153- Awaiting results for x ray of placement of central line. 170- Dr. Lomas informed of patients increase in HR up to 130's. MD ordered to start pt on Levophed and wean Dopamine drip. Will continue to monitor the patient. Addendum: 09/14/18 at 1920 by Mitzi Garvey RN 1445- Patient has limited PIV access, waiting for central line x ray to verify placement. Patient becoming hypotensive, Dopamine is at max infusion rate through PIV.
[2018-09-14] MEDS: PROPOFOL IV EMULSION 10MG/ML 100 ML IV SCH (20:29)
[2018-09-14] MEDS: SIMVASTATIN 20 MG TAB PO SCH (22:10)
--- NOTE | 2018-09-14 22:35 | NUR ---
Decreased urine output. Trending down over last 3 hours from 30cc/hr to 10cc/hr urine output. Spoke with Dr Ag. Order to bolus 250ml NS now and increase maintenance NS to 100cc/hr. Will monitor.
[2018-09-15] VITALS (25 sets, daily range): BP systolic 79–172; BP diastolic 47–137
[2018-09-15] MEDS ORDERED: AMIODARONE HCL 900 MG in DEXTROSE 5% 500ML 500 ML IV SCH (00:15)
[2018-09-15] MEDS ORDERED: AMIODARONE 900MG 500 ML IV SCH (00:30)
--- NOTE | 2018-09-15 00:42 | Consultation ---
DATE OF CONSULTATION: 09/14/2018 Cardiology Consult Note REASON FOR CONSULT: Cardiac arrest on the floor requiring CPR and intubation, reported ventricular tachycardia. CHIEF COMPLAINT: Could not be obtained as the patient is intubated. HISTORY OF PRESENT ILLNESS: The patient is a 68-year-old female with history of hemorrhagic CVA earlier this year. She was admitted to the hospital with more stroke-like symptoms and hypertension. While her telemetry box was getting the battery change, she had a witnessed cardiac arrest, reported VT, probably resuscitated and intubated. Blood pressure is low, admitted to ICU, started on dopamine, currently on IV amiodarone. We are consulted for further evaluation. REVIEW OF SYSTEMS: Could not be obtained as the patient is intubated. FAMILY HISTORY: Noncontributory. SOCIAL HISTORY: Noncontributory. Does not smoke, drink, or abuse drugs. OUTPATIENT MEDICATIONS: Reviewed. ALLERGIES: NO KNOWN DRUG ALLERGIES. OBJECTIVE: VITAL SIGNS: Temperature afebrile, pulse 116, respiratory rate 12, blood pressure 111/61, and saturating 100% on mechanical ventilation. GENERAL: Middle-aged female, intubated, awake. CARDIOVASCULAR: Tachycardic. Irregular. No murmurs, rubs, or gallops. LUNGS: Clear to auscultation anteriorly. ABDOMEN: Soft, nontender, and nondistended. NEUROLOGIC AND PSYCHIATRIC: Follow some basic commands, hard to evaluate due to patient being intubated. INPATIENT MEDICATIONS: Reviewed. LABORATORY DATA: Reviewed. Notable for potassium of 2.9, which is critically low, BNP of 1591, troponin elevated at 7.69. IMAGING DATA: Reviewed. TELEMETRY DATA: Reviewed. ASSESSMENT: 1. Cardiac arrest. 2. Ventricular tachycardia. 3. Elevated troponin. 4. Acute on chronic systolic heart failure exacerbation. PLAN: VT arrest likely result of non-ST elevation IL versus cardiomyopathy in the setting of low potassium. Either way, the patient needs ischemic workup, given elevated troponin, recommend starting full-dose anticoagulation. However, given history of hemorrhagic stroke, we will defer to Neurology if this is acceptable. The patient will also need cardiac catheterization once more stable to see if there is any significant coronary lesions that may have resulted in VT arrest. Please correct all electrolytes, especially potassium and magnesium. Continue IV amiodarone. The patient will need either a LifeVest or ICD prior to discharge. Thank you for this consult. We will continue to follow. MD CAROLINA Cristobal/LUANA /[id number]
[2018-09-15] MEDS: INSULIN REGULAR, HUMAN 100 UNIT/1 ML 3ML VIAL SQ SCH ×4 (01:48→17:44)
--- NOTE | 2018-09-15 03:31 | NUR ---
Pt remains with low urine output. Spoke with Dr Ag who ordered a 500cc ns bolus. Will monitor.
[2018-09-15] MEDS: PROPOFOL IV EMULSION 10MG/ML 100 ML IV SCH (05:16)
[2018-09-15] MEDS: SODIUM CHLORIDE 0.9% 1000ML 1,000 ML IV SCH ×2 (05:17→05:34)
--- NOTE | 2018-09-15 06:02 | Diagnostic Imaging Report ---
EXAMINATION: CHEST SINGLE (PORTABLE) INDICATION: Cerebrovascular accident. Intubated. COMPARISON: None FINDINGS: TUBES and LINES: ET tube with distal tip approximately 2.5 cm proximal to the alejandra, previously 1.6 cm, possibly due to technical difference.. LUNGS: Bilateral suboptimal inflation with bibasilar subsegmental atelectasis, unchanged. . PLEURA: No pleural effusion or pneumothorax. HEART AND MEDIASTINUM: The cardiac silhouette is borderline enlarged.. There are atherosclerotic calcifications within the aorta. BONES AND SOFT TISSUES: No acute osseous lesion. Soft tissues are unremarkable. UPPER ABDOMEN: No free air under the diaphragm. IMPRESSION: Stable examination. Bibasilar subsegmental atelectasis. Signed by: Dr. Megan Dyer M.D. on 09/15/2018 5:59 AM
[2018-09-15 06:11] LABS: BASOPHILS % 0.3 % (0.0-1.0); EOSINOPHILS # (AUTO) 0.1 (0.0-0.4); EOSINOPHILS % 1.2 % (0.0-6.0); HEMATOCRIT 29.2 % (34.2-44.1); LYMPHOCYTES # (AUTO) 2.6 (1.0-3.2); LYMPHOCYTES % 22.4 % (18.0-39.1); MEAN CORPUSCULAR HEMOGLOBIN 30.8 pg (28-32); MEAN CORPUSCULAR HGB CONC 34.2 g/dL (31-35); MEAN CORPUSCULAR VOLUME 89.8 fL (81-99); MONOCYTES # (AUTO) 0.9 (0.2-0.8); MONOCYTES % 7.5 % (4.4-11.3); NEUTROPHILS # (AUTO) 7.8 (2.1-6.9); PLATELET COUNT 189 x10e3/uL (140-360); RED BLOOD COUNT 3.25 x10e6/uL (3.6-5.1); RED CELL DISTRIBUTION WIDTH 13.2 % (11.7-14.4)
[2018-09-15 06:22] LABS: INR 1.16; PROTHROMBIN TIME 15.4 seconds (11.9-14.5)
[2018-09-15 06:32] LABS: ANION GAP 12.7 mmol/L (8-16); BLOOD UREA NITROGEN 12 mg/dL (7-26); BUN/CREATININE RATIO 14 (6-25); CARBON DIOXIDE 23 mmol/L (22-29); CHLORIDE 107 mmol/L (98-107); CREATININE, SERUM 0.88 mg/dL (0.57-1.11); EST GLOMERULAR FILTRATION RATE > 60 ML/MIN (60-); GLUCOSE 170 mg/dL (74-118); SODIUM 140 mmol/L (136-145)
[2018-09-15 06:34] LABS: POTASSIUM 2.7 mmol/L (3.5-5.1)
[2018-09-15 06:35] LABS: CALCIUM 6.9 mg/dL (8.4-10.2)
[2018-09-15] MEDS: POTASSIUM CHLORIDE 20MEQ/15ML UDC NG PRN (06:55)
[2018-09-15] MEDS ORDERED: POTASSIUM CHLORIDE 20MEQ/100ML 100 ML IV ONE (09:00)
[2018-09-15] MEDS ORDERED: PROPOFOL IV EMULSION 10MG/ML 100 ML IV SCH (09:15)
--- NOTE | 2018-09-15 10:07 | Diagnostic Imaging Report ---
Exam: Head CT without contrast History: Change in mental status, CVA Comparison studies: Head CTs of 09/14/2018 09/11/2018. Brain MRI 09/12/2016. Technique: Axial images were obtained from the skull base to the vertex. Coronal and sagittal images reconstructed from the axial data. Dose modulation, iterative reconstruction, and/or weight based adjustment of the mA/kV was utilized to reduce the radiation dose to as low as reasonably achievable. Radiation dose: Total DLP: 921 mGy*cm. Estimated effective dose: DLP x 0.015 Intravenous contrast: None Findings: Scalp and bones: Changes of prior left temporal craniotomy. Brain sulci: Appropriate for age. Ventricles: Normal in size and configuration. No hydrocephalus. Extra-axial spaces: No masses, no fluid collection. Parenchyma: Unchanged chronic insult in the left lateral occipital and left temporal lobe with encephalomalacia and gliosis superimposed on a background nonspecific hypodense changes beneath a left temporal craniotomy. Abnormal restricted diffusion in the left temporal lobe and left lateral occipital lobe as well as evidence for prior hemorrhage seen on the prior MRI of 09/12/2018 cannot be differentiated from the nonspecific hypodense changes and chronic insult within the left temporal and lateral occipital lobes. No new acute cortical infarct. No acute intracranial hemorrhage or significant mass effect. A few subtle hypodensities in the supratentorial white matter are nonspecific but may reflect chronic microvascular ischemic changes. Sellar/suprasellar region: No abnormalities. Craniocervical junction: Patent foramen magnum. No Chiari I malformation. Incidental findings: Atherosclerotic calcifications in the carotid siphons. IMPRESSION: 1. No new acute intracranial abnormalities or changes from the prior head CT of 09/14/2018. Specifically, no new acute cortical infarct, acute intracranial hemorrhage or mass-effect. 2. Mild chronic microvascular ischemic changes. 3. Chronic left occipitotemporal insult beneath an old left temporal craniotomy. Cannot differentiated possible superimposed acute ischemia or underlying mass by noncontrast CT. Recommend correlation with surgical history. Brain MRI with IV contrast may further evaluate barring any contraindications, as warranted. Signed by: Dr. Guy Banuelos M.D. on 09/15/2018 10:04 AM
[2018-09-15 10:08] LABS: ABG HCO3 23 mmol/L (23-28); ABG PCO2 30 mmHg (41-51); ABG PH 7.48 (7.31-7.41); ABG PO2 155 mmHg (80-105)
[2018-09-15] MEDS: LEVETIRACETAM ORAL SOLUTION 500 MG/5 ML SOLN PEG SCH ×2 (10:30→17:43)
[2018-09-15] MEDS: ASPIRIN 81 MG CHEW TAB NG SCH (10:30)
[2018-09-15] MEDS: CYANOCOBALAMIN 1,000 MCG TAB PO SCH (10:30)
[2018-09-15] MEDS: PANTOPRAZOLE 40 MG 10ML VIAL IV SCH ×2 (10:30→17:43)
--- NOTE | 2018-09-15 11:46 | Diagnostic Imaging Report ---
EXAMINATION: CHEST SINGLE (PORTABLE) INDICATION: Shortness of breath COMPARISON: Chest radiograph of earlier the same day FINDINGS: LINES/TUBES:Endotracheal tube has intervally been advanced, now terminating less than 1 cm above the alejandra. NG tube projects below the diaphragm with tip and side-port in the stomach. Right IJ central venous catheter terminates in SVC. EKG leads overlie the chest. LUNGS:The lung volumes are low. No focal consolidation or klaudia edema. PLEURA:No pleural effusion or pneumothorax. MEDIASTINUM:The cardiomediastinal silhouette appears unchanged in size and shape. BONES/SOFT TISSUES:No acute osseous injury. ABDOMEN:No free air under the diaphragm. IMPRESSION: Interval advancement of endotracheal tube which now terminates less than a centimeter above the alejandra. Recommend retraction of tube by approximately 2 to 3 cm. Low lung volumes. No focal pneumonia or pulmonary edema. Signed by: Monae Begum MD on 09/15/2018 11:42 AM
[2018-09-15] MEDS: HEPARIN SOD (PORCINE) 5,000 UNIT/ML VIAL SC SCH (12:00)
--- NOTE | 2018-09-15 12:14 | Progress Note ---
DATE: 09/15/2018 SUBJECTIVE: Ms. Dorsey is a 68-year-old female with history of hemorrhagic stroke in June 2018, diabetes, hypertension, and hyperlipidemia, brought to the emergency room, a week ago she started getting confused and having a twitching of the right upper extremity. MRI showed that the patient had another acute stroke on top of the old one. While in the floor, the patient became agitated, went into ventricular tachycardia and cardiac arrest. She had CPR. She was intubated and transferred to ICU where she was started on IV dopamine for low blood pressure and she is on IV amiodarone. Cardiac enzymes come back negative, so the patient ruled in for a non-STEMI. PHYSICAL EXAMINATION: GENERAL: Today, she opens her eyes and she moves her head like she understands what I am asking her. VITAL SIGNS: Temperature is 99.4, blood pressure 108/53. HEART: Regular rate. LUNGS: Poor inspiratory effort. ABDOMEN: Distended and soft. She has an NG tube. LOWER EXTREMITIES: No edema on the blood work. LABORATORY DATA: White count is 11.54, hemoglobin is 10, and hematocrit 29.2. Potassium was 2.7 this morning. Glucose 170. The urine culture is showing E coli, sensitive to ceftriaxone. Chest x-ray done today shows a stable examination, bibasilar subsegmental atelectasis. Abdominal x-ray done yesterday showed NG-tube is in the stomach. ASSESSMENT: 1. Status post cardiac arrest. 2. Acute respiratory failure, on ventilator. 3. Non-ST elevation myocardial infarction. 4. Acute stroke. 5. History of hemorrhagic stroke this past year. 6. Seizure disorder. 7. Urinary tract infection with E coli. 8. Diabetes type 2. 9. History of hypertension. 10. Hypokalemia. PLAN: At present time is to we are going to replace potassium and repeat it later on. Continue Rocephin 1 g daily for UTI. She is on NG tube feedings. Sliding scale with insulin. Continue amiodarone drip. Continue statins. Continue Keppra 1000 mg twice a day. Continue IV Protonix. We will monitor close for any bleeding. The patient will need a cardiac cath when stable. She also will require an ICD or LifeVest upon discharge as per ripsaw grader. The overall prognosis of the patient remains guarded. I spent more than 35 minutes examining the patient, reviewing the lab results, x-rays, overnight events, and adjusting medications. MD FAMILIA Pollard/LUANA /[id number]
--- NOTE | 2018-09-15 14:20 | Progress Note ---
DATE: 09/15/2018 Cardiology Progress Note SUBJECTIVE: The patient underwent extubation trial this morning, however, suddenly became unresponsive and was not over reading vent, neurologic workup undergoing. Her pressure also dropped suddenly and is back on Levophed. No more runs of ventricular tachycardia on telemetry. OBJECTIVE: VITAL SIGNS: Temperature afebrile, pulse 64, respiratory rate 12, blood pressure 117/69, saturating 100% on mechanical ventilation. GENERAL: Elderly female, in no acute distress. CARDIOVASCULAR: Regular rate and rhythm. No murmurs, rubs, or gallops. LUNGS: Mechanical breath sounds bilaterally, coarse breath sounds at the bases. ABDOMEN: Soft, nontender, nondistended. NEURO AND PSYCH: The patient is intubated and sedated. INPATIENT MEDICATIONS: Reviewed. LABORATORY DATA: Reviewed. Potassium remains low at 2.7. IMAGING DATA: Reviewed. ASSESSMENT: 1. Sustained ventricular tachycardia and ventricular fibrillation resulting in cardiac arrest, status post CPR and intubation. 2. Nfo-ZE-zoyrdhiny myocardial infarction. 3. Acute on chronic systolic heart failure exacerbation. 4. History of cerebrovascular accident, hemorrhagic, recent. PLAN: Concern for VT, VFib arrest in the setting of non-ST elevation MT. Ideally would like to anticoagulate patient with full-dose Lovenox or IV heparin. However, given history of recent intracranial bleeding, we will need to get clearance from Neurology regarding risk of intracranial hemorrhage. The patient also needs coronary angiography and possible intervention, but again would need clearance from Neurology regarding long-term use of dual antiplatelet therapy. Remains in sinus rhythm currently. Continue IV amiodarone. We will also add p.o. amiodarone 400 mg twice a day today. Please correct her potassium aggressively, remains critically low at 2.7. Thank you for this consult. We will continue to follow very closely. MD CAROLINA Cristobal/LUANA /[id number]
[2018-09-15 14:21] LABS: ABG HCO3 21 mmol/L (23-28); ABG PCO2 30 mmHg (41-51); ABG PH 7.47 (7.31-7.41); ABG PO2 174 mmHg (80-105)
[2018-09-15] MEDS: CEFTRIAXONE SOD 1 GM/NS 50 ML 50 ML IV SCH (17:11)
[2018-09-15] MEDS: NOREPINEPHRINE 8 MG/D5W 250 ML 250 ML IV SCH ×2 (17:30→23:47)
[2018-09-15] MEDS ORDERED: HEPARIN 25,000 UNIT 1,100 UNIT in DEXTROSE 5% 250ML 250 ML IV SCH (18:00)
[2018-09-15] MEDS ORDERED: HEPARIN SOD (PORCINE) 5,000 UNIT/ML VIAL IV ONE (18:00)
[2018-09-15] MEDS: AMIODARONE HCL 200 MG TAB PO SCH (19:09)
[2018-09-15] MEDS: HEPARIN 25,000 UNIT 1,100 UNIT in DEXTROSE 5% 250ML 250 ML IV SCH (19:10)
--- NOTE | 2018-09-15 19:12 | NUR ---
Report received. Assumed care. Assessment done. See interventions. Orally intubated with 7.5 FR ETT secured at 23 cm at the lip. Vent settings: TV 480, FIO2 40%, PRVC 10, & PEEP 5 cm. IV NS @ 100ml/hr, Amiodarone @ 0.5mg/hr, Heparin @ 1100 units/hr, Propofol @ 18 mg/kg/min. Family @ bedside. Questions answered.
[2018-09-15] MEDS: SIMVASTATIN 20 MG TAB PO SCH (22:11)
[2018-09-16] VITALS (26 sets, daily range): BP systolic 93–151; BP diastolic 53–112
[2018-09-16] MEDS: INSULIN REGULAR, HUMAN 100 UNIT/1 ML 3ML VIAL SQ SCH ×5 (00:04→23:50)
--- NOTE | 2018-09-16 02:09 | NUR ---
PTT 200.1. Heparin held.
[2018-09-16] MEDS: SODIUM CHLORIDE 0.9% 1000ML 1,000 ML IV SCH ×2 (04:20→12:07)
[2018-09-16 05:13] LABS: BASOPHILS # (AUTO) 0.1 (0.0-0.1); BASOPHILS % 0.5 % (0.0-1.0); EOSINOPHILS # (AUTO) 0.4 (0.0-0.4); EOSINOPHILS % 3.4 % (0.0-6.0); HEMATOCRIT 27.8 % (34.2-44.1); HEMOGLOBIN 9.3 g/dL (12.0-16.0); LYMPHOCYTES % 24.7 % (18.0-39.1); MEAN CORPUSCULAR HGB CONC 33.5 g/dL (31-35); MEAN CORPUSCULAR VOLUME 92.7 fL (81-99); MONOCYTES # (AUTO) 0.8 (0.2-0.8); MONOCYTES % 6.5 % (4.4-11.3); NEUTROPHILS # (AUTO) 7.8 (2.1-6.9); NEUTROPHILS % 64.2 % (38.7-80.0); PLATELET COUNT 179 x10e3/uL (140-360); RED CELL DISTRIBUTION WIDTH 13.4 % (11.7-14.4)
[2018-09-16 05:37] LABS: ANION GAP 10.9 mmol/L (8-16); BLOOD UREA NITROGEN 12 mg/dL (7-26); BUN/CREATININE RATIO 16 (6-25); CARBON DIOXIDE 23 mmol/L (22-29); CHLORIDE 110 mmol/L (98-107); CREATININE, SERUM 0.77 mg/dL (0.57-1.11); EST GLOMERULAR FILTRATION RATE > 60 ML/MIN (60-); GLUCOSE 143 mg/dL (74-118); SODIUM 141 mmol/L (136-145)
[2018-09-16 05:41] LABS: CALCIUM 6.9 mg/dL (8.4-10.2); POTASSIUM 2.9 mmol/L (3.5-5.1)
--- NOTE | 2018-09-16 05:44 | NUR ---
Call to Dr. Brantley re: critical labs. Awaiting call back.
--- NOTE | 2018-09-16 06:24 | NUR ---
Call again to Dr. Brantley re: critical labs. Awaiting call back.
--- NOTE | 2018-09-16 06:31 | Diagnostic Imaging Report ---
EXAMINATION: CHEST SINGLE (PORTABLE) INDICATION: CHF. COMPARISON: 09/15/2018. FINDINGS: LINES/TUBES:Endotracheal tube low in position with distal tip approximately 1.5 cm proximal to the alejandra. NG tube extends below the diaphragm with tip and side-port in the stomach with distal tip projected on the esophagogastric junction region.. Right IJ central venous catheter with distal tip projected on the high right atrium. LUNGS:The lung volumes are low. No focal consolidation. Mild bibasilar subsegmental atelectasis. PLEURA:No pleural effusion or pneumothorax. MEDIASTINUM:The cardiomediastinal silhouette is mildly enlarged, unchanged. BONES/SOFT TISSUES:No acute osseous injury. ABDOMEN:No free air under the diaphragm. IMPRESSION: Stable examination, no significant interval change. Recommend withdrawing ET tube 2 cm. Signed by: Dr. Megan Dyer M.D. on 09/16/2018 6:28 AM
[2018-09-16] MEDS ORDERED: POTASSIUM CHLORIDE 20MEQ/100ML 300 ML IV ONE (07:30)
[2018-09-16] MEDS: LEVETIRACETAM ORAL SOLUTION 500 MG/5 ML SOLN PEG SCH ×2 (08:23→16:36)
[2018-09-16] MEDS: PANTOPRAZOLE 40 MG 10ML VIAL IV SCH ×2 (08:23→16:36)
[2018-09-16] MEDS: CYANOCOBALAMIN 1,000 MCG TAB PO SCH (08:23)
[2018-09-16] MEDS: AMIODARONE HCL 200 MG TAB PO SCH ×2 (08:23→16:36)
[2018-09-16] MEDS: ASPIRIN 81 MG CHEW TAB NG SCH (08:23)
--- NOTE | 2018-09-16 09:40 | NUR ---
PT EXTUBATED AT THIS TIME AT BEDSIDE
[2018-09-16 10:26] LABS: ABG HCO3 21 mmol/L (23-28); ABG PCO2 32 mmHg (41-51); ABG PH 7.42 (7.31-7.41); ABG PO2 161 mmHg (80-105)
--- NOTE | 2018-09-16 10:55 | Progress Note ---
DATE: 09/16/2018 SUBJECTIVE: Ms. Dorsey is a 68-year-old female with history of hemorrhagic stroke in June 2018, hypertension, diabetes, hyperlipidemia, came to the emergency room because she started getting confused, having some twitching of the right upper extremity. MRI show a new acute stroke and she was admitted to the floor. She became agitated, went into ventricular tachycardia and cardiac arrest. She received CPR. She was orally intubated and transferred to ICU. Cardiac enzymes came back positive for non-STEMI. Yesterday, Doppler of the upper extremity showed DVT, so the patient was started on heparin drip. PHYSICAL EXAMINATION: GENERAL: Today, she is awake. She is alert. She opens her eyes. She moves her head. She seems to understand what I am asking her. VITAL SIGNS: Temperature is 97.5 and blood pressure 112/53. HEART: Regular rate. LUNGS: Poor inspiratory effort. ABDOMEN: Soft. LABORATORY DATA: On the blood work; white count is 12.08, hemoglobin is 9.3, and hematocrit is 27.8. Potassium this morning was 2.9, creatinine 0.77, and glucose 143. Urine culture is showing E coli that is sensitive to Rocephin and had a chest x-ray done today that shows stable examination with no significant interval change. ASSESSMENT: 1. Status post cardiac arrest. 2. Acute respiratory failure, on ventilator. 3. Zfw-IJ-lmrbcmarx myocardial infarction. 4. Acute stroke. 5. History of hemorrhagic stroke. 6. Seizure disorder. 7. Urinary tract infection with Escherichia coli. 8. Diabetes type 2. 9. History of hypertension. 10. Hypokalemia. PLAN: At present time is to continue IV antibiotics. Replace potassium. Monitor BMP. Continue Keppra 1000 mg twice a day. Continue IV Protonix. She was started on IV heparin for DVT of the upper extremity and for her non-STEMI. The plan now is to try to wean her off as tolerated from ventilator. All this was discussed with the patient and daughter at bedside. All questions were answered to satisfaction. I spent more than 35 minutes examining the patient, reviewing lab results, x-rays, overnight events, and adjusting the medications. MD FAMILIA Pollard/LUANA /[id number]
[2018-09-16] MEDS: CEFTRIAXONE SOD 1 GM/NS 50 ML 50 ML IV SCH (12:07)
[2018-09-16] MEDS: HEPARIN 25,000 UNIT 1,100 UNIT in DEXTROSE 5% 250ML 250 ML IV SCH (18:45)
--- NOTE | 2018-09-16 19:00 | NUR ---
Report received. Assumed care. Assessment done. See interventions. O2 per NC @ 4L. IVs: NS @ 100ml/hr & Heparin @ 700 units/hr. Glucerna 1.2 TF @ 10 ml/hr.
[2018-09-16] MEDS: SIMVASTATIN 80 MG TAB PO SCH (21:20)
[2018-09-17] VITALS (29 sets, daily range): BP systolic 113–187; BP diastolic 62–121
--- NOTE | 2018-09-17 | NUR ---
PTT 58.7. No changes in Heparin drip.
[2018-09-17] MEDS ORDERED: AMIODARONE HCL 900 MG in DEXTROSE 5% 500ML 500 ML IV SCH (00:15)
--- NOTE | 2018-09-17 00:23 | NUR ---
NPO for heart cath in AM. Tube feeding off.
--- NOTE | 2018-09-17 00:38 | Progress Note ---
DATE: 09/16/2018 Cardiology Progress Note SUBJECTIVE: The patient is extubated, still little confused. OBJECTIVE: VITAL SIGNS: Temperature afebrile, blood pressure 110/82, respiratory rate 16, heart rate 85, and saturating 96% on nasal cannula. GENERAL: Elderly female, mildly confused, in no acute distress. CARDIOVASCULAR: Regular rate and rhythm. No murmurs, rubs, or gallops. LUNGS: Clear to auscultation bilaterally. ABDOMEN: Soft, nontender, and nondistended. NEURO AND PSYCH: The patient is disoriented. INPATIENT MEDICATIONS: Reviewed. TELEMETRY DATA: Reviewed, normal ventricular tachycardia. IMAGING DATA: Reviewed. ASSESSMENT AND PLAN: 1. Sustained ventricular tachycardia and cardiac arrest. 2. Non-ST elevation myocardial infarction. 3. Acute on chronic systolic heart failure, ejection fraction 35% to 40%. 4. Recent stroke. PLAN: Plan for coronary angiography tomorrow. Continue IV heparin in the meantime. We will get okay from Neurology for starting dual antiplatelet therapy in case the patient needs stenting. Continue cardiovascular medications otherwise. Thank you for this consult. We will continue to follow. MD CAROLINA Cristobal/LUANA /[id number]
[2018-09-17] MEDS: SODIUM CHLORIDE 0.9% 1000ML 1,000 ML IV SCH ×3 (01:35→13:03)
[2018-09-17] MEDS: HEPARIN 25,000 UNIT 1,100 UNIT in DEXTROSE 5% 250ML 250 ML IV SCH (01:36)
[2018-09-17] MEDS ORDERED: HEPARIN 25,000 UNIT DRIP IV ONE (01:37)
--- NOTE | 2018-09-17 04:44 | NUR ---
Complete bed bath given. Partial linens changed.
[2018-09-17 05:02] LABS: BASOPHILS % 0.4 % (0.0-1.0); EOSINOPHILS # (AUTO) 0.4 (0.0-0.4); EOSINOPHILS % 3.7 % (0.0-6.0); HEMOGLOBIN 9.4 g/dL (12.0-16.0); LYMPHOCYTES # (AUTO) 1.9 (1.0-3.2); LYMPHOCYTES % 17.6 % (18.0-39.1); MEAN CORPUSCULAR HEMOGLOBIN 30.5 pg (28-32); MEAN CORPUSCULAR HGB CONC 32.4 g/dL (31-35); MEAN CORPUSCULAR VOLUME 94.2 fL (81-99); MONOCYTES # (AUTO) 0.8 (0.2-0.8); MONOCYTES % 7.3 % (4.4-11.3); NEUTROPHILS # (AUTO) 7.6 (2.1-6.9); NEUTROPHILS % 70.4 % (38.7-80.0); PLATELET COUNT 149 x10e3/uL (140-360); RED BLOOD COUNT 3.08 x10e6/uL (3.6-5.1); RED CELL DISTRIBUTION WIDTH 13.6 % (11.7-14.4)
[2018-09-17 05:31] LABS: ANION GAP 11.5 mmol/L (8-16); BLOOD UREA NITROGEN 7 mg/dL (7-26); BUN/CREATININE RATIO 11 (6-25); CALCIUM 7.4 mg/dL (8.4-10.2); CARBON DIOXIDE 23 mmol/L (22-29); CHLORIDE 109 mmol/L (98-107); CREATININE, SERUM 0.64 mg/dL (0.57-1.11); EST GLOMERULAR FILTRATION RATE > 60 ML/MIN (60-); GLUCOSE 122 mg/dL (74-118); POTASSIUM 3.5 mmol/L (3.5-5.1); SODIUM 140 mmol/L (136-145)
[2018-09-17] MEDS: INSULIN REGULAR, HUMAN 100 UNIT/1 ML 3ML VIAL SQ SCH ×3 (06:00→18:00)
--- NOTE | 2018-09-17 06:13 | Diagnostic Imaging Report ---
EXAMINATION: CHEST SINGLE (PORTABLE) INDICATION: Shortness of breath. COMPARISON: 09/16/2018. FINDINGS: LINES/TUBES:Endotracheal tube has been removed. NG tube extends below the diaphragm with tip and side-port in the stomach with distal tip projected on the esophagogastric junction region.. Right IJ central venous catheter with distal tip projected on the high right atrium. LUNGS:The lung volumes are low. No focal consolidation. Mild bibasilar subsegmental atelectasis. PLEURA:No pleural effusion or pneumothorax. MEDIASTINUM:The cardiomediastinal silhouette is mildly enlarged, unchanged. BONES/SOFT TISSUES:No acute osseous injury. ABDOMEN:No free air under the diaphragm. IMPRESSION: Interval removal of ET tube, otherwise stable examination. Signed by: Dr. Megan Dyer M.D. on 09/17/2018 6:09 AM
--- NOTE | 2018-09-17 08:00 | NUR ---
Spoke to Dr. Brantley regarding dc plan. CM asked about LTAC eval. states pt is going for angiogram today. Will consider LTAC once pt stabilizes, possibly Thursday.
[2018-09-17] MEDS: CYANOCOBALAMIN 1,000 MCG TAB PO SCH (09:00)
[2018-09-17] MEDS: ASPIRIN 81 MG CHEW TAB NG SCH (09:00)
[2018-09-17] MEDS: LEVETIRACETAM ORAL SOLUTION 500 MG/5 ML SOLN PEG SCH ×2 (09:00→17:00)
[2018-09-17] MEDS: AMIODARONE HCL 200 MG TAB PO SCH ×2 (09:00→17:00)
--- NOTE | 2018-09-17 09:15 | NUR ---
ST Note: Attempted to complete bedside swallow eval but pt NPO for cardiac cath. Will f/u later today.
[2018-09-17] MEDS: PANTOPRAZOLE 40 MG 10ML VIAL IV SCH ×2 (09:39→16:34)
--- NOTE | 2018-09-17 10:41 | Progress Note ---
DATE: 09/17/2018 SUBJECTIVE: Ms. Dorsey is a 68-year-old female with history of hemorrhagic stroke in June 2018, diabetes, hypertension, hyperlipidemia, came to the emergency room with some confusion and twitching of the right upper extremity. MRI show a new acute stroke. She was on the floor. She became agitated when developed ventricular tachycardia and cardiac arrest. She had to receive CPR and was orally intubated, transfer to ICU, ruled in for a non-ST OH. Yesterday, she was successfully extubated. She also was found to have a DVT of the upper extremity, so she was started on heparin drip at present time. The plan is probably today for her to go for angiogram. PHYSICAL EXAMINATION: GENERAL: She is orally extubated. She is awake. She is alert. VITAL SIGNS: Temperature is 98.7, blood pressure is 148/81. HEART: Regular rate. LUNGS: Poor inspiratory effort. ABDOMEN: Distended and soft. LABORATORY DATA: On the blood work; white count is 10.77, hemoglobin is 9.4, hematocrit 29. Potassium is 3.5 today. Creatinine is 0.64, glucose is 122. Chest x-ray done today shows interval removal of ET tube. Otherwise, stable examination. ASSESSMENT: 1. Status post cardiac arrest. 2. Acute respiratory failure, status post extubation. 3. Non-ST myocardial infarction. 4. Acute stroke. 5. Left upper extremity deep venous thrombosis. 6. History of hemorrhagic stroke. 7. Seizure disorder. 8. Urinary tract infection with Escherichia coli. 9. Diabetes type 2. 10. History of hypertension. 11. Hypokalemia, improving. PLAN: At present time is apparently, patient is going to go for angiogram today. Continue Keppra 1000 mg twice a day, IV protein, IV Protonix. She is on a heparin drip for DVT and her non-ST OH. Continue sliding scale with insulin. She was successfully extubated yesterday. They continue to monitor respiratory and neuro status. The overall prognosis of the patient remains guarded. I spent more than 35 minutes examining the patient, reviewing overnight event, lab result, x-ray, and discussing plan of care with the patient and family at bedside. Katharine Brantley MD FAMILIA/MODL /[id number]
[2018-09-17] MEDS: CEFTRIAXONE SOD 1 GM/NS 50 ML 50 ML IV SCH (12:03)
--- NOTE | 2018-09-17 14:00 | NUR ---
ST Note: Pt still NPO for procedure. Will f/u later today time permitting.
[2018-09-17] MEDS ORDERED: MIDAZOLAM HCL 2 MG/2 ML VIAL ONE (16:31)
[2018-09-17] MEDS ORDERED: FENTANYL CITRATE/PF 100MCG/2 ML INJ ONE (16:31)
[2018-09-17] MEDS ORDERED: HEPARIN SOD/SOD CHLORIDE 2,000 ML ONE (16:31)
[2018-09-17] MEDS ORDERED: LIDOCAINE HCL 2% LOCAL 20 ML VIAL ONE (16:31)
[2018-09-17] MEDS ORDERED: SODIUM CHLORIDE 0.9% 1000ML 1,000 ML ONE (16:32)
[2018-09-17] MEDS ORDERED: IOPAMIDOL 300MG/ML 100 ML INFUS..BTL IV ONE (16:32)
--- NOTE | 2018-09-17 16:41 | NUR ---
ST Note: Pt remains NPO for procedure. RN, Aileen, unsure when procedure will be completed. Bedside swallow eval deferred for today. On-call weekend Speech Pathologist to see pt tomorrow 09/18/18 in the AM.
[2018-09-17] MEDS ORDERED: BIVALRIUDIN 250 MG/VIAL VIAL IV ONE (17:37)
[2018-09-17] MEDS ORDERED: SODIUM CHLORIDE 0.9% 50ML 50 ML ONE (17:38)
[2018-09-17] MEDS ORDERED: ASPIRIN 325 MG TAB ONE (17:53)
[2018-09-17] MEDS ORDERED: PRASUGREL 10 MG TAB ONE (17:53)
--- NOTE | 2018-09-17 18:30 | NUR ---
Report provided to Aileen AMADOR, review of procedural findings and medications given. Patient drowsy, easily aroused. maintains airway and room air saturations of 98-99%. No gross issues of pressure, pain, pallor or dysrhythmia. IV site to right IJ patent with NS 0.9% at KVO by dial-flow and angiomax @ 1.75mg/kg/hr . patient hemodynamically stable with hemostasis right groin dressing CDI w/o s/s of bleeding. 14fr NGT placed past right nare after teaching w/o gross distress. placement confirmed w/ air bolus and pt speech. medications given per order. patient transferred to bed max assist w/o incident. transported to ICU 196 on monitor - cgf procedure: Stent to mid LAD Sheath puller: Dr Abebe Flores Proglide right groin Meds Given Intra-Procedure Sedatives Versed - 1 mg Fentanyl - 25 mcg Anticoagulants Angiomax bolus w/ gtt Fluids Input - 150 Output - wayne Contrast Isovue 300 - 70ml estimate Other Meds Effient 60mg per NGT Aspirin 325mg per NGT
--- NOTE | 2018-09-17 19:30 | NUR ---
Received patient calmly asleep in bed, no complaints raised, daughter present a the bedside
[2018-09-17] MEDS: SIMVASTATIN 80 MG TAB PO SCH (21:40)
--- NOTE | 2018-09-17 23:00 | NUR ---
Patient awake, alert but confused with hallucinations. on Close observation
[2018-09-18] VITALS (18 sets, daily range): BP systolic 104–170; BP diastolic 49–96
--- NOTE | 2018-09-18 01:30 | NUR ---
Patient agitated, trying to get out of bed, insists on going home, Geodon administered, reassured
[2018-09-18] MEDS: ZIPRASIDONE 20 MG VIAL IM PRN ×2 (01:40→22:47)
[2018-09-18] MEDS: WATER STERILE 10 ML VIAL INJ PRN ×2 (01:40→22:47)
[2018-09-18] MEDS: SODIUM CHLORIDE 0.9% 1000ML 1,000 ML IV SCH ×2 (01:47→16:00)
--- NOTE | 2018-09-18 03:00 | NUR ---
Patient calmly asleep
--- NOTE | 2018-09-18 05:00 | NUR ---
PTT 59.9 , no changes
[2018-09-18] MEDS: INSULIN REGULAR, HUMAN 100 UNIT/1 ML 3ML VIAL SQ SCH ×5 (06:00→20:22)
[2018-09-18] MEDS: AMIODARONE HCL 200 MG TAB PO SCH ×2 (08:10→16:31)
[2018-09-18] MEDS: CYANOCOBALAMIN 1,000 MCG TAB PO SCH (08:10)
[2018-09-18] MEDS: PANTOPRAZOLE 40 MG 10ML VIAL IV SCH ×2 (08:10→16:31)
[2018-09-18] MEDS: LEVETIRACETAM ORAL SOLUTION 500 MG/5 ML SOLN PEG SCH ×2 (08:10→16:31)
[2018-09-18] MEDS: ASPIRIN 81 MG CHEW TAB NG SCH (08:10)
--- NOTE | 2018-09-18 11:32 | Progress Note ---
DATE: Cardiology Progress Note SUBJECTIVE: The patient is confused, however, she denies any complaints. OBJECTIVE: VITAL SIGNS: Temperature 97.5, pulse 88, respiratory rate 18, blood pressure 107/96, oxygen saturation 100% on 4 L nasal cannula. GENERAL: Alert and oriented x1, resting comfortably in the bed. Daughter at the bedside. Does not appear to be in acute distress. Getting an EEG this morning. NECK: Supple. No JVD noted. CARDIOVASCULAR: Regular rate and rhythm. Systolic murmur present. LUNGS: Clear to auscultation throughout. No wheezing. No rhonchi or crackles. ABDOMEN: Soft, nontender. CARDIOVASCULAR MEDICATIONS: Amiodarone 400 mg p.o. b.i.d., aspirin 81 mg p.o. daily, simvastatin 80 mg p.o. h.s. LABORATORY DATA: No new labs today. TELEMETRY: Normal sinus rhythm. IMPRESSION: 1. Sustained VT and cardiac arrest. 2. Ygm-RT-tcampcrnp myocardial infarction. 3. Acute on chronic systolic heart failure with ejection fraction 35% to 40%. 4. Recent stroke. 5. Coronary artery disease with left anterior descending artery percutaneous coronary intervention yesterday. PLAN: Continue with the above listed cardiac medication. Transition from IV heparin to dual anti-platelet therapy. Continue current telemetry monitoring. We will continue to follow this patient very closely. Dictated by Iva Langston NP MD DESTINEE BarkerV/LUANA /[id number]
[2018-09-18] MEDS: CEFTRIAXONE SOD 1 GM/NS 50 ML 50 ML IV SCH (11:46)
[2018-09-18] MEDS: CLOPIDOGREL BISULFATE 75 MG TAB PO SCH (11:46)
[2018-09-18] MEDS: RIVAROXABAN 20 MG TABLET PO SCH (16:31)
--- NOTE | 2018-09-18 17:11 | NUR ---
RECEIVED PT FROM ICU ON STRETCHER. PT AOOX1. CONFUSED. PT FAMILY AT BEDSIDE. BED ALARM IS ON. BED IS AT THE LOWEST POSITION AND LOCKED. FALL PRECAUTIONS IMPLEMENTED. CALL LIGHT WITH IN EASY REACH. PT DENIES NEEDS AT THIS TIME.
--- NOTE | 2018-09-18 19:00 | NUR ---
BEDSIDE SHIFT REPORT GIVEN TO THE CART ATTENDANT RN. PT FAMILY AT BEDSIDE. PT DENIED FURTHER NEEDS.
--- NOTE | 2018-09-18 20:19 | NUR ---
ASSISTED PT TO BEDSIDE COMMODE.PT URINATED.ASSISTED PT BACK TO BED.BED POSITIONED IN THE LOWEST/LOCKED.BEDALARM ACTIVATED.DAUGHTER AT BEDSIDE.CALL LIGHT WITHIN EASY REACH.
[2018-09-18] MEDS: SIMVASTATIN 80 MG TAB PO SCH (20:39)
[2018-09-19] VITALS (7 sets, daily range): BP systolic 123–149; BP diastolic 56–99
[2018-09-19] MEDS: SODIUM CHLORIDE 0.9% 1000ML 1,000 ML IV SCH ×2 (06:41→13:36)
--- NOTE | 2018-09-19 07:12 | NUR ---
REPORT GIVEN TO ONCOMING NURSE,WALKING ROUNDS MADE.PT RESTING IN BED WITH NO S/S OF DISTRESS.BED ALARM ACTIVATED.
[2018-09-19] MEDS: INSULIN REGULAR, HUMAN 100 UNIT/1 ML 3ML VIAL SQ SCH ×4 (07:30→21:00)
[2018-09-19] MEDS: CYANOCOBALAMIN 1,000 MCG TAB PO SCH (09:37)
[2018-09-19] MEDS: LEVETIRACETAM ORAL SOLUTION 500 MG/5 ML SOLN PEG SCH ×2 (09:37→16:27)
[2018-09-19] MEDS: AMIODARONE HCL 200 MG TAB PO SCH ×2 (09:37→16:27)
[2018-09-19] MEDS: ASPIRIN 81 MG CHEW TAB NG SCH (09:37)
[2018-09-19] MEDS: PANTOPRAZOLE 40 MG 10ML VIAL IV SCH ×2 (09:37→16:27)
[2018-09-19] MEDS: CLOPIDOGREL BISULFATE 75 MG TAB PO SCH (09:37)
--- NOTE | 2018-09-19 12:07 | Operative Report ---
DATE OF PROCEDURE: 09/17/2018 SURGEON: Francisco Javier Lomas MD INDICATIONS: Coronary artery disease, ventricular fibrillation, cardiac arrest with zxz-YA-xlagqwr elevation myocardial infarction. PROCEDURES PERFORMED: 1. Left heart catheterization, selective coronary angiography. 2. PTCA and stent placement of the proximal left anterior descending artery. 3. Deployment of right groin Perclose. COMPLICATIONS: None. BLOOD LOSS: Minimal. RECOMMENDATIONS: Dual antiplatelet therapy for at least 6 months. DESCRIPTION OF PROCEDURE: Access was obtained in the right femoral artery. A 6-[place]icar[place]uan sheath was placed. Diagnostic coronary angiogram revealed 80% stenosis in the proximal left anterior descending artery, diagonal artery 50% stenosis. Circumflex right coronary artery and remaining left anterior descending artery had moderate 30% to 50% stenosis. A decision was made to intervene on the left anterior descending artery. The patient received intravenous Angiomax for anticoagulation as well as oral Effient and aspirin. The left main was cannulated using an XP 3.0 6-[place]aguan guiding catheter. A short wire was advanced across the lesion for support, 2 mm predilatation, following which a single 2.5 x 18 mm Resolute Alberto stent was deployed at 14 atmospheres. Excellent end result, less than 10% residual stenosis, JASPAL-3 flow. No complications. Right groin repaired using Perclose closure device. The patient was transferred to ICU in stable condition. Francisco Javier Lomas MD KSB/MODL /[id number]
[2018-09-19] MEDS: CEFTRIAXONE SOD 1 GM/NS 50 ML 50 ML IV SCH (12:30)
--- NOTE | 2018-09-19 12:57 | Progress Note ---
DATE: 09/19/2018 Cardiology progress note SUBJECTIVE: The patient reports that she feels much better. She has no complaints this morning. Denies any chest pain. Does endorse some shortness of breath. OBJECTIVE: VITAL SIGNS: Temperature 98.2, pulse 82, respiratory rate 19, blood pressure 146/67, and oxygen saturation 95% on room air. GENERAL: Alert and oriented x2, resting in the chair. Daughter at the bedside. Does not appear to be in any acute distress. NECK: Supple. No JVD noted. CARDIOVASCULAR: Regular rate and rhythm. Systolic murmur present. LUNGS: Clear to auscultation throughout. No wheezing. No rhonchi or crackles. ABDOMEN: Soft, nontender. EXTREMITIES: Left upper extremity with 2+ nonpitting edema. CARDIOVASCULAR MEDICATIONS: Plavix 75 mg p.o. daily, amiodarone 400 mg p.o. b.i.d., aspirin 81 mg p.o. daily, simvastatin 80 mg p.o. at bedtime, and Xarelto 20 mg p.o. daily. LABORATORY DATA: No new labs today. Telemetry is sinus rhythm. IMPRESSION: 1. Sustained ventricular tachycardia and cardiac arrest. 2. Non-ST elevation myocardial infarction. 3. Acute on chronic systolic heart failure, ejection fraction 35-40%. 4. Recent stroke. 5. Coronary artery disease, status post left anterior descending artery percutaneous coronary intervention on 09/17/2018. 6. Left upper extremity deep venous thrombosis. PLAN: Continue with dual anti-platelet therapy and also Xarelto given the above listed conditions. Continue to monitor this patient for risk of bleeding. Maintain on telemetry. We will continue to follow. Dictated by Iva Langston NP MD DESTINEE BarkerV/LUANA /[id number]
--- NOTE | 2018-09-19 15:20 | NUR ---
Visit made by the Spiritual Care Department Pastoral Visitor, Nghia Cassidy. PV provided pastoral presence, communion, prayer, hospitality, and supportive listening. Pastoral Visitor informed pt/family of the scope of [employer] and availability. GAETANO EPSTEIN Software Client Architect Spiritual Care Department O: [phone] Pager: [phone] ([phone] number calling from)
--- NOTE | 2018-09-19 16:13 | Electroencephalogram ---
DATE OF STUDY: 09/18/2018 REQUESTING PHYSICIAN: REQUESTING PHYSICIAN: Nerissa Walton M.D. PATIENT HISTORY: This 68-year-old woman with a history of possible seizure is having an EEG for evaluation of epileptiform activity. The patient is taking the following medications which might affect the EEG: Keppra. TECHNIQUE: This is a routine, portable EEG, recorded digitally, using the International 10/20 electrode placement system, and done in the inpatient setting with the patient awake. The EEG is adequate for interpretation. DESCRIPTION: Well-organized, well-sustained 7-8 hertz activity is seen symmetrically over the posterior head regions. No focal or epileptiform activity is observed. Sleep is not recorded. Photic stimulation is not performed. Hyperventilation does produce a slowing response. INTERPRETATION: This EEG is abnormal due to slowing of background electrocortical activity compatible with a mild generalized encephalopathy. No epileptiform discharges are seen. Clinical correlation is recommended. Nerissa Walton MD CP/LUANA /[id number] MTDD
[2018-09-19] MEDS: RIVAROXABAN 20 MG TABLET PO SCH (16:27)
[2018-09-19] MEDS: SIMVASTATIN 80 MG TAB PO SCH (21:13)
--- NOTE | 2018-09-19 21:30 | NUR ---
care of this patient taken over by Kia Harris RN. report received at this time. patient awake, alert but confused. lying quietly in bed. no c/o pain noted. pts daughter noted at the bedside. patient/daughter instructed to call for assistance when needed.
[2018-09-20] VITALS (9 sets, daily range): BP systolic 109–152; BP diastolic 62–85
--- NOTE | 2018-09-20 | NUR ---
report given to Bruna AMADOR at this time.
[2018-09-20] MEDS: SODIUM CHLORIDE 0.9% 1000ML 1,000 ML IV SCH ×2 (03:06→23:22)
[2018-09-20] MEDS: INSULIN REGULAR, HUMAN 100 UNIT/1 ML 3ML VIAL SQ SCH ×4 (07:30→21:15)
[2018-09-20] MEDS: ASPIRIN 81 MG CHEW TAB NG SCH (09:25)
[2018-09-20] MEDS: PANTOPRAZOLE 40 MG 10ML VIAL IV SCH ×2 (09:25→17:17)
[2018-09-20] MEDS: LEVETIRACETAM ORAL SOLUTION 500 MG/5 ML SOLN PEG SCH ×2 (09:25→17:17)
[2018-09-20] MEDS: AMIODARONE HCL 200 MG TAB PO SCH ×2 (09:25→17:17)
[2018-09-20] MEDS: CLOPIDOGREL BISULFATE 75 MG TAB PO SCH (09:25)
[2018-09-20] MEDS: CYANOCOBALAMIN 1,000 MCG TAB PO SCH (09:26)
--- NOTE | 2018-09-20 10:02 | Progress Note ---
DATE: 09/20/2018 SUBJECTIVE: Ms. Dorsey is a 68-year-old female with history of hemorrhagic stroke in June 2018, hypertension, hyperlipidemia, diabetes, came to the emergency room because she started getting confused and having twitching of the right upper extremity. MRI show new acute stroke. The patient was admitted to the hospital, developed ventricular tachycardia and cardiac arrest. She has received CPR and she was orally intubated and transferred to ICU. She ruled in for a non-STEMI. During the weekend, she improved. She was transferred back to the floor on telemetry. She was found to have an upper extremity DVT and she was started on anticoagulation at present time. PHYSICAL EXAMINATION: GENERAL: She is awake. She is oriented to person, but she is very confused regarding where she is and she is talking about the past. VITAL SIGNS: Temperature is 97.3, blood pressure is 124/85. HEART: Regular rate. LUNGS: Poor inspiratory effort. ABDOMEN: Soft. LABORATORY DATA: On the blood work, white count is 10.77, hemoglobin is 9.4, hematocrit is 29, and blood sugar 138. Urine culture is showing E coli. ASSESSMENT: 1. Status post cardiac arrest. 2. Acute respiratory failure, status post extubation. 3. Jsa-VV-meovaauar myocardial infarction. 4. Coronary artery disease, status post stent. 5. Acute stroke. 6. Left upper extremity deep vein thrombosis. 7. History of hemorrhagic stroke. 8. Seizure disorder. 9. Urinary tract infection with Escherichia coli. 10. Diabetes type 2. 11. Hypokalemia, resolved. PLAN: At present time, the patient had an angiogram and had a stent placed. She is on Keppra 1000 mg twice a day, IV antibiotics. She was started on dual platelet anticoagulation and Xarelto. Continue PT/OT. Continue to monitor respiratory status. ADA diet. Sliding scale with insulin. We will consider LTAC evaluation for her to continue her treatment. I spent more than 30 minutes examining the patient, reviewing overnight event, lab results, and discussing plan of care with her and her daughter at bedside. The overall prognosis of the patient remains guarded. MD FAMILIA Pollard/MODL /[id number]
--- NOTE | 2018-09-20 12:20 | NUR ---
EDUCATED ABOUT IMM, SIGNED, FILED IN CHART, WITH COPY LEFT WITH FAMILY AT BEDSIDE.
--- NOTE | 2018-09-20 15:41 | NUR ---
Nutrition Follow-up Note RD Recommendation(s) for Physician: - Continue current diet as ordered Plan of Care: RD following, monitoring for tolerance and adequacy Nutrition reason for involvement: Follow up RD Assessment 09/20 Pt was discussed during AM rounds. Per RN, pt was very confused. Visited pt in the room. Daughter on bedside with pt. Per daughter, pt has had good appetite. No GI complains noted. LBM 09/20. No chewing or swallowing difficulty noted. Daughter has no other question at this time. 09/14- 68yo F, who was admitted for CVA. Pt with hx of hemorrhagic stroke in June of this year, which affected her speech, but not movement. Pt was coded for cardiac arrest this morning. The patient was resuscitated. She was intubated and transferred to the ICU. Pt was weaning off Dopamine (5mcg/min). IVF was running at 75mL/hr. NGT has been placed. Reviewed her medical records and labs. No pressure wound noted. Left TF recommendation in chart; RN is aware. Will continue to monitor and follow. Principal Problems/Diagnoses: 1. Status post cardiac arrest and CPR. 2. Acute respiratory failure, on ventilator. 3. Acute stroke. PMH: intracranial hemorrhage in June 2018, hypertension, diabetes, hyperlipidemia GI: Abdomen soft, round , non-tender Skin: no pressure wound noted Labs: (09/20) Glucose 178 H (09/14) K 2.9 L, Glucose 257 H, Ca 7.5 L Meds: insulin, Vitamin B12, Plavix, protonix, NaCl Ht: 63in Wt: 170lb; 159lb BMI: 30.1kg/m2 IBW: 115lb +/- 10% Malnutrition Evaluation (09/20/2018) The patient does not meet criteria for a specified degree of malnutrition at this time. Will re-evaluate at follow-up as appropriate. Malnutrition Evaluation (09/14/2018) Unable to evaluate at this time. Nutrition Prescription (Diet Order): ADA 1800 Estimated Nutritional Needs: Calories: 1296 1440kcal (18 20 kcal/kg/d) Weight used: CBW Protein: 72 - 108g (1-1.5g/kg/d) Weight used: CBW Diet Adequacy: meeting calorie needs, meeting protein needs Diet Education Needs Assessment: Diet education not indicated. Nutrition Care Level: low Nutrition Diagnosis: No nutrition diagnosis at this time. Goal: Patient will meet 75-100% of estimated needs by follow up Progress: Progressing Interventions: Modified diet Monitoring/Evaluation: Total energy intake, Total protein intake, Modified diet, Weight change Signed: Monse Benavides MS, RD, LD
[2018-09-20] MEDS: RIVAROXABAN 20 MG TABLET PO SCH (17:17)
[2018-09-20] MEDS: CARVEDILOL 3.125 MG TAB PO SCH (17:17)
--- NOTE | 2018-09-20 18:39 | Progress Note ---
DATE: 09/20/2018 SUBJECTIVE: No active complaints. No events. OBJECTIVE: VITAL SIGNS: She is afebrile, heart rate is 87, respirations are 18, blood pressure is 132/62, and oxygen saturation is 98% on room air. GENERAL: Well appearing, in no apparent distress. CARDIOVASCULAR: Regular rate and rhythm. LUNGS: Clear to auscultation. ABDOMEN: Soft, nontender, nondistended. EXTREMITIES: No edema. LABORATORY DATA: Reviewed. MEDICATIONS: Reviewed. IMPRESSION: 1. Sustained ventricular tachycardia, cardiac arrest. 2. Fsw-ZD-roeqyiift myocardial infarction. 3. Tdpra-wn-nzquxcq systolic congestive heart failure. 4. Cerebrovascular accident. 5. Coronary artery disease, status post percutaneous coronary intervention. 6. Left upper extremity deep venous thrombosis. RECOMMENDATIONS: Continue dual antiplatelet therapy and oral anticoagulation for above listed medical problems. Continue to monitor closely on telemetry. We will start low-dose heart failure medications. We will continue to follow along closely with you. DO NAZARIO Palmer/MODL /[id number]
--- NOTE | 2018-09-20 19:20 | NUR ---
PATIENT RECEIVED. PATIENT IS RESTING IN BED PATIENT IS ALERT BUT CONFUSE. RESP EVEN AND UNLABORED. NO ACUTE DISTRESS NOTED AT THIS TIME. TELE IN PLACE. DAUGHTER AT BED SIDE. CALL LIGHT WITHIN REACH. INSTRUCT TO CALL FOR ASSISTANCE. BED LOW/LOCKED. CONTINUE TO MONITOR CLOSELY
[2018-09-20] MEDS: SIMVASTATIN 80 MG TAB PO SCH (20:41)
[2018-09-20] MEDS: OXAZEPAM 15 MG CAP PO PRN (20:41)
[2018-09-21] VITALS (8 sets, daily range): BP systolic 98–158; BP diastolic 53–78
[2018-09-21 05:28] LABS: HEMATOCRIT 29.9 % (34.2-44.1); HEMOGLOBIN 9.9 g/dL (12.0-16.0); MEAN CORPUSCULAR HEMOGLOBIN 30.9 pg (28-32); MEAN CORPUSCULAR HGB CONC 33.1 g/dL (31-35); MEAN CORPUSCULAR VOLUME 93.4 fL (81-99); PLATELET COUNT 288 x10e3/uL (140-360); RED CELL DISTRIBUTION WIDTH 13.8 % (11.7-14.4)
[2018-09-21 05:38] LABS: ANION GAP 9.6 mmol/L (8-16); BLOOD UREA NITROGEN 5 mg/dL (7-26); BUN/CREATININE RATIO 8 (6-25); CALCIUM 8.4 mg/dL (8.4-10.2); CARBON DIOXIDE 27 mmol/L (22-29); CHLORIDE 109 mmol/L (98-107); CREATININE, SERUM 0.65 mg/dL (0.57-1.11); EST GLOMERULAR FILTRATION RATE > 60 ML/MIN (60-); GLUCOSE 115 mg/dL (74-118); SODIUM 143 mmol/L (136-145)
[2018-09-21 05:41] LABS: POTASSIUM 2.6 mmol/L (3.5-5.1)
--- NOTE | 2018-09-21 06:10 | NUR ---
PAGED DR PORTER REGARDING TO K-2.6, WAITING FOR MD TO CALL BACK
--- NOTE | 2018-09-21 06:55 | NUR ---
spoke to dr Brantley about K-2.6. New order received 60meq IV potassium and repeat K at 1800
--- NOTE | 2018-09-21 07:00 | NUR ---
BEDSIDE SHIFT REPORT RECEIVED FROM THE FASHION ILLUSTRATOR RN. PT DENIES NEEDS AT THIS TIME. PT FAMILY AT BEDSIDE. FALL PRECAUTIONS IMPLEMENTED. BED ALARM IS ON.
[2018-09-21] MEDS ORDERED: POTASSIUM CHLORIDE 20MEQ/100ML 300 ML IV ONE (07:15)
[2018-09-21] MEDS: INSULIN REGULAR, HUMAN 100 UNIT/1 ML 3ML VIAL SQ SCH ×4 (07:30→21:15)
--- NOTE | 2018-09-21 08:17 | NUR ---
Spoke to pt's daughter Libertad Braga at bedside. Informed her of inpatient rehab order. Ms. Braga states that she stays with her mom at all times during the day and does not think she would do well at a rehab hospital. Stated that her mom was going to [facility] and would like to continue going there. Choice letter signed and placed in chart. Copy to pt's daughter. Ms. Braga inquired about provider services. CM provided with provider brochures and Senior Resource guide. Left CM business card for any questions/concerns.
[2018-09-21] MEDS: PANTOPRAZOLE 40 MG 10ML VIAL IV SCH ×2 (08:52→16:25)
[2018-09-21] MEDS: LEVETIRACETAM ORAL SOLUTION 500 MG/5 ML SOLN PEG SCH ×2 (08:53→16:25)
[2018-09-21] MEDS: ASPIRIN 81 MG CHEW TAB NG SCH (08:53)
[2018-09-21] MEDS: CYANOCOBALAMIN 1,000 MCG TAB PO SCH (08:55)
[2018-09-21] MEDS: AMIODARONE HCL 200 MG TAB PO SCH ×2 (08:55→16:25)
[2018-09-21] MEDS: CLOPIDOGREL BISULFATE 75 MG TAB PO SCH (08:55)
[2018-09-21] MEDS: CARVEDILOL 3.125 MG TAB PO SCH ×2 (08:55→18:00)
--- NOTE | 2018-09-21 09:00 | NUR ---
DR LEVIN AT BEDSIDE. PER THE DR, RECHECK THE POTASSIUM LEVEL IN THE AFTERNOON AND IF POTASSIUM BELOW 3.5 THEN ADMINISTER THE 4TH DOSE DUE AT 1500.
[2018-09-21] MEDS: LISINOPRIL 2.5 MG TAB PO SCH (10:00)
--- NOTE | 2018-09-21 11:59 | Progress Note ---
DATE: 09/21/2018 Cardiology Progress Note SUBJECTIVE: The patient is feeling better. Denies any chest pain or shortness of breath. Still with dysarthria. OBJECTIVE: VITAL SIGNS: Temperature 96.4, heart rate 71, respirations 18, blood pressure is 115/59, and oxygen saturation 99% on room air. GENERAL: Well appearing, in no apparent distress. CARDIOVASCULAR: Regular rate and rhythm. LUNGS: Clear to auscultation. ABDOMEN: Soft, nontender, and nondistended. EXTREMITIES: No edema. VASCULAR: Diminished pulses. CARDIOVASCULAR MEDICATIONS: Reviewed. LABORATORY DATA: Reviewed. TELEMETRY: Monitoring revealed normal sinus rhythm. IMPRESSION: 1. Ventricular tachycardia, cardiac arrest. 2. Non-ST elevation myocardial infarction. 3. Coronary artery disease. 4. Acute on chronic systolic congestive heart failure. 5. Cerebrovascular accident. 6. Left upper extremity deep venous thrombosis. RECOMMENDATIONS: Continue dual antiplatelet therapy and oral anticoagulation. We will continue to closely monitor on telemetry. Continue to titrate low-dose heart failure medications. The patient likely will need LifeVest versus ICD at discharge. DO NAZARIO Palmer/MODL /[id number]
[2018-09-21 14:53] LABS: ANION GAP 7.8 mmol/L (8-16); BLOOD UREA NITROGEN 6 mg/dL (7-26); BUN/CREATININE RATIO 9 (6-25); CARBON DIOXIDE 26 mmol/L (22-29); CHLORIDE 107 mmol/L (98-107); CREATININE, SERUM 0.68 mg/dL (0.57-1.11); EST GLOMERULAR FILTRATION RATE > 60 ML/MIN (60-); GLUCOSE 170 mg/dL (74-118); POTASSIUM 3.8 mmol/L (3.5-5.1); SODIUM 137 mmol/L (136-145)
[2018-09-21] MEDS ORDERED: POTASSIUM CHLORIDE 20MEQ/100ML 100 ML IV ONE (15:00)
--- NOTE | 2018-09-21 15:00 | NUR ---
RECHECKED K LEVEL - 3.8 NOTED.
--- NOTE | 2018-09-21 15:05 | NUR ---
PAGED DR. LEVIN REGARDING PT POTASSIUM LEVEL.
[2018-09-21] MEDS: RIVAROXABAN 20 MG TABLET PO SCH (16:25)
--- NOTE | 2018-09-21 19:00 | NUR ---
BEDSIDE SHIFT REPORT GIVEN TO THE MARKETING ASSOCIATE RN. PT DENIED FURTHER NEEDS.
[2018-09-21] MEDS: OXAZEPAM 15 MG CAP PO PRN (21:25)
[2018-09-21] MEDS: SIMVASTATIN 80 MG TAB PO SCH (21:25)
[2018-09-21] MEDS: ZIPRASIDONE 20 MG VIAL IM PRN (22:18)
[2018-09-21] MEDS: WATER STERILE 10 ML VIAL INJ PRN (22:18)
[2018-09-21] MEDS: SODIUM CHLORIDE 0.9% 1000ML 1,000 ML IV SCH (23:37)
[2018-09-22] VITALS (8 sets, daily range): BP systolic 98–142; BP diastolic 51–74
--- NOTE | 2018-09-22 05:44 | Discharge Summary ---
HOSPITAL COURSE: Ms. Dorsey is a 68-year-old female with history of hemorrhagic stroke in June 2018, hyperlipidemia, diabetes, hypertension, came to the emergency room because she started getting confused and having twitching in her right upper extremity. MRI was positive for acute stroke. Admitted to the hospital, developed ventricular tachycardia and cardiac arrest. She received CPR. She was intubated and transferred to ICU and ruled in for a non-STEMI. She did improve back on the floor. They are refusing to go to inpatient rehab. They want to take her home. She also was found to have upper extremity DVT, so she was started on anticoagulation. PHYSICAL EXAMINATION: GENERAL: Today, she is awake. She is walking with a walker. She is alert. VITAL SIGNS: Temperature is 97.9, blood pressure 144/78. HEART: Regular rate. LUNGS: Clear to auscultation. ABDOMEN: Soft. LABORATORY DATA: On the blood work, white count is 6.15, hemoglobin is 9.9, hematocrit is 29.9. Potassium came back 2.6 and creatinine is 0.65, glucose is 115. Urine culture was positive for E. coli, for which she received IV antibiotics. ASSESSMENT: 1. Status post cardiac arrest. 2. Acute respiratory failure, status post extubation. 3. Tbi-ZM-irtsjefvi myocardial infarction. 4. Coronary artery disease, status post stent. 5. Acute stroke. 6. Left upper extremity deep venous thrombosis. 7. History of hemorrhagic stroke. 8. Seizure disorder. 9. Urinary tract infection with Escherichia coli. 10. Diabetes type 2. 11. Hypokalemia. PLAN: At the present time is to replace potassium and monitor it again. Continue PT, OT, and Keppra for seizures. The patient is on Plavix, aspirin, and Xarelto due to her coronary artery disease and DVT of the upper extremity. Continue ADA diet and sliding scale with insulin. Family is refusing inpatient rehab, so the plan is probably to discharge her when stable. Physical therapy as an outpatient and get probably home health services. All these were discussed with the patient and daughter at bedside. All questions were answered to satisfaction. Please see home medication reconciliation list. I spent more than 30 minutes examining the patient, reviewing overnight event, x-rays, lab results, and discussing plan of care. MD FAMILIA Pollard/LUANA /[id number]
--- NOTE | 2018-09-22 07:00 | NUR ---
BEDSIDE SHIFT REPORT RECEIVED FROM THE LEAD SCIENTIST RN. PT RECEIVED LYING ON BED AND SLEEPING. BED ALARM IS ON.CALL LIGHT WITH IN EASY REACH. BED IS LOCKED AND AT THE LOWEST POSITION.
[2018-09-22] MEDS: INSULIN REGULAR, HUMAN 100 UNIT/1 ML 3ML VIAL SQ SCH ×4 (07:30→20:20)
[2018-09-22] MEDS: LEVETIRACETAM ORAL SOLUTION 500 MG/5 ML SOLN PEG SCH ×2 (09:46→16:42)
[2018-09-22] MEDS: ASPIRIN 81 MG CHEW TAB NG SCH (09:47)
[2018-09-22] MEDS: CLOPIDOGREL BISULFATE 75 MG TAB PO SCH (09:48)
[2018-09-22] MEDS: AMIODARONE HCL 200 MG TAB PO SCH ×2 (09:48→16:42)
[2018-09-22] MEDS: CYANOCOBALAMIN 1,000 MCG TAB PO SCH (09:48)
[2018-09-22] MEDS: CARVEDILOL 3.125 MG TAB PO SCH ×2 (09:49→16:44)
[2018-09-22] MEDS: PANTOPRAZOLE 40 MG 10ML VIAL IV SCH ×2 (09:49→16:42)
[2018-09-22] MEDS: LISINOPRIL 2.5 MG TAB PO SCH (09:49)
--- NOTE | 2018-09-22 11:08 | NUR ---
EDUCATED ABOUT IMM, SIGNED, FILED IN CHART, WITH COPY LEFT WITH FAMILY AT BEDSIDE.
--- NOTE | 2018-09-22 12:18 | NUR ---
Cm spoke to pt's daughter Libertad Braga again at bedside. She is expressing concerns about going home now. She states that her mom is more confused than she was with previous admissions and also having hallucinations. Requesting inpatient rehab now. CM gave list of all inpatient rehab facilities in the surrounding area. Ms. Braga chose [facility] rehab. Choice letter signed and placed in chart. Copy to daughterMiguel Alamo with [facility] was notified and is here to cloth picker packet. [facility] [address] [address]
[2018-09-22] MEDS: CEPHALEXIN MONOHYDRATE 250 MG CAP PO SCH ×3 (12:30→23:09)
--- NOTE | 2018-09-22 13:49 | NUR ---
PAGED DR PORTER AND LEFT MESSAGE ABOUT PT FAMILY DECISION REGARDING TRANSFER THE PT TO IN PATIENT REHAB.
--- NOTE | 2018-09-22 14:17 | Progress Note ---
DATE: 09/22/2018 Cardiology Progress Note SUBJECTIVE: The patient confused with dysarthria. No events. OBJECTIVE: VITAL SIGNS: Temperature is 97.5, heart rate 68, respirations are 21, blood pressure is 109/61, and oxygen saturation 94% on room air. GENERAL: She is well appearing, in no apparent distress. CARDIOVASCULAR: Regular rate and rhythm. LUNGS: Clear to auscultation. ABDOMEN: Soft, nontender, and nondistended. EXTREMITIES: No edema of the lower extremities. Edema of the right upper extremity. MEDICATIONS: Cardiovascular medications reviewed. LABORATORY DATA: None recent. TELEMETRY: Monitoring revealed normal sinus rhythm. IMPRESSION: 1. Ventricular tachycardia, cardiac arrest. 2. Arr-PC-rmvxhfyxi myocardial infarction. 3. Coronary artery disease, status post percutaneous coronary intervention of the left anterior descending coronary artery. 4. Acute on chronic systolic congestive heart failure. 5. Cerebrovascular accident. 6. Upper extremity deep venous thrombosis. RECOMMENDATIONS: Continue dual antiplatelet therapy for coronary artery disease. Continue anticoagulation for venous thromboembolism. Continue to monitor closely on telemetry monitoring. Continue optimal medical therapy for her heart failure. Discuss her case with electrophysiology and recommend LifeVest at discharge with possible EP study in the future versus ICD. Woodrow Worthy DO BM/MODL /[id number]
--- NOTE | 2018-09-22 16:04 | NUR ---
Per Cally with [facility], no beds available until tomorrow. Has MOT - Accepting physician Dr. Bruce Marcus Accepting admin: Margaret Velazquez, LOADER OPERATOR Number for report is [phone] or [phone] Cally will call tomorrow to determine which location pt will go to and which number to call report to.
[2018-09-22] MEDS: RIVAROXABAN 20 MG TABLET PO SCH (16:44)
--- NOTE | 2018-09-22 18:00 | NUR ---
DARRICK LIFEVEST WEATHERIZATION DIRECTOR AT BEDSIDE. PT RECEIVED LIFEVEST . EDUCATION GIVEN TO THE FAMILY BY LIFEVEST .
--- NOTE | 2018-09-22 19:00 | NUR ---
BEDSIDE SHIFT REPORT GIVEN TO THE PET HOUSE SITTER RN. PT FAMILY AT BEDSIDE. PT DENIED FURTHER NEEDS.
--- NOTE | 2018-09-22 19:10 | NUR ---
RECEIVED PT SITTING UP IN CHAIR.PT ALERT BUT CONFUSED.NO S/S OF DISTRESS NOTED.RESPIRATIONS EVEN/NON LABORED.PT'S DAUGHTER SITTING NEXT TO HER.INSTRUCTED PT/DAUGHTER TO CALL FOR ASSISTANCE NEEDED BY PRESSING CALL LIGHT.CALL LIGHT WITHIN EASY REACH.WILL CONTINUE TO MONITOR.
[2018-09-22] MEDS: SODIUM CHLORIDE 0.9% 1000ML 1,000 ML IV SCH (20:19)
[2018-09-22] MEDS: SIMVASTATIN 80 MG TAB PO SCH (20:19)
[2018-09-22] MEDS: OXAZEPAM 15 MG CAP PO PRN (20:35)
--- NOTE | 2018-09-22 20:40 | NUR ---
ASSISTED PT TO BATHROOM,PT AMBULATED WITH WALKER AND STAND BY ASSISTANCE.PT URINATED.ASSISTED PT BACK TO BED.BED POSITIONED IN THE LOWEST WITH WHEELS LOCKED.BED ALARM ACTIVATED.CALL LIGHT WITHIN EASY REACH.WILL CONTINUE TO MONITOR.
[2018-09-22] MEDS: ZIPRASIDONE 20 MG VIAL IM PRN (22:54)
[2018-09-22] MEDS: WATER STERILE 10 ML VIAL INJ PRN (22:54)
--- NOTE | 2018-09-22 22:55 | NUR ---
PT ATTEMPTING TO GET OUT OF BED WITHOUT ASSISTANCE,PT NOTED AGITATED ATTEMPTING TO TAKE OFF TELE,GOWN.PRN MEDICATION GIVEN PER MAR FOR AGITATION.BED ALARM ACTIVATED.WILL CONTINUE TO MONITOR.
--- NOTE | 2018-09-23 01:00 | NUR ---
PT SLEEPING IN BED QUIETLY.NO S/S OF DISTRESS NOTED.RESPIRATIONS EVEN/NON LABORED.BED IN LOWEST/LOCKED POSITION.BED ALARM ACTIVATED.CALL LIGHT WITHIN EASY REACH.
--- NOTE | 2018-09-23 02:54 | Discharge Summary ---
HOSPITAL COURSE: Ms. Dorsey is a 68-year-old female with history of hemorrhagic stroke in June 2018, diabetes, hypertension, hyperlipidemia, came to the emergency room because she got confused and started having some twitching of her right upper extremity. MRI was positive for acute stroke. While in the hospital, the patient went into ventricular tachycardia and cardiac arrest. She received CPR. She was orally intubated and transferred to ICU. She ruled in for non-STEMI. She was successfully extubated and had an angiogram with a stent in place. She also was treated for urinary tract infection. She was also found to have a left upper extremity DVT and she was started on anticoagulation. At the present time, family does not want any SNF or inpatient rehab. They want to take her home and have her therapy as an outpatient. PHYSICAL EXAMINATION: GENERAL: Today, she is sleeping, but as per nurse, the patient has been confused. VITAL SIGNS: Temperature is 96.7, blood pressure 112/55. HEART: Regular. LUNGS: Poor inspiratory effort. ABDOMEN: Soft. LABORATORY DATA: On the blood work; white count is 6.15, hemoglobin is 9.9, hematocrit is 29.9. Glucose 168. Urine culture was positive for E. coli. Doppler of the left upper extremity showed DVT. DISCHARGE DIAGNOSES: 1. Status post cardiac arrest. 2. Status post acute respiratory failure. 3. Wmc-VA-lboffqeju myocardial infarction. 4. Coronary artery disease, status post stent. 5. Acute stroke. 6. Left upper extremity deep venous thrombosis. 7. Urinary tract infection with Escherichia coli. 8. History of hemorrhagic stroke. 9. Seizure disorder. 10. Diabetes type 2. 11. Hypokalemia, already corrected. PLAN: At the present time, she has been cleared by neurologist. She is on dual anticoagulation with Plavix and aspirin, and she was started on Xarelto due to the coronary artery disease and DVT as well as stroke. Continue ADA diet. Continue the diabetes home medications. Family is refusing inpatient rehab, so apparently the plan at the present time is to discharge her home with outpatient PT and OT. We will discuss with Cardiology regarding LifeVest or ICD before discharge. Please see home medication reconciliation list. I spent more than 20 minutes examining the patient, reviewing overnight event, x-rays, lab results, and planning regarding discharge options if she gets cleared by timber cutter. MD FAMILIA Pollard/LUANA /[id number]
[2018-09-23 04:00] VITALS: BP 131/58
[2018-09-23] MEDS: CEPHALEXIN MONOHYDRATE 250 MG CAP PO SCH ×3 (05:29→17:16)
--- NOTE | 2018-09-23 06:54 | NUR ---
REPORT GIVEN TO ONCOMING NURSE.WALKING ROUNDS MADE. PT RESTING IN BED WITH NO S/S OF DISTRESS.BED ALARM ACTIVATED.
--- NOTE | 2018-09-23 07:00 | NUR ---
BEDSIDE SHIFT REPORT RECEIVED FROM THE MONTESSORI PARAPROFESSIONAL RN. BED ALARM IS ON.CALL LIGHT WITH IN EASY REACH. BED IS LOCKED AND AT THE LOWEST POSITION. PT FAMILY AT BEDSIDE. PT DENIES NEEDS AT THIS TIME.
[2018-09-23] MEDS: INSULIN REGULAR, HUMAN 100 UNIT/1 ML 3ML VIAL SQ SCH ×3 (07:30→16:30)
[2018-09-23] MEDS: CYANOCOBALAMIN 1,000 MCG TAB PO SCH (08:02)
[2018-09-23] MEDS: ASPIRIN 81 MG CHEW TAB NG SCH (08:02)
[2018-09-23] MEDS: LEVETIRACETAM ORAL SOLUTION 500 MG/5 ML SOLN PEG SCH ×2 (08:02→17:14)
[2018-09-23] MEDS: PANTOPRAZOLE 40 MG 10ML VIAL IV SCH ×3 (08:02→17:17)
[2018-09-23] MEDS: CLOPIDOGREL BISULFATE 75 MG TAB PO SCH (08:02)
[2018-09-23] MEDS: AMIODARONE HCL 200 MG TAB PO SCH (08:02)
[2018-09-23 08:24] VITALS: BP 149/97
[2018-09-23 08:29] VITALS: BP 149/82
[2018-09-23] MEDS: CARVEDILOL 3.125 MG TAB PO SCH (08:33)
[2018-09-23] MEDS: LISINOPRIL 2.5 MG TAB PO SCH (08:34)
[2018-09-23] MEDS ORDERED: LISINOPRIL 2.5 MG TAB PO SCH (09:00)
[2018-09-23] MEDS ORDERED: CARVEDILOL 3.125 MG TAB PO SCH ×2 (09:00→17:00)
[2018-09-23] MEDS ORDERED: AMIODARONE HCL 200 MG TAB PO SCH ×2 (09:00→17:00)
--- NOTE | 2018-09-23 10:30 | NUR ---
PT MIGHT TRANSFER MTO [facility] TODAY PER CASE MANAGEMENT. PAGED DR. PORTER REGARDING CENTRAL LINE
--- NOTE | 2018-09-23 11:24 | NUR ---
CALL BACK FROM DR. PORTER. REMOVE CENTRAL LINE BEFORE TRANSFERRING PT TO FACILITY.
[2018-09-23 12:40] VITALS: BP 111/80
--- NOTE | 2018-09-23 12:45 | NUR ---
[facility] TO D/C PT PER DR. PORTER, BUBBA LEVIN AND EKTA. TRANSFER PT AFTER 3 PM PER CASE MANAGEMENT.
--- NOTE | 2018-09-23 13:11 | Progress Note ---
DATE: 09/23/2018 SUBJECTIVE: No events. No complaints. OBJECTIVE: VITAL SIGNS: Temperature is 96, heart rate 73, respirations are 18, blood pressure is 149/82, and ox saturation 97% on room air. GENERAL: Well appearing, in no apparent distress, seated at bedside. CARDIOVASCULAR: Regular rate and rhythm. LUNGS: Clear to auscultation. ABDOMEN: Soft, nontender, nondistended. EXTREMITIES: No clubbing, cyanosis, or edema. LABORATORY DATA: None recent. CARDIOVASCULAR MEDICATIONS: Reviewed. TELEMETRY MONITORING: Normal sinus rhythm with PACs and PVCs. IMPRESSION: 1. Ventricular tachycardia, cardiac arrest. 2. Bea-XG-ipofcamgj myocardial infarction. 3. Coronary artery disease. 4. Hygsw-zm-wkebfws systolic congestive heart failure. 5. Cerebrovascular accident. 6. Upper extremity deep venous thrombosis. RECOMMENDATIONS: Continue all current cardiovascular medications including dual antiplatelet therapy and anticoagulation. Continue to titrate heart failure medications. Increase Coreg and lisinopril. LifeVest has been fitted. She may be discharged from a cardiovascular standpoint with outpatient followup. DO NAZARIO Palmer/MODL /[id number]
--- NOTE | 2018-09-23 13:20 | NUR ---
CALLED [facility] AND GIVEN REPORT TO PABLO CHARGE NURSE. PER THE CHARGE NURSE, THEY DON'T HAVE THE ROOM YET. CALL BACK AT 1700.
[2018-09-23] MEDS: SODIUM CHLORIDE 0.9% 1000ML 1,000 ML IV SCH (14:29)
--- NOTE | 2018-09-23 15:45 | NUR ---
CALLED [facility] TO CHECK THE ROOM AVAILABILITY. PER THE CHARGE NURSE MARJORIE SHAH ROOM IS AVAILABLE BUT NOT ASSIGNED YET. SEND THE PT, ROOM WILL BE ASSIGNED UPON ARRIVAL PER THE CHARGE NURSE FROM [facility].
--- NOTE | 2018-09-23 15:58 | Discharge Summary ---
HOSPITAL COURSE: Ms. Dorsey is a 68-year-old female with history of hemorrhagic stroke in June 2018, diabetes, hypertension, hyperlipidemia, came to the emergency room because she started getting confused and had some twitching in her right upper extremity. MRI showed an acute stroke. While in the hospital, developed ventricular tachycardia and cardiac arrest. She had to be transferred to ICU and she was intubated. She also reports CPR. She was ruled in for a non-STEMI. She was successfully extubated and transferred to the floor. She also was found to have a urinary tract infection, for which she received IV antibiotics and left upper extremity DVT, for which she is getting anticoagulation. The family finally agreed for inpatient rehab, so if she gets approved today, she is going to be discharged there. PHYSICAL EXAMINATION: GENERAL: She is awake. She gets confused. VITAL SIGNS: Temperature is 96.1, blood pressure 131/58. HEART: Regular. LUNGS: Poor inspiratory effort. ABDOMEN: Soft. LABORATORY DATA: On the blood work; white count 6.15, hemoglobin 9.9, and hematocrit 29.9, glucose 191. The urine culture showed E coli. DISCHARGE DIAGNOSES: 1. Status post cardiac arrest. 2. Status post acute respiratory failure. 3. Zok-DS-tmjmjcqwp myocardial infarction. 4. Coronary artery disease, status post stent. 5. Acute stroke. 6. Left upper extremity deep vein thrombosis. 7. Urinary tract infection with Escherichia coli. 8. History of hemorrhagic stroke. 9. Seizure disorder. 10. Diabetes type 2. 11. Hypokalemia, resolved. PLAN: At present time is to continue ADA diet. Continue sliding scale. She is on Plavix, aspirin, and Xarelto. Family now is agreeable to inpatient rehab, so she is going to be transferred to inpatient rehab, once she gets an approval by insurance. Continue there PT/OT. She is also going to go on a LifeVest and then you know, she is going to get re-evaluated for possible pacemaker or defibrillator. Please see home medication reconciliation list. All this was discussed in extensively with her daughter at bedside. All questions were answered to satisfaction. MD FAMILIA Pollard/MODL /[id number]
--- NOTE | 2018-09-23 16:00 | NUR ---
RIGHT IJ TRIPLE LUMEN IV REMOVED WITH CHARGE NURSE PER THE ORDER BY DR. PORTER . PRESSURE APPLIED FOR MORE THAN 10 MINUTES. NO BLEEDING NOTED. DRESSING APPLIED. PT FAMILY AT BEDSIDE. PT DENIED FURTHER NEEDS.
[2018-09-23 17:10] VITALS: BP 114/77
[2018-09-23] MEDS: RIVAROXABAN 20 MG TABLET PO SCH (17:15)
--- NOTE | 2018-09-23 18:45 | NUR ---
PT DISCHARGED SAFELY TO [facility]IA [facility]. PT FAMILY AT BEDSIDE. TELE REMOVED. PT DENIED FURTHER NEEDS.
[2018-09-24] MEDS ORDERED: LISINOPRIL 2.5 MG TAB PO SCH (09:00)
== END 2018-09-23 18:30 | DRG 981 ==
LOC: ER 14:58 → ERHOLD 20:28 → IMCU 22:27 → OBSVTOIN 09-12 11:18 → MED/SURG3 09-13 15:30 → ICU 09-14 03:56 → MED/SURG2 09-18 17:13
PROVIDERS: ADMIT Internal Medicine; ATTEND Internal Medicine
PROC: 5A1945Z Respiratory Ventilation, 24-96 Consecutive Hours (ICD-10-PCS; 2018-09-14)
PROC: 0BH17EZ Insertion of Endotracheal Airway into Trachea, Via Natural or Artificial Opening (ICD-10-PCS; 2018-09-14)
PROC: 02HV33Z Insertion of Infusion Device into Superior Vena Cava, Percutaneous Approach (ICD-10-PCS; 2018-09-14)
PROC: B548ZZA Ultrasonography of Superior Vena Cava, Guidance (ICD-10-PCS; 2018-09-14)
PROC: 5A12012 Performance of Cardiac Output, Single, Manual (ICD-10-PCS; 2018-09-14)
PROC: 027034Z Dilation of Coronary Artery, One Artery with Drug-eluting Intraluminal Device, Percutaneous Approach (ICD-10-PCS; principal; 2018-09-19)
PROC: 4A023N7 Measurement of Cardiac Sampling and Pressure, Left Heart, Percutaneous Approach (ICD-10-PCS; 2018-09-19)
PROC: B2111ZZ Fluoroscopy of Multiple Coronary Arteries using Low Osmolar Contrast (ICD-10-PCS; 2018-09-19)
PROC: B2151ZZ Fluoroscopy of Left Heart using Low Osmolar Contrast (ICD-10-PCS; 2018-09-19)
DX: I63.512 Cerebral infarction due to unspecified occlusion or stenosis of left middle cerebral artery (principal); I46.9 Cardiac arrest, cause unspecified; I21.4 Non-ST elevation (NSTEMI) myocardial infarction; J96.01 Acute respiratory failure with hypoxia; G93.41 Metabolic encephalopathy; I50.23 Acute on chronic systolic (congestive) heart failure; I47.2 Ventricular tachycardia; N39.0 Urinary tract infection, site not specified; I69.351 Hemiplegia and hemiparesis following cerebral infarction affecting right dominant side; K81.0 Acute cholecystitis; I82.622 Acute embolism and thrombosis of deep veins of left upper extremity; E87.6 Hypokalemia; I11.0 Hypertensive heart disease with heart failure; I50.9 Heart failure, unspecified; G40.909 Epilepsy, unspecified, not intractable, without status epilepticus; I25.10 Atherosclerotic heart disease of native coronary artery without angina pectoris; Z83.3 Family history of diabetes mellitus; Z82.49 Family history of ischemic heart disease and other diseases of the circulatory system; E11.9 Type 2 diabetes mellitus without complications; E78.5 Hyperlipidemia, unspecified; R29.706 NIHSS score 6; R40.2142 Coma scale, eyes open, spontaneous, at arrival to emergency department; R40.2232 Coma scale, best verbal response, inappropriate words, at arrival to emergency department; R40.2362 Coma scale, best motor response, obeys commands, at arrival to emergency department; I69.322 Dysarthria following cerebral infarction; I69.320 Aphasia following cerebral infarction; R11.2 Nausea with vomiting, unspecified; Z85.028 Personal history of other malignant neoplasm of stomach; B96.20 Unspecified Escherichia coli [E. coli] as the cause of diseases classified elsewhere; Z79.84 Long term (current) use of oral hypoglycemic drugs
CPT/HCPCS: 31500; 36415; 36556; 36600; 70450; 70551; 71045; 74018; 74470; 76705; 76937; 80048; 80053; 80061; 81001; 82150; 82550; 82553; 82805; 82948; 83036; 83690; 83735; 83880; 84132; 84484; 85007; 85025; 85027; 85610; 85730; 87070; 87086; 87186; 87205; 92928; 92950; 93005; 93306; 93458; 93880; 93971; 94002; 94003; 95812; 96372; 97139; 99284; C1725; C1751; C1769; C1874; G0378; J0583; J0696; J1644; J1817; J2001; J2060; J2250; J2405; J2550; J2765; J3010; J3480; J3486; J7030; Q9967

== ENCOUNTER 2018-11-23 10:00 | Outpatient (RCR) | payer MEDICARE, OTHER ==
[~2018-11-23 10:00] MED LIST changes: +METFORMIN HCL500 MG PO; +METOPROLOL TART25 MG PO; +MULTI-VITAMIN1 EACH PO; +VITAMIN B-121000 MCG PO
--- NOTE | 2018-11-26 09:10 | NUR ---
ST NOTE: Pt cx apt, next scheduled for 11/29/18
--- NOTE | 2018-11-29 10:06 | NUR ---
ST NOTE: Pt cx apt, next session 12/01/18
== END 2018-12-09 ==
LOC: PT 10:00
PROVIDERS: ATTEND Psychiatry & Neurology Clinical Neurophysiology
DX: I69.351 Hemiplegia and hemiparesis following cerebral infarction affecting right dominant side (principal); M62.81 Muscle weakness (generalized)
CPT/HCPCS: 92523

== ENCOUNTER 2019-03-15 19:27 | Inpatient (IN) | payer MEDICARE, OTHER ==
[~2019-03-15] VITALS: Ht 157.5 cm; Wt 60.8 kg
[2019-03-15] MEDS ORDERED: SODIUM CHLORIDE 0.9% 1000ML 1,000 ML IV ONE (20:00)
[2019-03-15] MEDS ORDERED: ASPIRIN 81 MG CHEW TAB PO ONE (20:15)
[2019-03-15 20:25] LABS: BASOPHILS % 0.2 % (0.0-1.0); EOSINOPHILS # (AUTO) 0.1 (0.0-0.4); HEMOGLOBIN 10.9 g/dL (12.0-16.0); LYMPHOCYTES # (AUTO) 0.6 (1.0-3.2); LYMPHOCYTES % 12.7 % (18.0-39.1); MEAN CORPUSCULAR HEMOGLOBIN 31.7 pg (28-32); MEAN CORPUSCULAR VOLUME 95.9 fL (81-99); MONOCYTES # (AUTO) 0.5 (0.2-0.8); MONOCYTES % 9.5 % (4.4-11.3); NEUTROPHILS # (AUTO) 3.8 (2.1-6.9); NEUTROPHILS % 76.2 % (38.7-80.0); PLATELET COUNT 191 x10e3/uL (140-360); RED BLOOD COUNT 3.44 x10e6/uL (3.6-5.1); RED CELL DISTRIBUTION WIDTH 15.1 % (11.7-14.4)
[2019-03-15 20:34] LABS: INR 4.89
[2019-03-15 20:35] LABS: PARTIAL THROMBOPLASTIN TIME 71.4 seconds (23.8-35.5)
[2019-03-15 20:41] LABS: ALANINE AMINOTRANSFERASE 255 IU/L (0-55); ALBUMIN 2.2 g/dL (3.5-5.0); ALBUMIN/GLOBULIN RATIO 0.6 (0.8-2.0); ALKALINE PHOSPHATASE 125 IU/L (40-150); ANION GAP 13.8 mmol/L (8-16); BLOOD UREA NITROGEN 14 mg/dL (7-26); BUN/CREATININE RATIO 19 (6-25); CALCIUM 8.5 mg/dL (8.4-10.2); CARBON DIOXIDE 30 mmol/L (22-29); CHLORIDE 99 mmol/L (98-107); CREATINE KINASE 172 IU/L (29-168); CREATININE, SERUM 0.74 mg/dL (0.57-1.11); EST GLOMERULAR FILTRATION RATE > 60 ML/MIN (60-); GLUCOSE 97 mg/dL (74-118); SODIUM 140 mmol/L (136-145)
[2019-03-15 20:44] LABS: PROTHROMBIN TIME 48.2 seconds (11.9-14.5)
[2019-03-15 20:45] LABS: POTASSIUM 2.8 mmol/L (3.5-5.1)
--- NOTE | 2019-03-15 20:47 | Diagnostic Imaging Report ---
Examination: Single AP view of the chest. COMPARISON: None. INDICATION: Weakness DISCUSSION: Lines/tubes: None. Lungs: The lungs are well inflated and clear. No pneumonia or pulmonary edema. Pleura: No pleural effusion or pneumothorax. Heart and mediastinum: The heart and the mediastinum are unremarkable. Bones and soft tissues: No acute bony abnormalities. IMPRESSION: 1. No acute cardiopulmonary abnormalities. Signed by: Dr. Thomas Mcclellan M.D. on 03/15/2019 8:44 PM
--- NOTE | 2019-03-15 20:58 | Diagnostic Imaging Report ---
History:Generalized weakness Comparison studies:CT head 09/14/2018 Technique: Axial images were obtained from the skull base to the vertex. Coronal and sagittal images reconstructed from the axial data. Intravenous contrast: None Dose modulation, iterative reconstruction, and/or weight based adjustment of the mA/kV was utilized to reduce the radiation dose to as low as reasonably achievable. Findings: Scalp/skull: Left temporal craniotomy changes. Extra-axial spaces: No masses. No fluid collections. Brain sulci: Mildly prominent. Ventricles: Mild compensatory dilatation. No hydrocephalus. Parenchyma: Left posterior temporal and lateral occipital cortical based hypodensity with associated volume loss, secondary to encephalomalacia . Few hypodensities in the supratentorial white matter are small vessel ischemic changes. No masses, hemorrhage or acute cortical vascular insults. Sellar/suprasellar region: No abnormalities. Craniocervical junction: Patent foramen magnum. No Chiari one malformation. Incidental findings: Atherosclerotic calcifications in the carotid siphons and vertebral arteries . Impression: No acute abnormalities. No significant change from previous examination. Left temporal and occipital encephalomalacia, secondary to remote insult. Mild diffuse volume loss. Mild chronic microvascular ischemic changes of the Signed by: DR Haider Enriquez M.D. on 03/15/2019 8:55 PM
[2019-03-15 21:08] LABS: AMYLASE 15 U/L (25-125); LIPASE 8 U/L (8-78)
[2019-03-15] MEDS ORDERED: SODIUM CHLORIDE 0.9% 50ML 50 ML ONE (21:23)
[2019-03-15] MEDS ORDERED: IOPAMIDOL 370 MG/ML 200 ML INFUS..BTL INJ ONE (21:23)
[2019-03-15 21:24] LABS: BILIRUBIN,URINE LARGE (NEGATIVE); CLARITY,URINE SL CLOUDY (CLEAR); COLOR,URINE STRAW (YELLOW); KETONES,URINE 1+ (NEGATIVE); LEUKOCYTE ESTERASE ,URINE NEGATIVE (NEGATIVE); NITRITE,URINE NEGATIVE (NEGATIVE); PROTEIN,URINE DIPSTICK 1+ (NEGATIVE); URINE UROBILINOGEN 8 mg/dL (0.2 - 1)
[2019-03-15 21:36] LABS: BACTERIA,URINE MANY /HPF; TRANSITIONAL EPI CELLS,URINE RARE; WBC,URINE (MAN) 0-5 /HPF (0-5)
[2019-03-15] MEDS ORDERED: KCL 20MEQ/.9 SOD CHL 1,000 ML IV ONE (22:00)
--- NOTE | 2019-03-15 23:45 | Diagnostic Imaging Report ---
EXAM: CT Abdomen and Pelvis WITH contrast INDICATION: Abdominal pain. Elevated LFTs. COMPARISON: None. TECHNIQUE: Abdomen and pelvis were scanned utilizing a multidetector helical scanner from the lung base to the pubic symphysis after administration of IV contrast. Coronal and sagittal reformations were obtained. Routine protocol was performed. Scan was performed when during portal venous phase. IV CONTRAST: 100 cc is of view 370. ORAL CONTRAST: Water RADIATION DOSE: Total DLP: 427.28 mGy*cm Estimated effective dose: (DLP x 0.015 x size factor) mSv COMPLICATIONS: None FINDINGS: LINES and TUBES: None. LOWER THORAX: There is bibasilar atelectasis. Calcifications of the coronary arteries. HEPATOBILIARY: No focal hepatic lesions. Mild central intrahepatic biliary dilatation. GALLBLADDER: Hyperdensity layering within the gallbladder lumen consistent with calculi. No wall thickening. SPLEEN: No splenomegaly. PANCREAS: Diffuse pancreatic atrophy. No focal masses or ductal dilatation. ADRENALS: No adrenal nodules KIDNEYS/URETERS: Kidneys enhance symmetrically. No hydronephrosis. No cystic or solid mass lesions. No stones. GI TRACT: No abnormal distention, wall thickening, or evidence of bowel obstruction. Appendix is normal. PELVIC ORGANS/BLADDER: The uterus is absent. Multiple phleboliths scattered throughout the pelvis. Mild diffuse wall thickening of the urinary bladder is likely related to underdistention. LYMPH NODES: No lymphadenopathy. VESSELS: There is moderate atherosclerotic disease in the aorta and major arterial branches. PERITONEUM / RETROPERITONEUM: No free air or fluid. BONES: There are degenerative changes in the lumbar spine. Grade 1 anterolisthesis of L5 in relation to S1. SOFT TISSUES: Mild diffuse subcutaneous edema. IMPRESSION: 1. Cholelithiasis. Mild central intrahepatic biliary dilation. Signed by: Dr. Megan Dyer M.D. on 03/15/2019 11:42 PM
[2019-03-16] MEDS ORDERED: ONDANSETRON HCL INJ 2MG/ML 2ML 2 MG/ML VIAL IV PRN (00:30)
[2019-03-16] MEDS: PIPER-TAZ 3.375 GM / NS 50ML IV SCH ×4 (01:51→21:08)
[2019-03-16 08:02] LABS: BASOPHILS % 0.3 % (0.0-1.0); EOSINOPHILS % 0.5 % (0.0-6.0); HEMATOCRIT 32.6 % (34.2-44.1); HEMOGLOBIN 10.4 g/dL (12.0-16.0); LYMPHOCYTES # (AUTO) 0.6 (1.0-3.2); LYMPHOCYTES % 15.1 % (18.0-39.1); MEAN CORPUSCULAR HEMOGLOBIN 31.2 pg (28-32); MEAN CORPUSCULAR HGB CONC 31.9 g/dL (31-35); MEAN CORPUSCULAR VOLUME 97.9 fL (81-99); MONOCYTES # (AUTO) 0.4 (0.2-0.8); MONOCYTES % 8.9 % (4.4-11.3); NEUTROPHILS # (AUTO) 2.9 (2.1-6.9); NEUTROPHILS % 74.9 % (38.7-80.0); PLATELET COUNT 172 x10e3/uL (140-360); RED BLOOD COUNT 3.33 x10e6/uL (3.6-5.1); RED CELL DISTRIBUTION WIDTH 15.1 % (11.7-14.4)
[2019-03-16 08:25] LABS: INR 2.48; PROTHROMBIN TIME 27.9 seconds (11.9-14.5)
[2019-03-16 09:27] LABS: ALANINE AMINOTRANSFERASE 204 IU/L (0-55); ALBUMIN 1.9 g/dL (3.5-5.0); ALBUMIN/GLOBULIN RATIO 0.6 (0.8-2.0); ALKALINE PHOSPHATASE 111 IU/L (40-150); BLOOD UREA NITROGEN 9 mg/dL (7-26); BUN/CREATININE RATIO 15 (6-25); CALCIUM 7.5 mg/dL (8.4-10.2); CARBON DIOXIDE 23 mmol/L (22-29); CHLORIDE 104 mmol/L (98-107); EST GLOMERULAR FILTRATION RATE > 60 ML/MIN (60-); GLUCOSE 81 mg/dL (74-118); SODIUM 138 mmol/L (136-145)
--- NOTE | 2019-03-16 11:03 | Consultation ---
DATE OF CONSULTATION: 03/16/2019 REASON FOR CONSULTATION: Abdominal pain, abnormal liver chemistries, gallstones by CT. HISTORY OF PRESENT ILLNESS: The patient is a 69-year-old female with a multitude of medical problems, who the day prior to admission developed abdominal pain which was according to the daughter located in the lower abdomen. The patient is a very poor historian and the history is taken mainly from her daughter. She is lethargic but is able to answer some questions. There was no nausea or vomiting associated with abdominal pain. Prior to that, the patient for several weeks now has been eating very poorly and has been very weak. She has decreased appetite. PAST MEDICAL HISTORY: A complex one. She has a history of severe coronary artery disease, she has a history of a heart attack, which according to the daughter was massive. She developed a stroke as a result of that last year. In June of 2018, she had craniotomy for an aneurysm. She has diabetes, hypertension, seizures and depression. PREVIOUS SURGERIES: Include in addition to the craniotomy, gastric bypass, hernia repair, hysterectomy and shoulder surgery. SOCIAL HISTORY: The patient at this point does not drink, does not smoke. ALLERGIES: SHE HAS NO KNOWN ALLERGIES. MEDICATIONS: Include: 1. Clopidogrel 75 mg one daily. 2. Xarelto 20 mg one daily. 3. Atorvastatin 40 mg daily. 4. Keppra 1000 mg b.i.d. 5. Sertraline 100 mg daily. 6. Januvia 100 mg daily. 7. Carvedilol 1.25 one daily. 8. Vitamin D 1 weekly. 9. Sucralfate 1 g daily. LABORATORY DATA: Admission laboratory revealed sodium 140, potassium 2.8. BUN and creatinine are normal with a GFR of greater than 60. Blood sugar is 97. Amylase and lipase are normal. Liver chemistries reveal a bilirubin of 1.4, AST of 800, alkaline phosphatase of 125, ALT of 255. Coagulations reveal a PT of 48 and INR of 4.9, a PTT of 71.4. Admission CT scan of the abdomen and pelvis reveals cholelithiasis with mild central intrahepatic biliary dilatation. There are no acute abdominal findings. Of note is the fact that there is mild diffuse subcutaneous edema. Admission chest x-ray revealed no acute process. Brain CT performed during this admission revealed no acute abnormalities. There is mild diffuse volume loss and mild chronic microvascular changes. PHYSICAL EXAMINATION: GENERAL: Reveals a 69-year-old female who appears lethargic. She has difficulties answering questions, but is arousable. At this point, she denies any pain or any distress. She is awake, not in any distress. She is lying in bed quietly. VITAL SIGNS: She is afebrile with stable vital signs. Her pulse oximetry reveals 100% saturation. HEENT: Examination of the head, ears, nose and throat reveals no acute process. LUNGS: Revealed decreased breath sounds and clear lung berkowitz. HEART: Reveals regular rhythm. ABDOMEN: Soft and nontender. There are healed scars along the midline without any hernias. EXTREMITIES: Reveal 1 to 2+ pitting edema. ASSESSMENT: A 69-year-old female with multiple chronic medical problems as previously described, who presents to the emergency room complaining of abdominal pain, which now has subsided. CT scan revealed cholelithiasis, mild central ductal dilatation. There are no acute processes. She has hypokalemia. Her coagulations are grossly abnormal. I presume this is due to Xarelto. PLANS AND RECOMMENDATIONS: At this point, the patient is to have a full evaluation of her liver chemistries abnormalities and her abdominal pain. Dr. Ruben Junior has been consulted. I will ask since this is a patient of Dr. Lomas to have cardiac evaluation. An MRCP is pending. Once the workup is completed, then we can make some further recommendations. She is hypokalemic and that needs to be replaced. I will be following the patient along with you. MD SANDRA Carbajal/LUANA /[id number]
--- NOTE | 2019-03-16 14:38 | Diagnostic Imaging Report ---
MRI/MRCP of the abdomen, without contrast, 03/16/2019. History: Abdominal pain, concern for choledocholithiasis. Comparison: CT to 05/30/2019. TECHNIQUE: Multiplanar, multisequence images of the abdomen were acquired without the administration of intravenous gadolinium as per the MRCP protocol. Three-dimensional reconstructions were acquired and utilized by the dictating radiologist at the time of interpretation. Discussion: The gallbladder contains small filling defects layering posteriorly without evidence of wall thickening or pericholecystic fluid. There is no intrahepatic or extrahepatic ductal dilatation. The CBD measures 5 mm in diameter. There is no intraluminal filling defect. Evaluation of intra-abdominal organs is limited without IV contrast. The liver, spleen, pancreas, kidneys, and adrenal glands are unremarkable. There is no evidence of free fluid. IMPRESSION: Cholelithiasis without evidence of extrahepatic biliary duct dilatation or choledocholithiasis. Signed by: Omkar Caballero on 03/16/2019 2:35 PM
--- NOTE | 2019-03-16 16:00 | History and Physical ---
HISTORY OF PRESENT ILLNESS: Ms. Dorsey is a 69-year-old female with a history of brain aneurysm in June 2018, history of CVA in September 2018, coronary artery disease status post stent, hypertension, hyperlipidemia, diabetes type 2, who came to the emergency room yesterday complaining of few hours where the patient started having diffuse abdominal pain. She denies any nausea, vomiting, diarrhea, constipation, or fever. PAST MEDICAL HISTORY: 1. The patient had a brain aneurysm in June 2018. 2. History of CVA in September 2018. 3. Coronary artery disease, status post stent. 4. Diabetes type 2. 5. Hypertension. 6. Hyperlipidemia. ALLERGIES: NO KNOWN DRUG ALLERGIES. SOCIAL HISTORY: She does not smoke. She does not drink. She lives at home with her daughter. PAST SURGICAL HISTORY: 1. She had a stomach surgery for apparently stomach cancer in the past. 2. Hernia repair. 3. Shoulder surgery. PHYSICAL EXAMINATION: GENERAL: Today, she is awake. She is alert. VITAL SIGNS: Temperature is 98 and blood pressure is 126/62. HEART: Regular rate. LUNGS: Poor inspiratory effort. ABDOMEN: Soft. No distention. LABORATORY DATA: On the blood work; white count is 3.92, hemoglobin is 10.4, and hematocrit 32.6. Potassium was 2.8 yesterday. Creatinine 0.74. Bilirubin 1.4, AST 809, ALT 255, alkaline phosphatase is 125, so is normal. Amylase came back and lipase came back normal. She had a chest x-ray on admission that shows no acute cardiopulmonary findings. She had a head CT that shows no acute abnormalities and some chronic changes. She had an abdominal and pelvic CT that shows cholelithiasis with mild central intrahepatic biliary dilatation. ASSESSMENT AND PLAN: 1. Abdominal pain. 2. Cholelithiasis with mild intrahepatic biliary dilatation. 3. Elevated liver enzymes. 4. History of cerebrovascular accident. 5. Deconditioning. 6. Coronary artery disease, status post stent. 7. Diabetes type 2, uncontrolled. 8. Hypertension. 9. Hyperlipidemia. PLAN: Plan at the present time is to admit the patient to the hospital. We are going to get a GI consult and a surgical consult. So far the patient is n.p.o., but once she can eat she is going to be on ADA diet. Continue sliding scale with insulin. We will reconcile the medications once we have them available. All this was discussed in extension with the patient and daughter at bedside. All questions were answered to satisfaction. MD FAMILIA Pollard/LUANA /[id number]
[2019-03-16 16:17] VITALS: BP 125/64
[2019-03-16 16:24] VITALS: BP 125/64
[2019-03-16] MEDS: PANTOPRAZOLE 40 MG 10ML VIAL IV SCH (18:17)
[2019-03-16 20:00] VITALS: BP 126/58
[2019-03-16] MEDS ORDERED: SODIUM CHLORIDE 0.9% 250ML 250 ML ONE (20:46)
[2019-03-16 21:14] VITALS: BP 126/58
[2019-03-17] VITALS (7 sets, daily range): BP systolic 116–189; BP diastolic 56–77
[2019-03-17] MEDS: PANTOPRAZOL 40MG/SOD CHL 0.9% 50 ML IV SCH (01:00)
[2019-03-17] MEDS: PIPER-TAZ 3.375 GM / NS 50ML IV SCH ×3 (05:06→21:47)
[2019-03-17 05:59] LABS: BASOPHILS % 0.4 % (0.0-1.0); EOSINOPHILS % 0.5 % (0.0-6.0); HEMATOCRIT 33.5 % (34.2-44.1); HEMOGLOBIN 10.8 g/dL (12.0-16.0); LYMPHOCYTES # (AUTO) 0.7 (1.0-3.2); LYMPHOCYTES % 11.9 % (18.0-39.1); MEAN CORPUSCULAR HGB CONC 32.2 g/dL (31-35); MEAN CORPUSCULAR VOLUME 96.3 fL (81-99); MONOCYTES # (AUTO) 0.4 (0.2-0.8); MONOCYTES % 7.5 % (4.4-11.3); NEUTROPHILS # (AUTO) 4.5 (2.1-6.9); NEUTROPHILS % 79.3 % (38.7-80.0); PLATELET COUNT 201 x10e3/uL (140-360); RED BLOOD COUNT 3.48 x10e6/uL (3.6-5.1)
[2019-03-17 06:10] LABS: INR 1.28; PROTHROMBIN TIME 16.4 seconds (11.9-14.5)
[2019-03-17 06:18] LABS: ALANINE AMINOTRANSFERASE 171 IU/L (0-55); ALBUMIN/GLOBULIN RATIO 0.6 (0.8-2.0); ALKALINE PHOSPHATASE 116 IU/L (40-150); BLOOD UREA NITROGEN 8 mg/dL (7-26); BUN/CREATININE RATIO 13 (6-25); CALCIUM 7.8 mg/dL (8.4-10.2); CARBON DIOXIDE 23 mmol/L (22-29); CHLORIDE 101 mmol/L (98-107); CREATININE, SERUM 0.62 mg/dL (0.57-1.11); EST GLOMERULAR FILTRATION RATE > 60 ML/MIN (60-); GLUCOSE 68 mg/dL (74-118); SODIUM 139 mmol/L (136-145)
[2019-03-17 06:20] LABS: LIPASE < 4 U/L (8-78)
[2019-03-17] MEDS ORDERED: POTASSIUM CHLORIDE 20 MEQ TAB CR PO ONE (09:20)
--- NOTE | 2019-03-17 12:04 | Progress Note ---
DATE: 03/17/2019 SUBJECTIVE: Ms. Dorsey is a 69-year-old female with history of brain aneurysm in June 2018, history of CVA in September 2018, coronary artery disease status post stent, hypertension, hyperlipidemia, diabetes type 2, came to the emergency room complaining of abdominal pain. She was found to have elevated liver enzymes, but alkaline phosphatase was negative. No nausea, vomiting, diarrhea, or fever. Had an MRCP that was negative for choledocholithiasis. She was seen by GI surgeon. PHYSICAL EXAMINATION: GENERAL: Today, she is awake. She is alert. VITAL SIGNS: Temperature is 98.5, blood pressure 189/77. HEART: Regular rate. LUNGS: Poor inspiratory effort. ABDOMEN: Soft. LABORATORY DATA: On the blood work potassium 3.0, creatinine is 0.62, and glucose is 68. AST 458, ALT 171. Abdominal and pelvic CT show cholelithiasis with mild central intrahepatic biliary dilatation. ASSESSMENT: 1. Abdominal pain, resolved. 2. Cholelithiasis with negative MRCP. 3. Elevated liver enzymes. 4. History of cerebrovascular accident. 5. Deconditioning. 6. Coronary artery disease, status post stent. 7. Diabetes type 2, uncontrolled. 8. Hypertension. 9. Hyperlipidemia. PLAN: Plan at the present time, MRCP was negative for stones. The patient has multiple comorbidities so far. She is at high risk for surgery, so she was started on clear liquid diet. We are going to replace the potassium. Continue to monitor liver enzymes that are slowly going down probably due to her high risk. The patient is at high risk for surgery at this point. Surgeon discussed these with the patient and daughter as well as I discussed the results on the tests. We will follow her. If she is pain free, she can tolerate feedings and if there is no plan for surgery, she may be able to go home tomorrow. MD FAMILIA Pollard/LUANA /[id number]
[2019-03-17] MEDS ORDERED: LIDOCAINE HCL 2% LOCAL INJ 5 ML SDV VIAL INJ ONE (14:04)
[2019-03-17] MEDS ORDERED: PROPOFOL IV EMULSION 10 MG/ML 50 ML VIAL ONE (14:04)
[2019-03-17] MEDS ORDERED: EPINEPHRINE HCL 1:1000 1ML 1 MG/ML AMP ONE (16:23)
[2019-03-17] MEDS: PANTOPRAZOLE 40 MG 10ML VIAL IV SCH (17:02)
[2019-03-17] MEDS ORDERED: PANTOPRAZOLE 40 MG 10ML VIAL IV STA (23:27)
[2019-03-18] VITALS: BP 133/65
[2019-03-18 04:00] VITALS: BP 161/70
[2019-03-18] MEDS: PANTOPRAZOL 40MG/SOD CHL 0.9% 50 ML IV SCH ×2 (04:30→08:56)
[2019-03-18] MEDS ORDERED: PANTOPRAZOLE 40 MG 10ML VIAL IV STA (05:27)
[2019-03-18] MEDS: METOCLOPRAMIDE HCL 10 MG/2ML VIAL IV SCH ×3 (05:29→11:58)
[2019-03-18] MEDS: PIPER-TAZ 3.375 GM / NS 50ML IV SCH (05:30)
[2019-03-18 05:45] LABS: BASOPHILS % 0.3 % (0.0-1.0); EOSINOPHILS % 0.7 % (0.0-6.0); HEMATOCRIT 31.5 % (34.2-44.1); HEMOGLOBIN 10.1 g/dL (12.0-16.0); LYMPHOCYTES # (AUTO) 0.7 (1.0-3.2); LYMPHOCYTES % 12.7 % (18.0-39.1); MEAN CORPUSCULAR HEMOGLOBIN 30.9 pg (28-32); MEAN CORPUSCULAR HGB CONC 32.1 g/dL (31-35); MEAN CORPUSCULAR VOLUME 96.3 fL (81-99); MONOCYTES # (AUTO) 0.5 (0.2-0.8); MONOCYTES % 8.1 % (4.4-11.3); NEUTROPHILS # (AUTO) 4.5 (2.1-6.9); NEUTROPHILS % 77.9 % (38.7-80.0); PLATELET COUNT 184 x10e3/uL (140-360); RED BLOOD COUNT 3.27 x10e6/uL (3.6-5.1); RED CELL DISTRIBUTION WIDTH 15.2 % (11.7-14.4)
[2019-03-18 05:59] LABS: INR 1.1; PROTHROMBIN TIME 14.9 seconds (11.9-14.5)
[2019-03-18 06:14] LABS: ALANINE AMINOTRANSFERASE 141 IU/L (0-55); ALBUMIN 2.1 g/dL (3.5-5.0); ALBUMIN/GLOBULIN RATIO 0.6 (0.8-2.0); ALKALINE PHOSPHATASE 118 IU/L (40-150); ANION GAP 15.3 mmol/L (8-16); BLOOD UREA NITROGEN 7 mg/dL (7-26); BUN/CREATININE RATIO 11 (6-25); CALCIUM 7.7 mg/dL (8.4-10.2); CARBON DIOXIDE 25 mmol/L (22-29); CHLORIDE 103 mmol/L (98-107); CREATININE, SERUM 0.66 mg/dL (0.57-1.11); EST GLOMERULAR FILTRATION RATE > 60 ML/MIN (60-); GLUCOSE 90 mg/dL (74-118); POTASSIUM 3.3 mmol/L (3.5-5.1); SODIUM 140 mmol/L (136-145)
[2019-03-18 06:54] LABS: FERRITIN 135.35 ng/mL (4.63-204.00)
[2019-03-18] MEDS: SUCRALFATE 1 GM TAB PO SCH ×2 (07:30→11:58)
[2019-03-18 07:33] VITALS: BP 166/68
[2019-03-18 08:24] VITALS: BP 166/68
[2019-03-18] MEDS ORDERED: BALSAM PERU/CASTOR OIL 60 GM OINT...G. TP SCH (10:30)
[2019-03-18 11:10] VITALS: BP 146/67
[2019-03-18 15:20] VITALS: BP 152/67
--- NOTE | 2019-03-19 05:08 | Discharge Summary ---
HISTORY OF PRESENT ILLNESS: Ms. Dorsey is a 69-year-old female who had a brain aneurysm in June 2018 and had a CVA in September 2018. She has coronary artery disease, status post stent, hypertension, hyperlipidemia, diabetes, came to the emergency room complaining of abdominal pain. Alkaline phosphatase was normal. Liver enzymes were elevated and slowly going down. MRCP did not show any choledocholithiasis. She had EGD done yesterday that showed a mass in her stomach. To notice that the patient apparently has history of stomach cancer in the past. PHYSICAL EXAMINATION: GENERAL: Today, she is sitting out of bed. She is awake. She is alert. She is feeling better. VITAL SIGNS: Temperature is 95.9, blood pressure is 166/68. HEART: Regular rate. LUNGS: Poor inspiratory effort. ABDOMEN: Soft. LABORATORY DATA: On the blood work, white count is 5.82, hemoglobin 10.1, hematocrit 31.5. Liver enzymes are slowly going down. Potassium 3.3. Creatinine 0.66, glucose was 90. ASSESSMENT: 1. Abdominal pain. 2. with negative MRCP. 3. Elevated liver enzymes, going down. 4. History of cerebrovascular accident. 5. Deconditioning. 6. Coronary artery disease, status post stent. 7. Diabetes type 2. 8. Hypertension. 9. Hyperlipidemia. 10. Stomach mass concerning for a recurrence of past cancer. PLAN: Plan at the present time, the patient was started on diet. She is tolerating. She is a very poor candidate for any type of surgery and she does not have any sign of cholecystitis, so no gallbladder surgery at present time and there is a concern of recurrence of tumor in the stomach, so she has to follow up with Dr. Junior for the results of the biopsy. Continue all home medications. To notice that this is a patient with multiple medical problems with a very guarded prognosis, but the daughter and patient are willing to go home today and follow up as an outpatient. Please see home medication reconciliation list. All this was discussed with the patient and daughter at bedside. All questions were answered to satisfaction. MD FAMILIA Pollard/MODL /[id number]
--- NOTE | 2019-03-21 09:26 | Consultation ---
DATE OF CONSULTATION: 03/18/2019 Cardiology Consultation HISTORY OF PRESENT ILLNESS: This is a 69-year-old woman with a history of ventricular tachycardia, cardiac arrest, coronary artery disease, status post percutaneous coronary intervention to the left anterior descending coronary artery, former systolic congestive heart failure, which is now recovered, hypertension, hyperlipidemia, history of left upper extremity deep venous thrombosis, history of cerebral vascular accident, diabetes mellitus, and chronic deconditioning, who presented to the emergency department with abdominal discomfort. She was found to have cholelithiasis and elevated liver enzymes. However, MRCP showed no cholecystitis. Surgery was originally planned, however, has been discontinued. She is currently feeling well. Denies any chest pain, shortness of breath, or palpitations. REVIEW OF SYSTEMS: A 12-point review of system was conducted, is negative except as stated above in the HPI. PAST MEDICAL HISTORY: As stated in the HPI. PAST SURGICAL HISTORY: Percutaneous coronary intervention. PAST FAMILY HISTORY: Noncontributory to current illness. SOCIAL HISTORY: No illicit drug, alcohol, or tobacco use. ALLERGIES: NO KNOWN DRUG ALLERGIES. MEDICATIONS: See medication reconciliation form. PHYSICAL EXAMINATION: VITAL SIGNS: Temperature 98, heart rate 72, respirations are 18, blood pressure is 152/67, ox saturation 97% on room air. GENERAL: Well appearing, no apparent distress, alert, and orient x3. HEAD: Normocephalic, atraumatic. Eyes, the extraocular moves are intact. Conjunctivae clear. NECK: No JVD. No bruits. CARDIOVASCULAR: She has regular rate and rhythm. No murmurs. LUNGS: Clear to auscultation. No wheezing or rales. ABDOMEN: Soft, nontender, nondistended. EXTREMITIES: No clubbing, cyanosis or edema. VASCULAR: Diminished pulses. SKIN: Warm, dry and intact. NEUROLOGIC: No focal deficits noted. Cranial nerves grossly intact. PSYCHIATRIC: Normal mood and affect. LABORATORY DATA: Reviewed. Hemoglobin 10.1, creatinine 0.66. Elevated liver function tests. Echocardiogram showed preserved left ventricular systolic function with aortic sclerosis. IMPRESSION: 1. Abdominal pain, resolved. 2. Cholelithiasis. 3. Elevated liver enzymes. 4. Coronary artery disease, status post percutaneous coronary intervention. 5. History of cardiac arrest. 6. History of chronic systolic congestive heart failure, now resolved with normal left ventricular systolic function. 7. Hypertension. 8. Hyperlipidemia. RECOMMENDATION: If the patient should need to go to surgery, she would be [id number] risk. Continue current cardiovascular medications including antiplatelet regimen. Continue optimal medical therapy for heart failure. She is stable from a cardiovascular standpoint for discharge. DO NAZARIO Palmer/LUANA /[id number]
== END 2019-03-18 13:13 | disposition home or self-care (01) | DRG 445 ==
LOC: ER 19:27 → ERHOLD 03-16 00:24 → MED/SURG3 03-16 15:44
PROVIDERS: ADMIT Internal Medicine; ATTEND Internal Medicine
PROC: 0DB68ZX Excision of Stomach, Via Natural or Artificial Opening Endoscopic, Diagnostic (ICD-10-PCS; principal; 2019-03-17 16:03)
DX: K80.20 Calculus of gallbladder without cholecystitis without obstruction (principal); E44.1 Mild protein-calorie malnutrition; I50.22 Chronic systolic (congestive) heart failure; K31.9 Disease of stomach and duodenum, unspecified; Z68.24 Body mass index [BMI] 24.0-24.9, adult; I11.0 Hypertensive heart disease with heart failure; I25.10 Atherosclerotic heart disease of native coronary artery without angina pectoris; Z95.5 Presence of coronary angioplasty implant and graft; E78.5 Hyperlipidemia, unspecified; Z86.73 Personal history of transient ischemic attack (TIA), and cerebral infarction without residual deficits; E87.6 Hypokalemia; E11.9 Type 2 diabetes mellitus without complications; K20.9 Esophagitis, unspecified; K82.8 Other specified diseases of gallbladder
CPT/HCPCS: 36415; 43239; 43255; 70450; 71045; 74177; 74181; 80053; 81001; 82150; 82248; 82550; 82553; 82728; 82746; 82948; 83540; 83605; 83690; 84466; 84484; 85025; 85045; 85610; 85730; 88305; 88312; 93005; 93306; 99285; J0171; J2001; J2405; J2543; J2765; J7050; Q9967

== ENCOUNTER → 2019-04-22 | Outpatient (CLI) | payer MEDICARE, OTHER ==
--- NOTE | 2019-04-22 15:42 | Diagnostic Imaging Report ---
PROCEDURE: X-RAY MODIFIED BARIUM SWALLOW COMPARISON: None. INDICATION: Aspiration Radiation Details: Fluoroscopy time: 3.2 minutes Cumulative dose: 11.6 mGy DISCUSSION: Fluoroscopic examination was performed in conjunction with speech pathology during swallowing a variety of thin and thick liquid consistencies. Provided images demonstrate laryngeal penetration and aspiration. CONCLUSION: Modified barium swallow demonstrating laryngeal penetration and aspiration. Please refer to the speech pathology report for further details. Signed by: Monae Begum MD on 04/22/2019 3:39 PM
== END ==
LOC: DX 10:44
PROVIDERS: ATTEND Internal Medicine
DX: R13.11 Dysphagia, oral phase (principal); R47.9 Unspecified speech disturbances; Z86.73 Personal history of transient ischemic attack (TIA), and cerebral infarction without residual deficits; Z86.69 Personal history of other diseases of the nervous system and sense organs
CPT/HCPCS: 74230